=== PATIENT | female | born 1980 | race Caucasian/White ===

== ENCOUNTER 2019-11-22 02:27 | Emergency (ER) | payer OTHER, SELFPAY ==
--- NOTE | ~2019-11-22 | XR_ITS ---
EXAMINATION: XR chest 2V EXAM DATE: 11/22/2019 03:36 INDICATION: Mid chest pain, tightness and heaviness. TECHNIQUE: Frontal and lateral projections of the chest obtained and reviewed. Comparison is made to prior examination from 02/16/2010. FINDINGS: The lungs are clear. There are no pleural effusions. The cardiomediastinal silhouette is within normal limits. There is no pneumothorax suspected. The bones and soft tissues are unremarkab le. IMPRESSION: Normal chest x-ray exam. Reviewed, dictated and finalized at location A. IMPRESSION: Normal chest x-ray exam.
--- NOTE | 2019-11-22 02:38 | ECG_ITS ---
Measurements Intervals [place] Rate: 103 P: 56 IA: 136 QRS: 15 QRSD: 93 T: 28 QT: 350 QTc: 458 Interpretive Statements SINUS TACHYCARDIA BASELINE ARTIFACT- I, III, AVL BORDERLINE ECG Electronically Signed On 11-26-2019 8:03:07 CDT by Aaron Suero D.O.
[2019-11-22 02:40] VITALS: BP 86/50; PULSE 80; RESP 17; TEMP 36.4; O2SAT 100
[2019-11-22 02:50] VITALS: BP 129/103; PULSE 102; RESP 19; TEMP 36.6; O2SAT 100
[2019-11-22 03:00] VITALS: PULSE 80
[2019-11-22] MEDS: LORazepam INJ (*CRX) 2 MG/ML VIAL 0.5 MG IV PUSH (03:09)
[2019-11-22 03:24] LABS: Basophils Percent Auto 0.4 % (0.2-1.2); Eosinophils Absolute Auto 0.2 K/mm3 (0-0.3); Eosinophils Percent Auto 1.5 % (0-4.4); Hemoglobin 15.3 g/dL (12.0-15.0); Immature Granulocyte Absolute 0.03 K/mm3 (0.00-0.031); Immature Granulocyte Percent A 0.3 % (0-0.5); Lymphocytes Absolute Auto 3.07 K/mm3 (0.9-3.2); Lymphocytes Percent Auto 28.5 % (18.3-44.2); Mean Corpuscular Hemoglobin 30.1 pg (26-34); Mean Corpuscular Volume 88.4 fl (80-100); Mean Platelet Volume 11.1 fl (7.4-10.4); Monocytes Absolute Auto 0.5 K/mm3 (0.1-0.6); Monocytes Percent Auto 4.6 % (2.6-8.5); Neutrophils Percent Auto 64.7 % (45.5-73.1); Platelet Count Result 347 k/mm3 (150-375); Red Blood Count 5.09 M/mm3 (4.2-5.4); Red Cell Distribution Width 12.3 % (11.5-14.5); White Blood Count 10.8 K/mm3 (4.5-10.0)
[2019-11-22 03:38] LABS: INR 0.9
[2019-11-22 03:39] LABS: Partial Thromboplastin Time 31.5 SECONDS (22.3-36.8)
[2019-11-22 03:52] LABS: Anion Gap 9 mmol/L (8-16); Blood Urea Nitrogen 15 mg/dL (7-17); Calcium 9.7 mg/dL (8.4-10.2); Carbon Dioxide 31 mmol/L (22-30); Chloride 100 mmol/L (98-107); Estimated CRCL calculation 81 ml/min; Estimated Glomerular Filt Rate > 60; Glucose 171 mg/dL (65-105); Potassium 3.8 mmol/L (3.4-5.0); Sodium 140 mmol/L (137-145)
[2019-11-22 04:04] LABS: Troponin I < 0.012 ng/mL (0.000-0.034)
--- NOTE | 2019-11-22 04:08 | ED.CHESTPAIN ---
HPI - Chest Pain General Chief Complaint: Chest Pain Stated Complaint: Chest pain, near syncope Time Seen by Provider: 11/22/19 02:32 History of Present Illness HPI narrative: Patient is a 39-year-old female who presents the ER with chest pain. Sudden onset 30 minutes prior to arrival. Occurred after attempting to pass some gas. States she feels like she is breathing water in her lungs. She is very anxious about this, and she is also dizzy when everything occurred.. She is concerned it is related to missing a vein a couple of times while injecting meth over the last few days. She has no fevers or sweats or chills. No cough at this time. She is found no alleviating factors but has not tried any medications for it. Related Data Allergies Allergy/AdvReac Type Severity Reaction Status Date / Time erythromycin base Allergy Mild Verified 12/17/18 11:13 Penicillins Allergy Mild Rash Unverified 12/17/18 11:13 adhesive Allergy Unknown Verified 12/17/18 11:13 ampicillin Allergy Unknown Other Verified 12/17/18 11:13 HYDROMORPHONE HCL Allergy Unknown Uncoded 12/17/18 11:13 PCN Allergy Unknown Uncoded 01/17/16 10:15 Review of Systems Review of Systems: All systems reviewed & are unremarkable except as noted in HPI and below Constitutional: Constitutional: Denies chills, Denies fever(s) and Denies weakness ENT: Denies nasal congestion and Denies sore throat Cardiovascular: Cardiovascular: Reports chest pain, Denies rapid heart rate and Denies radiating jaw, neck or arm pain Respiratory: Respiratory: Denies cough, Denies dyspnea and Denies wheezing Gastrointestinal: Gastrointestinal: Denies abdominal pain, Denies nausea and Denies vomiting PMFSH Past Medical History Medical History (Updated 11/22/19 @ 06:44 by Tanmay Barriga MD) Anxiety Depression Hepatitis C Surgical History Surgical History (Updated 11/22/19 @ 04:11 by Tanmay Barriga MD) H/O exploratory laparotomy Hx of tonsillectomy Social History Social History (Updated 11/22/19 @ 04:11 by Tanmay Barriga MD) Substance use type: heroin and methamphetamine Exam Narrative: Exam Narrative: GENERAL: Anxious-appearing, well-nourished, and in no acute distress. HEAD: Normocephalic, atraumatic. ENT: Mucous membranes moist. CHEST: Clear to auscultation. No respiratory distress. HEART: Regular rate and rhythm. No murmur heard. Normal peripheral pulses. ABDOMEN: Soft, nontender, nondistended. EXTREMITIES: Normal range of motion. No edema. SKIN: Warm, dry, extensive track rob to the extremities. NEURO: Alert and oriented x3. Course Course Emergency Course: Patient informed of results reports she is still having some mild chest discomfort. Discussed that the troponin went up and I would like to admit her to the hospital. Contacted the hospitalist service. After orders have been written patient decided that she no longer wanted to stay in the hospital as her boyfriend's not can be able to stay with her and that there are specific visiting hours. She is opted to leave AGAINST MEDICAL ADVICE knowing that she risks and permanent disability. Vital Signs Vital signs: Vital Signs Temperature 97.6 F 11/22/19 02:40 Pulse Rate 80 11/22/19 02:40 Respiratory Rate 17 11/22/19 02:40 Blood Pressure 86/50 L 11/22/19 02:40 Pulse Oximetry 100 11/22/19 02:40 Temperature 97.8 F 11/22/19 02:50 Pulse Rate 90 11/22/19 05:18 Respiratory Rate 18 11/22/19 05:18 Blood Pressure 127/94 H 11/22/19 05:18 Pulse Oximetry 98 11/22/19 05:18 MDM - Chest Pain Lab Data Result diagrams: 11/22/19 03:13 11/22/19 03:13 Labs: Lab Results 11/22/19 11/22/19 11/22/19 Range/Units 03:13 03:13 03:13 WBC 10.8 H (4.5-10.0) K/mm3 RBC 5.09 (4.2-5.4) M/mm3 Hgb 15.3 H (12.0-15.0) g/dL Hct 45.0 (37.0-47.0) % MCV 88.4 (80-100) fl MCH 30.1 (26-34) pg MCHC 34.0 (32-36) g/dl RDW
[2019-11-22 05:18] VITALS: BP 127/94; PULSE 90; RESP 18; O2SAT 98
[2019-11-22 06:22] LABS: Troponin I 0.033 ng/mL (0.000-0.034)
[2019-11-22 06:47] VITALS: BP 99/57; PULSE 91; RESP 18; O2SAT 100
== END 2019-11-22 06:55 | disposition left against medical advice (07) ==
PROVIDERS: Emergency Provider Emergency Medicine
DX: R07.9 Chest pain, unspecified (principal); R00.0 Tachycardia, unspecified
CPT/HCPCS: 36415; 71046; 80048; 84484; 85025; 85610; 85730; 93005; 96374; 99284; J2060

== ENCOUNTER 2020-06-06 17:51 | Emergency (ER) | payer OTHER, SELFPAY ==
[2020-06-06 18:17] VITALS: BP 147/75; PULSE 107; RESP 16; TEMP 36.6; O2SAT 100
--- NOTE | 2020-06-06 18:19 | ED.DENTAL ---
HPI - Dental/Oral General Chief complaint: Dental/Oral Stated complaint: Tooth Pain Time Seen by Provider: 06/06/20 18:22 Source: patient, RN notes reviewed and old records reviewed Mode of arrival: ambulatory Limitations: no limitations History of Present Illness HPI Narrative: 39 year old female who presents to [facility] care with complaints of 3 day history of left upper dental pain to #14 tooth with redness and swelling to the upper gum area with tooth back missing and noted decay present. Patient states that she has taken Ibuprofen 800 mg with minimal pain decrease obtained, rates her pain as 6/10 described as aching and throbbing. Patient has history of sinus problems but denies any sinus drainage or congestion at this time admits to some feelings of ear pain on the left and some swelling to her facial area near gum of affected tooth.No known fevers, chills or sweats, no cough or any sinus drainage. MD Complaint: tooth pain Location: Tooth # (#14) Onset (ago): day(s) (3) Duration: constant Severity: moderate Severity scale (1-10): 6 Relieving factors: NSAIDs Exacerbating factors: chewing Context: history of dental caries Associated symptoms: gum swelling and ear pain Treatment prior to arrival: oral analgesic (Ibuprofen) Related Data Home Medications Medication Instructions Recorded Confirmed ibuprofen 800 mg PO TID 06/06/20 06/06/20 meloxicam 7.5 mg PO BID 06/06/20 06/06/20 naltrexone 50 mg PO DAILY 06/06/20 06/06/20 Allergies Allergy/AdvReac Type Severity Reaction Status Date / Time erythromycin base Allergy Mild Unknown Verified 06/06/20 18:05 Penicillins Allergy Mild Rash Unverified 12/17/18 11:13 adhesive Allergy Unknown Blister Verified 06/06/20 18:05 HYDROMORPHONE HCL Allergy Unknown Other Uncoded 06/06/20 18:05 Review of Systems Review of Systems: Narrative: CONSTITUTIONAL: Denies fever, chills, or sweats. EYES: Denies visual changes, redness, or discharge. ENT: Denies rhinorrhea, congestion, sore throat, positive for left ear otalgia, left upper dental pain with caries CARDIOVASCULAR: Denies chest pain, palpitations, or edema. RESPIRATORY: Denies cough or dyspnea. GASTROINTESTINAL: Denies abdominal pain, nausea, vomiting, or diarrhea. GENITOURINARY: Denies dysuria or hematuria. SKIN: Denies rash or itching. MUSCULOSKELETAL: Denies back pain, joint pain, or myalgia. NEUROLOGIC: Denies headache, numbness, or weakness. PSYCHIATRIC: positive for anxiety or depression. All systems reviewed & are unremarkable except as noted in HPI and below PMFSH Past Medical History Medical History Anxiety Depression Hepatitis C Surgical History Surgical History H/O exploratory laparotomy Hx of tonsillectomy Social History Social History (Updated 06/06/20 @ 18:54 by Zuleika Bailon NP) Smoking status: Current every day smoker Tobacco type: cigarettes Alcohol intake: former Substance use: former Substance use type: heroin and methamphetamine Last use: clean for over 2 years Living arrangements: with family Gender identity (if verbalized by the patient): Female Comments At time of signature, agree with nursing past medical, surgical, social and family history. There is no relevant family history pertinent to the presenting complaint Exam Narrative: Exam Narrative: GENERAL: Well-appearing, well-nourished, and in no acute distress. HEAD: Normocephalic, atraumatic. EYES: PERRLA and EOMI. ENT: Nares clear, no rhinorrhea or epistaxis. Mucous membranes moist. TM's normal with good light reflex, throat pink with no exudates or lesions, no tonsil enlargement, swelling of gum along #14 tooth with some tenderness to face near gum line with no noted swelling, states left ear tender with no lymph node swelling or abnormality to TM. NECK: Supple.no lymphadenopathy CHEST: Clear to auscultation. No respi
== END 2020-06-06 18:47 | disposition home or self-care (01) ==
PROVIDERS: Emergency Provider Registered Nurse
DX: K02.9 Dental caries, unspecified (principal); Z87.891 Personal history of nicotine dependence; Z86.19 Personal history of other infectious and parasitic diseases
CPT/HCPCS: 99213; G0463

== ENCOUNTER 2020-11-02 18:57 | Emergency (ER) | payer OTHER, SELFPAY ==
--- NOTE | 2020-11-02 19:05 | ED.UPPEXIN ---
HPI - Extremity Injury (Upper) General Chief Complaint: Extremity Injury, Upper Stated Complaint: Left arm injury Time Seen by Provider: 11/02/20 19:20 Source: patient and RN notes reviewed Mode of arrival: ambulatory Limitations: no limitations History of Present Illness HPI narrative: 49-year-old female presents with concern for area of redness, tenderness, warmth, swelling to the left forearm below the antecubital space. She reports a story of hitting the area on a nail yesterday. Did not notice any redness, warmth until someone pointed it out to her at work today. She denies fever, body aches, chills, sweats, denies any drainage from the area. Denies any distal numbness, tingling, decreased range of motion or strength. MD complaint: injury to: left and arm Related Data Home Medications Medication Instructions Recorded Confirmed ibuprofen 800 mg PO TID 06/06/20 06/06/20 meloxicam 7.5 mg PO BID 06/06/20 06/06/20 naltrexone 50 mg PO DAILY 06/06/20 06/06/20 Allergies Allergy/AdvReac Type Severity Reaction Status Date / Time erythromycin base Allergy Mild Unknown Verified 11/02/20 19:09 Penicillins Allergy Mild Rash Unverified 11/02/20 19:09 adhesive Allergy Unknown Blister Verified 11/02/20 19:09 HYDROMORPHONE HCL Allergy Unknown Other Uncoded 11/02/20 19:09 Review of Systems Review of Systems: CONSTITUTIONAL: Denies malaise, chills, sweats, or fever. CARDIOVASCULAR: Denies chest pain, palpitations, or edema. RESPIRATORY: Denies cough or dyspnea. SKIN: Reports redness, swelling, warmth, tenderness to the left forearm MUSCULOSKELETAL: Denies musculoskeletal pain or myalgia. NEUROLOGIC: Denies numbness, weakness All systems reviewed & are unremarkable except as noted in HPI and below PMFSH Past Medical History Medical History Anxiety Depression Hepatitis C Surgical History Surgical History H/O exploratory laparotomy Hx of tonsillectomy Family History Family History (Updated 06/06/20 @ 19:36 by Zuleika Bailon NP) Father Hypertension Mother Hx of psoriatic arthritis Cardiomyopathy Other Diabetes mellitus Social History Social History (Updated 06/06/20 @ 18:54 by Zuleika Bailon NP) Smoking status: Current every day smoker Tobacco type: cigarettes Alcohol intake: former Substance use: former Substance use type: heroin and methamphetamine Last use: clean for over 2 years Gender identity (if verbalized by the patient): Female Comments At time of signature, agree with nursing past medical, surgical, social and family history. There is no relevant family history pertinent to the presenting complaint Exam Narrative: GENERAL: Well-appearing, well-nourished, and in no acute distress. HEAD: Normocephalic, atraumatic. EYES: PERRLA, conjunctivae clear NECK: Supple. CHEST: Speaks in full sentences. No respiratory distress. HEART: Regular rate and rhythm. Normal and equal peripheral pulses. EXTREMITIES: Left arm, hand, digits have normal strength and sensation, normal range of motion. No generalized edema or ecchymosis. Grossly normal sensation with sensitivity to light touch and pain. No point tenderness. Capillary refill less than 3 seconds. SKIN: Warm, dry. 4 cm raised area of erythema, induration, warmth without fluctuation with a central puncture wound noted. Patient's arms and legs have scattered puncture wounds in various stages of healing none with signs of infection. NEURO: Alert and oriented x3. PSYCH: Normal mood and affect Course Course Emergency Course: Patient is aware of diagnosis, understands and agrees to treatment plan. Anticipatory guidance given. Patient agrees to follow-up as directed and is aware of reasons to seek care at the emergency department. Portions of this record may have been created with voice recognition software Vital Signs Vital sig
[2020-11-02 19:08] VITALS: BP 115/60; PULSE 96; RESP 18; TEMP 36.5; O2SAT 100
[2020-11-02] MEDS: TETANUS,DIPHTHERIA,AC PERTUSSIS ADULT (0.5 ML) BOOSTRIX IM (19:55)
== END 2020-11-02 19:52 | disposition home or self-care (01) ==
PROVIDERS: Emergency Provider Nurse Practitioner
DX: L03.114 Cellulitis of left upper limb (principal); Z23 Encounter for immunization; F17.210 Nicotine dependence, cigarettes, uncomplicated; Z86.19 Personal history of other infectious and parasitic diseases
CPT/HCPCS: 90471; 90715; 99213; G0463

== ENCOUNTER 2021-01-22 09:07 | Emergency (ER) | payer OTHER, SELFPAY ==
[2021-01-22 09:09] VITALS: BP 134/66; PULSE 95; RESP 16; TEMP 36.6; O2SAT 100
--- NOTE | 2021-01-22 10:38 | ED.URI ---
HPI - URI/Sore Throat General Chief Complaint: Upper Respiratory Infection Stated Complaint: Sore Throat Time Seen by Provider: 01/22/21 10:39 Source: patient Mode of arrival: ambulatory Limitations: no limitations History of Present Illness HPI Narrative: Julia Sheldon is a 40 yo female with a H substance abuse who comes with a very sore throat that is evolved over the last 2 days to the point that she can barely swallow; she has no tonsils yet she has a lot of swelling in the pharynx and swollen lymph nodes, afebrile Related Data Allergies Allergy/AdvReac Type Severity Reaction Status Date / Time erythromycin base Allergy Mild Unknown Verified 01/22/21 09:53 Penicillins Allergy Mild Rash Unverified 01/22/21 09:53 adhesive Allergy Unknown Blister Verified 01/22/21 09:53 HYDROMORPHONE HCL Allergy Unknown Other Uncoded 01/22/21 09:53 Review of Systems Review of Systems: CONSTITUTIONAL: Denies fever, chills, sweats. EYES: Denies visual changes, redness, discharge. ENT: Denies rhinorrhea, congestion, has sore throat, otalgia. Has enlarged lymph nodes CARDIOVASCULAR: Denies chest pain, palpitations, edema. RESPIRATORY: Denies dyspnea, wheezing, cough GASTROINTESTINAL: Denies abdominal pain, nausea, vomiting, diarrhea. GENITOURINARY: Denies dysuria, hematuria, abnormal discharge SKIN: Denies rash or itching. NEUROLOGIC: Denies numbness, or focal weakness. PSYCHIATRIC: Denies anxiety or depression. PMFSH Past Medical History Medical History Anxiety Depression Hepatitis C Substance abuse Surgical History Surgical History H/O exploratory laparotomy Hx of tonsillectomy Family History Family History Father Hypertension Mother Hx of psoriatic arthritis Cardiomyopathy Other Diabetes mellitus Social History Social History Smoking status: Current every day smoker Tobacco type: cigarettes Alcohol intake: former Substance use: former Substance use type: heroin and methamphetamine Last use: clean for over 2 years Gender identity (if verbalized by the patient): Female Comments At time of signature, I agree with nursing past medical, surgical, social and family history. There is no relevant family history pertinent to the presenting complaint. Exam Narrative: GENERAL: This is a well-nourished, well-developed patient, in moderate distress. HEAD: normocephalic, atraumatic. EYES: Sclera clear/white. Vision is grossly intact. EARS: External ears normal, Hearing grossly intact. NOSE: External nose normal without nasal discharge, nares without redness, no rhinorrhea. THROAT: Mucous membranes moist, posterior pharynx 2+ edema with severe erythema NECK: Neck supple, tender lymph nodes with edema CARDIOVASCULAR: Regular rate and rhythm without murmurs, gallops, or rubs. RESPIRATORY: Clear to auscultation. Breath sounds equal bilaterally. No wheezes, rales, or rhonchi. GASTROINTESTINAL: Abdomen soft, SKIN: warm, intact with no suspicious lesions or rash, good texture and turgor. NEURO: awake, alert, and oriented to person, place and time. There were no obvious focal neurologic abnormalities. Steady gait EXTREMITIES: Normal range of motion. BACK: Nontender without deformity Course Course Emergency Course: Patient here with severe sore throat that started yesterday and states she is almost cannot swallow Strep test positive Started on Zithromax because she is severely allergic to penicillins, Medrol Dosepak, viscous lidocaine Vital Signs Vital signs: Vital Signs Temperature 97.9 F 01/22/21 09:09 Pulse Rate 95 01/22/21 09:09 Respiratory Rate 16 01/22/21 09:09 Blood Pressure 134/66 01/22/21 09:09 Pulse Oximetry 100 01/22/21 09:09 Temperature 97.9 F 01/22/21 09
== END 2021-01-22 10:55 | disposition home or self-care (01) ==
PROVIDERS: Emergency Provider Nurse Practitioner
DX: J02.0 Streptococcal pharyngitis (principal); F17.210 Nicotine dependence, cigarettes, uncomplicated
CPT/HCPCS: 87880; 99213; G0463

== ENCOUNTER 2021-11-11 14:00 | Emergency (ER) | payer OTHER, SELFPAY ==
--- NOTE | 2021-11-11 14:06 | ED.URI ---
HPI - URI/Sore Throat General Chief Complaint: Upper Respiratory Infection Stated Complaint: Sore throat, ear ache Time Seen by Provider: 11/11/21 14:15 Source: patient and RN notes reviewed Mode of arrival: ambulatory Limitations: no limitations History of Present Illness HPI Narrative: 40-year-old male presents to concern for 3-day history of sore throat. She reports she is concerned for exposure to after oral sex to STDs. She denies any vaginal discharge, dysuria, vaginal lesions or rash. She reports general malaise, denies fever, body aches, chills, sweats. MD elicited complaint: sore throat Related Data Allergies Allergy/AdvReac Type Severity Reaction Status Date / Time erythromycin base Allergy Mild Unknown Verified 11/11/21 14:31 Penicillins Allergy Mild Rash Unverified 11/11/21 14:31 adhesive Allergy Unknown Blister Verified 11/11/21 14:31 HYDROMORPHONE HCL Allergy Unknown Other Uncoded 11/11/21 14:31 Review of Systems Review of Systems: CONSTITUTIONAL: Denies malaise, chills, sweats, or fever. EYES: Denies visual changes, redness, or discharge. ENT: Denies rhinorrhea, congestion, sinus pain. Reports sore throat and otalgia CARDIOVASCULAR: Denies chest pain, palpitations, or edema. RESPIRATORY: Denies cough. Denies dyspnea. GASTROINTESTINAL: Denies abdominal pain, nausea, vomiting, diarrhea SKIN: Denies rash or itching. MUSCULOSKELETAL: Denies myalgia. NEUROLOGIC: Denies headache. All systems reviewed & are unremarkable except as noted in HPI and below PMFSH Past Medical History Medical History Anxiety Depression Hepatitis C Substance abuse Surgical History Surgical History H/O exploratory laparotomy Hx of tonsillectomy Family History Family History Father Hypertension Mother Hx of psoriatic arthritis Cardiomyopathy Other Diabetes mellitus Social History Social History Smoking status: Current every day smoker Tobacco type: cigarettes Alcohol intake: former Substance use: former Substance use type: heroin and methamphetamine Last use: clean for over 2 years Gender identity (if verbalized by the patient): Female Comments At time of signature, agree with nursing past medical, surgical, social and family history. There is no relevant family history pertinent to the presenting complaint Exam Narrative: GENERAL: Well-appearing, well-nourished, and in no acute distress. HEAD: Normocephalic EYES: PERRLA, conjunctivae clear ENT: Nares clear. Mucous membranes moist. TM pearly kline with sharp light reflex bilaterally; no tragal tenderness. Oropharynx not erythematous without lesions. Tonsils not enlarged and without exudate, no drooling, no hoarseness, no trismus, uvula midline. NECK: Supple. No lymphadenopathy CHEST: Clear to auscultation, breath sounds equal. No wheezing, rhonchi, rales, or stridor. No respiratory distress, speaks in full sentences. HEART: Regular rate and rhythm. No murmur heard. SKIN: Warm, dry, no rash. NEURO: Alert and oriented x3. PSYCH: Normal mood and affect Course Course Emergency Course: Although patient reports an allergy to penicillin, she reports she has never had any problems with Rocephin which she has received before. Patient would like a shot of Rocephin to be treated for potential STDs. Patient is aware of diagnosis, understands and agrees to treatment plan. Anticipatory guidance given. Patient agrees to follow-up as directed and is aware of reasons to seek care at the emergency department. Portions of this record may have been created with voice recognition software Level of Care: Express Care Visit Vital Signs Vital signs: Vital Signs Temperature 97.2 F L 11/11/21 14:10 Pulse Rate 92 11/11/21 14:10 Respiratory Rate 18
[2021-11-11 14:10] VITALS: BP 138/66; PULSE 92; RESP 18; TEMP 36.2; O2SAT 100
[2021-11-11] MEDS: cefTRIAXone 500 MG, LIDOCAINE HCL 1% LOCAL INJ 1 ML IM (15:22)
== END 2021-11-11 15:50 | disposition home or self-care (01) ==
PROVIDERS: Emergency Provider Nurse Practitioner
DX: J02.9 Acute pharyngitis, unspecified (principal); A54.9 Gonococcal infection, unspecified; Z86.19 Personal history of other infectious and parasitic diseases; F17.210 Nicotine dependence, cigarettes, uncomplicated
CPT/HCPCS: 87081; 87491; 87591; 87661; 87880; 96372; 99214; G0463; J0696

== ENCOUNTER 2021-12-10 09:26 | Emergency (ER) | payer OTHER, SELFPAY ==
[2021-12-10 09:36] VITALS: BP 155/77; PULSE 114; RESP 16; TEMP 37.8; O2SAT 100
--- NOTE | 2021-12-10 09:55 | ED.UPPEXIN ---
HPI - Extremity Injury (Upper) General Chief Complaint: Fever Stated Complaint: Fever, Chills, Headache Time Seen by Provider: 12/10/21 09:56 Source: patient, RN notes reviewed and old records reviewed Mode of arrival: ambulatory Limitations: no limitations History of Present Illness HPI narrative: 41-year-old female presents to the [facility] with complaints of fever, chills and headache for 2 days. Patient reports that a co-worker tested positive for influenza A. Has tried Sudafed and ibuprofen yesterday. Denies chest pain or shortness of breath. No nausea vomiting or diarrhea. Related Data Home Medications Medication Instructions Recorded Confirmed No Home Medications 12/10/21 12/10/21 Allergies Allergy/AdvReac Type Severity Reaction Status Date / Time erythromycin base Allergy Mild Unknown Verified 12/10/21 09:55 Penicillins Allergy Mild Rash Verified 12/10/21 09:55 adhesive Allergy Unknown Blister Verified 12/10/21 09:55 amoxicillin [From Augmentin] Allergy Diarrhea Verified 12/10/21 09:55 clavulanic acid Allergy Diarrhea Verified 12/10/21 09:55 [From Augmentin] HYDROMORPHONE HCL Allergy Unknown Other Uncoded 12/10/21 09:55 Review of Systems Review of Systems: All systems reviewed & are unremarkable except as noted in HPI and below Constitutional: Constitutional: Reports no additional constitutional complaints, Denies chills and Denies fever(s) Eyes: Eyes: Reports no additional eye complaints ENT: Reports as per HPI Cardiovascular: Cardiovascular: Reports no additional cardiovascular complaints Respiratory: Respiratory: Reports no additional respiratory complaints Gastrointestinal: Gastrointestinal: Reports no additional gastrointestinal complaints Musculoskeletal: Musculoskeletal: Reports no additional musculoskeletal complaints Integumentary/Breasts: Skin/Breast: Reports system reviewed and no additional complaints, except as docu Neurologic: Reports system reviewed and no additional complaints, except as documented Psychiatric: Psychiatric: Reports no additional psychiatric complaints Allergic/Immunologic: Allergic/Immunologic: Reports no additional allergic/immunologic complaints PMFSH Past Medical History Medical History Anxiety Depression Hepatitis C Substance abuse Surgical History Surgical History H/O exploratory laparotomy Hx of tonsillectomy Family History Family History Father Hypertension Mother Hx of psoriatic arthritis Cardiomyopathy Other Diabetes mellitus Social History Social History Smoking status: Current every day smoker Tobacco type: cigarettes Alcohol intake: former Substance use: former Substance use type: heroin and methamphetamine Last use: clean for over 2 years Gender identity (if verbalized by the patient): Female Comments At the time of my signature, I reviewed and agree with the nursing past medical, surgical, social, and family history. There is no relevant family history pertinent to the patient complaint. Exam Const: General: healthy appearing, no acute distress, alert and well nourished Nutritional Appearance: well nourished Orientation/consciousness: patient oriented x3 Limitations: no limitations HENMT: Head: normal to inspection Ears: external ears normal, TM's normal bilaterally and EAC's normal Face/Nose/Sinus: Normal external nose present Face and sinus: normal facial exam Throat: posterior oropharynx normal and uvula midline Eyes: General: appearance normal, both eyes and all related structures Conjunctivae: conjunctivae normal Pupils: Equal, round and reactive pupils present Neck: Neck: normal visual inspection, no lymphadenopathy and no meningeal signs Chest: Chest palpation & inspecti
[2021-12-10 20:40] LABS: SARS-CoV-2 RNA PCR Negative
== END 2021-12-10 11:00 | disposition home or self-care (01) ==
PROVIDERS: Emergency Provider Nurse Practitioner
DX: B34.9 Viral infection, unspecified (principal); Z20.822 Contact with and (suspected) exposure to COVID-19; F17.210 Nicotine dependence, cigarettes, uncomplicated; Z86.19 Personal history of other infectious and parasitic diseases
CPT/HCPCS: 87426; 87804; 99213; C9803; G0463; U0003; U0005

== ENCOUNTER 2021-12-20 12:33 | Emergency (ER) | payer OTHER, SELFPAY ==
[2021-12-20 12:48] VITALS: BP 126/59; PULSE 98; RESP 16; TEMP 36.8; O2SAT 99
--- NOTE | 2021-12-20 13:03 | ED.URI ---
HPI - URI/Sore Throat General Chief Complaint: Upper Respiratory Infection Stated Complaint: Coughing, Sinus Time Seen by Provider: 12/20/21 13:03 Source: patient, RN notes reviewed and old records reviewed Mode of arrival: ambulatory Limitations: no limitations History of Present Illness HPI Narrative: 41-year-old female presents to the [facility] with complaints of cough and sinus congestion. Was seen on the 10 of December 10 days to and diagnosed with a viral infection. Symptoms a total of 12 days. Denies fevers. MD elicited complaint: cough and sore throat Related Data Allergies Allergy/AdvReac Type Severity Reaction Status Date / Time erythromycin base Allergy Mild Unknown Verified 12/20/21 13:03 Penicillins Allergy Mild Rash Verified 12/20/21 13:03 adhesive Allergy Unknown Blister Verified 12/20/21 13:03 amoxicillin [From Augmentin] Allergy Diarrhea Verified 12/20/21 13:03 clavulanic acid Allergy Diarrhea Verified 12/20/21 13:03 [From Augmentin] HYDROMORPHONE HCL Allergy Unknown Other Uncoded 12/20/21 13:03 Review of Systems Review of Systems: All systems reviewed & are unremarkable except as noted in HPI and below Constitutional: Constitutional: Reports no additional constitutional complaints, Denies chills and Denies fever(s) Eyes: Eyes: Reports no additional eye complaints ENT: Reports system reviewed and no additional complaints, except as documented Cardiovascular: Cardiovascular: Reports no additional cardiovascular complaints Respiratory: Respiratory: Reports as per HPI, Reports cough and Denies dyspnea Gastrointestinal: Gastrointestinal: Reports no additional gastrointestinal complaints Musculoskeletal: Musculoskeletal: Reports no additional musculoskeletal complaints Integumentary/Breasts: Skin/Breast: Reports system reviewed and no additional complaints, except as docu Neurologic: Reports system reviewed and no additional complaints, except as documented Psychiatric: Psychiatric: Reports no additional psychiatric complaints Allergic/Immunologic: Allergic/Immunologic: Reports no additional allergic/immunologic complaints PMFSH Past Medical History Medical History Anxiety Depression Hepatitis C Substance abuse Surgical History Surgical History H/O exploratory laparotomy Hx of tonsillectomy Family History Family History Father Hypertension Mother Hx of psoriatic arthritis Cardiomyopathy Other Diabetes mellitus Social History Social History Smoking status: Current every day smoker Tobacco type: cigarettes Alcohol intake: former Substance use: former Substance use type: heroin and methamphetamine Last use: clean for over 2 years Gender identity (if verbalized by the patient): Female Comments At the time of my signature, I reviewed and agree with the nursing past medical, surgical, social, and family history. There is no relevant family history pertinent to the patient complaint. Exam Const: General: healthy appearing, no acute distress, alert and well nourished Nutritional Appearance: well nourished Orientation/consciousness: patient oriented x3 Limitations: no limitations HENMT: Head: normal to inspection Ears: external ears normal, TM's normal bilaterally and EAC's normal Face/Nose/Sinus: Normal external nose present Face and sinus: normal facial exam Mouth: Yes Normal oral and palatal mucosa present, Yes lip normal and Yes moist mucous membranes Throat: posterior oropharynx normal and uvula midline Eyes: General: appearance normal, both eyes and all related structures Conjunctivae: conjunctivae normal Pupils: Equal, round and reactive pupils present Neck: Neck: normal visual inspection, no lymphadenopathy and no meningeal signs C
== END 2021-12-20 13:28 | disposition home or self-care (01) ==
PROVIDERS: Emergency Provider Nurse Practitioner
DX: J40 Bronchitis, not specified as acute or chronic (principal); F17.210 Nicotine dependence, cigarettes, uncomplicated; Z86.19 Personal history of other infectious and parasitic diseases
CPT/HCPCS: 99213; G0463

== ENCOUNTER 2022-01-18 21:21 | Emergency (ER) | payer OTHER, SELFPAY ==
--- NOTE | ~2022-01-18 | CT_ITS ---
EXAMINATION: CT abdomen pelvis w con DATE: 01/19/2022 02:41 INDICATION: Right lower quadrant abdominal pain. TECHNIQUE: Computed tomography (CT) of the abdomen and pelvis was performed with 100 mL Omnipaque 350 intravenous contrast. Automated exposure control and iterative reconstruction technique were employe d. The dose-length product was 650.70 mGy-cm. COMPARISON: CT abdomen and pelvis 05/04/2005 FINDINGS: The visualized portions of the lung bases demonstrate mild atelectasis. No pleural effusion . The heart size is normal. No pericardial effusion. The liver and gallbladder are normal. There is a 14 mm cyst in the spleen. The pancreas, adrenal glands, and kidneys are normal. There are no dilated loops of bowel. The appendix is normal. There are no pathologically enlarged lymph nodes. There is n o free intraperitoneal fluid. There is an umbilical hernia containing fat. There is mild thoracolumba r spondylosis. There is mild chronic anterior wedging of T11-L1 vertebral bodies. IMPRESSION: 1. Umbilical hernia containing fat. Reviewed, dictated and finalized at location [facility]
[2022-01-18 21:30] VITALS: BP 146/94; PULSE 105; RESP 18; TEMP 36.4; O2SAT 100
--- NOTE | 2022-01-18 21:50 | PC.NURSE ---
Was unable to obtain blood at this time
[2022-01-18 22:36] LABS: Appearance Urine Clear (Clear); Bilirubin Urine Negative (Negative); Blood Urine Negative (Negative); Color Urine Yellow (Yellow); Glucose Urine UA Negative (Negative); Ketones Urine Trace mg/dL (Negative); Leukocyte Esterase Ur Negative LEU/UL (Negative); Nitrate Urine Negative (Negative); Protein Urine Negative (Negative); Specific Grav Ur >= 1.030 (1.001-1.035); Urobilinogen Urine 0.2 mg/dL (<2.0); pH Urine 6.5 (5.0-9.0)
[2022-01-18 23:03] LABS: Mucus Urine Rare /lpf; RBC Urine 0-2 /hpf (0-2); Squamous Epithelial Cell Urine Rare /hpf (Few); WBC Urine 0-3 /hpf
[2022-01-18 23:14] LABS: Add Urine Microscopic? YES
--- NOTE | 2022-01-19 00:02 | ED.ABDPAIN ---
HPI - Abdominal Pain General Chief Complaint: Abdominal Pain Stated Complaint: Right Lower ABD Pain Time Seen by Provider: 01/18/22 23:41 Source: patient Mode of arrival: ambulatory Limitations: no limitations History of Present Illness HPI narrative: Patient is a 41-year-old female with a history of former narcotic abuse, PCOS, presenting to the emergency department for evaluation of right lower quadrant abdominal pain. Pain is aching, sharp in nature located in the right lower quadrant, right pelvic area. Acute onset this evening while she was at work. Patient without radiation of the pain to the back, does report radiation of the pain into the lower pelvis. She denies vaginal pain, bleeding or discharge. She denies recent intercourse. No recent fall or trauma. Patient denies fever, chills, nausea, vomiting. No upper abdominal pain. She denies chest pain or shortness of breath. Patient denies dysuria or hematuria. Denies diarrhea or constipation. Patient with history of this in the past, states feels similar to ruptured cyst. She denies any significant abdominal distention. 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 Related Data Allergies Allergy/AdvReac Type Severity Reaction Status Date / Time erythromycin base Allergy Mild Unknown Verified 12/20/21 13:03 Penicillins Allergy Mild Rash Verified 12/20/21 13:03 adhesive Allergy Unknown Blister Verified 12/20/21 13:03 amoxicillin [From Augmentin] Allergy Diarrhea Verified 12/20/21 13:03 clavulanic acid Allergy Diarrhea Verified 12/20/21 13:03 [From Augmentin] HYDROMORPHONE HCL Allergy Unknown Other Uncoded 12/20/21 13:03 Review of Systems Review of Systems: CONSTITUTIONAL: Denies fever, chills, or sweats. ENT: Denies rhinorrhea, congestion, sore throat, or otalgia. CARDIOVASCULAR: Denies chest pain, palpitations, or edema. RESPIRATORY: Denies cough or dyspnea. GASTROINTESTINAL: Reports right lower quadrant abdominal pain/right pelvic pain, denies nausea, vomiting, diarrhea GENITOURINARY: Denies dysuria or hematuria. SKIN: Denies rash or itching. MUSCULOSKELETAL: Denies back pain, joint pain, or myalgia. Denies flank tenderness. NEUROLOGIC: Denies headache, numbness, or weakness. [facility] Past Medical History Medical History Anxiety Depression Hepatitis C Substance abuse Surgical History Surgical History H/O exploratory laparotomy Hx of tonsillectomy Family History Family History Father Hypertension Mother Hx of psoriatic arthritis Cardiomyopathy Other Diabetes mellitus Social History Social History Smoking status: Current every day smoker Tobacco type: cigarettes Alcohol intake: former Substance use: former Substance use type: heroin and methamphetamine Last use: clean for over 2 years Gender identity (if verbalized by the patient): Female Exam Narrative: GENERAL: Awake, alert, conversant HEAD: Normocephalic, atraumatic. EYES: PERRLA and EOMI. ENT: Nares clear, no rhinorrhea or epistaxis. Mucous membranes dry NECK: Supple. CHEST: No respiratory distress, breathing even and non labored HEART: Mild tachycardic rate, sinus rhythm ABDOMEN:Non distended, tender in the right lower quadrant without rebound, rigidity or guarding, no CVA tenderness bilaterally EXTREMITIES: Normal range of motion. Chronic venous stasis changes bilateral lower extremities.. SKIN: Warm, dry, no rash. NEURO:No focal deficits. Alert and oriented x3 Course Vital Signs Vital signs: Vital Signs Temperature 36.4 C L 01/18/22 21:30 Pulse Rate 105 H 01/18/22 21:30 Respiratory Rate 18 01/18/22 21:30 Blood Pressure 146/94 H 01/18/22 21:30 Pulse Oximetry 100 01/18/22 21:30 Oxy
[2022-01-19] MEDS: SODIUM CHLORIDE 0.9% IV 1,000 ML 999 ML IV CONT (00:43)
[2022-01-19] MEDS: ONDANSETRON INJ 4 MG/2 ML VIAL IV PUSH (00:44)
[2022-01-19] MEDS: MORPHINE SULFATE (*CRX) 4 MG/ML INJ 2 MG IV PUSH (00:44)
[2022-01-19 00:50] VITALS: BP 120/71; PULSE 83; RESP 18; O2SAT 98
[2022-01-19 01:01] VITALS: BP 119/72; PULSE 82; RESP 18; O2SAT 100
[2022-01-19 01:37] LABS: Basophils Percent Auto 0.5 % (0.2-1.2); Eosinophils Absolute Auto 0.1 K/mm3 (0-0.3); Eosinophils Percent Auto 0.8 % (0-4.4); Hematocrit 40.5 % (37.0-47.0); Hemoglobin 13.4 g/dL (12.0-15.0); Immature Granulocyte Absolute 0.02 K/mm3 (0.00-0.031); Immature Granulocyte Percent A 0.3 % (0-0.5); Lymphocytes Absolute Auto 2.46 K/mm3 (0.9-3.2); Lymphocytes Percent Auto 31.6 % (18.3-44.2); Mean Corpuscular HGB Conc 33.1 g/dl (32-36); Mean Corpuscular Hemoglobin 30.4 pg (26-34); Mean Corpuscular Volume 91.8 fl (80-100); Mean Platelet Volume 10.5 fl (7.4-10.4); Monocytes Absolute Auto 0.5 K/mm3 (0.1-0.6); Neutrophils Absolute Auto 4.7 K/mm3 (1.3-6.7); Neutrophils Percent Auto 60.8 % (45.5-73.1); Platelet Count Result 270 k/mm3 (150-375); Red Blood Count 4.41 M/mm3 (4.2-5.4); Red Cell Distribution Width 12.4 % (11.5-14.5); White Blood Count 7.8 K/mm3 (4.5-10.0)
[2022-01-19 01:39] LABS: Alanine Aminotransferase 23 U/L (6-35); Albumin Level 4.5 g/dL (3.5-5.1); Alkaline Phosphatase 81 U/L (38-126); Anion Gap 8 mmol/L (8-16); Aspartate Amino Transferase 26 U/L (14-36); Bilirubin,Total 0.5 mg/dL (0.2-1.3); Blood Urea Nitrogen 21 mg/dL (7-17); Calcium 8.7 mg/dL (8.4-10.2); Carbon Dioxide 28 mmol/L (22-30); Chloride 103 mmol/L (98-107); Estimated CRCL calculation 86 ml/min; Estimated Glomerular Filt Rate > 60; Glucose 103 mg/dL (65-110); Lipase 58 U/L (23-300); Sodium 139 mmol/L (137-145)
[2022-01-19 02:01] VITALS: BP 120/63; PULSE 86; RESP 18; O2SAT 99
[2022-01-19 05:22] VITALS: BP 110/75; PULSE 77; RESP 18; O2SAT 97
== END 2022-01-19 05:24 | disposition home or self-care (01) ==
PROVIDERS: Emergency Provider Emergency Medicine
DX: R10.31 Right lower quadrant pain (principal); E28.2 Polycystic ovarian syndrome; Z86.19 Personal history of other infectious and parasitic diseases; F17.210 Nicotine dependence, cigarettes, uncomplicated
CPT/HCPCS: 36415; 74177; 80053; 81001; 81025; 83690; 85025; 96365; 96375; 99284; J0131; J2270; J2405; J7030; Q9967

== ENCOUNTER 2022-08-08 09:50 | Emergency (ER) | payer OTHER, SELFPAY ==
[2022-08-08 10:06] VITALS: BP 143/81; PULSE 107; RESP 16; TEMP 36.8; O2SAT 100
--- NOTE | 2022-08-08 10:21 | ED.URI ---
HPI - URI/Sore Throat General Chief Complaint: Upper Respiratory Infection Stated Complaint: Sore Throat/ Neck/Ear Irritation History of Present Illness HPI Narrative: 41-year-old female presented for complaint of sore throat worsening over the past 3 days. She reports she is concerned for exposure to STDs after oral sex with a new partner the day prior to symptom onset. She has had 'std in the throat' in the past and states symptoms feel similar. Endorses right lymph node swelling and tenderness, sinus congestion and drainage.? She denies any vaginal discharge, dysuria, vaginal lesions or rash.? She denies cough, sob, n/v/d/ fever, body aches, chills, sweats. History of pharyngeal gonorrhea 10/2021. Related Data Allergies Allergy/AdvReac Type Severity Reaction Status Date / Time erythromycin base Allergy Mild Unknown Verified 08/08/22 10:13 Penicillins Allergy Mild Rash Verified 08/08/22 10:13 adhesive Allergy Unknown Blister Verified 08/08/22 10:13 amoxicillin [From Augmentin] Allergy Diarrhea Verified 08/08/22 10:13 clavulanic acid Allergy Diarrhea Verified 08/08/22 10:13 [From Augmentin] HYDROMORPHONE HCL Allergy Unknown Other Uncoded 08/08/22 10:13 Review of Systems Review of Systems: CONSTITUTIONAL: Denies body aches, fever, chills, or sweats. EYES: Denies visual changes, redness, or discharge. ENT: Reports sore throat, rhinorrhea, congestion CARDIOVASCULAR: Denies chest pain, palpitations, or edema. RESPIRATORY: Denies dyspnea. GASTROINTESTINAL: Denies abdominal pain, nausea, vomiting, or diarrhea. SKIN: Denies rash, itching, or wounds. MUSCULOSKELETAL: Denies back pain, joint pain, or myalgia. NEUROLOGIC: Denies headache PMFSH Past Medical History Medical History Anxiety Depression Hepatitis C Substance abuse Surgical History Surgical History H/O exploratory laparotomy Hx of tonsillectomy Family History Family History Father Hypertension Mother Hx of psoriatic arthritis Cardiomyopathy Other Diabetes mellitus Social History Social History Smoking status: Current every day smoker Tobacco type: cigarettes Alcohol intake: former Substance use: former Substance use type: heroin and methamphetamine Last use: clean for over 2 years Living arrangements: with family Gender identity (if verbalized by the patient): Female Exam Narrative: GENERAL: mildly Ill-appearing, no acute distress. EYES: conjunctivae clear ENT: Mucous membranes moist. TMs pearly kline with normal light reflex bilaterally; no tragal tenderness. Oropharynx erythematous without lesions. Tonsils absent; No drooling, no hoarseness, no trismus, uvula midline with white discoloration. No tripod positioning, hot potato voice, or soft palate swelling. NECK: Supple. right anterior cervical lymphadenopathy CHEST: Clear to auscultation, breath sounds equal. No respiratory distress, speaks in full sentences. HEART: Regular rate and rhythm. No murmur heard. SKIN: Warm, dry, no rash. NEURO: Alert and oriented x3. Course Course Emergency Course: Patient is aware of diagnosis, understands and agrees to treatment plan. Anticipatory guidance given. Patient agrees to follow-up as directed and is aware of reasons to seek care at the emergency department. Portions of this record may have been created with voice recognition software Level of Care: Express Care Visit Vital Signs Vital signs: Vital Signs Temperature 98.3 F 08/08/22 10:06 Pulse Rate 107 H 08/08/22 10:06 Respiratory Rate 16 08/08/22 10:06 Blood Pressure 143/81 H 08/08/22 10:06 Pulse Oximetry 100 08/08/22 10:06 Oxygen Delivery Room Air 08/08/22 10:06 Temperature 98.3 F 08/08/22 10:06 Pulse
[2022-08-08] MEDS: cefTRIAXone 500 MG, LIDOCAINE HCL 1% LOCAL INJ 1 ML IM (10:51)
== END 2022-08-08 11:17 | disposition home or self-care (01) ==
PROVIDERS: Emergency Provider Nurse Practitioner Family
DX: J02.9 Acute pharyngitis, unspecified (principal); Z20.2 Contact with and (suspected) exposure to infections with a predominantly sexual mode of transmission; F17.210 Nicotine dependence, cigarettes, uncomplicated
CPT/HCPCS: 81025; 87081; 87591; 87880; 96372; 99214; G0463; J0696

== ENCOUNTER 2023-01-21 15:21 | Emergency (ER) | payer OTHER, SELFPAY ==
[2023-01-21 15:32] VITALS: BP 141/73; PULSE 99; RESP 16; TEMP 36.3; O2SAT 99
[2023-01-21 15:35] VITALS: BP 141/73; PULSE 99; RESP 16; TEMP 36.3; O2SAT 99
--- NOTE | 2023-01-21 15:57 | ED.EYEPROB ---
HPI - Eye Problem General Chief complaint: Eye Problems Stated complaint: both eyes red,painful Time Seen by Provider: 01/21/23 15:57 Source: patient Mode of arrival: ambulatory Limitations: no limitations History of Present Illness HPI Narrative: 42 yo F presents with c/o R eye redness, swelling, irritation and drainage for several days. No vision change. Was seen at another and told did not think was conjunctivitis more of a orbital cellulitis . pt given bactrim and erythromycin. Pt reports no redness, swelling, tenderness to face or around eye at time of being seen. She has been using erythromycin ointment and eye redness and swellign worse. States burning when she places eye ointment. Called and was told possible allergy. pt then remembered shes allergic to azithromycin. All systems reviewed and negative except as noted above. Related Data Home Medications Medication Instructions Recorded Confirmed sulfamethoxazole 800 1 tablet PO BID 01/21/23 01/21/23 mg-trimethoprim 160 mg tablet Allergies Allergy/AdvReac Type Severity Reaction Status Date / Time adhesive Allergy Intermediate Blister Verified 01/21/23 16:02 ampicillin Allergy Intermediate Hives Verified 01/21/23 16:02 erythromycin base Allergy Intermediate Hives Verified 01/21/23 16:02 Penicillins Allergy Intermediate Rash Verified 01/21/23 16:02 amoxicillin [From Augmentin] Allergy Mild Diarrhea Verified 01/21/23 16:02 clavulanic acid Allergy Mild Diarrhea Verified 01/21/23 16:02 [From Augmentin] HYDROMORPHONE HCL Allergy Unknown Other Uncoded 01/21/23 16:02 Review of Systems Review of Systems: CONSTITUTIONAL: Denies fever, chills, or sweats. EYES: reports right eye, redness, swelling and discharge. Denies vision change. ENT: Denies rhinorrhea, congestion, sore throat, or otalgia. CARDIOVASCULAR: Denies chest pain, palpitations, or edema. RESPIRATORY: Denies cough or dyspnea. GASTROINTESTINAL: Denies abdominal pain, nausea, vomiting, or diarrhea. GENITOURINARY: Denies dysuria or hematuria. SKIN: Denies rash or itching. MUSCULOSKELETAL: Denies back pain, joint pain, or myalgia. NEUROLOGIC: Denies headache, numbness, or weakness. PSYCHIATRIC: Denies anxiety or depression. All other systems reviewed are negative, except as documented in HPI. [facility] Past Medical History Medical History Anxiety Depression Hepatitis C Substance abuse Surgical History Surgical History H/O exploratory laparotomy Hx of tonsillectomy Family History Family History Father Hypertension Mother Hx of psoriatic arthritis Cardiomyopathy Other Diabetes mellitus Social History Social History Smoking status: Current every day smoker Tobacco type: cigarettes Alcohol intake: former Substance use: former Substance use type: heroin and methamphetamine Last use: clean for over 2 years Living arrangements: with family Gender identity (if verbalized by the patient): Female Comments At time of signature, agree with nursing past medical, surgical, social and family history. There is no relevant family history pertinent to the presenting complaint. Exam Narrative: GENERAL: This is a well-nourished, well-developed patient, in no apparent distress. HEAD: normocephalic, atraumatic. EYES: PERRL. sclera and conjunctiva R eye erythematous, purulent drainage and yellowish tearing. swollen conjunctivae. L eye normal. Eyelids normal. EARS: External ears normal NOSE: External nose normal NECK: Neck supple, non-tender without lymphadenopathy, masses or thyromegaly. CARDIOVASCULAR: Regular rate SKIN: warm, Dry, intact with no suspicious lesions or rash, good texture and turgor. NEURO: awake, alert, and oriented to person,
== END 2023-01-21 16:21 | disposition home or self-care (01) ==
PROVIDERS: Emergency Provider Nurse Practitioner Family
DX: H10.31 Unspecified acute conjunctivitis, right eye (principal); F17.210 Nicotine dependence, cigarettes, uncomplicated
CPT/HCPCS: 99213; G0463

== ENCOUNTER 2024-03-08 13:37 | Emergency (ER) | payer OTHER, SELFPAY ==
--- NOTE | ~2024-03-08 | CT_ITS ---
EXAMINATION: CT soft tissue neck w con DATE: 03/08/2024 18:19 INDICATION: Throat/neck pain TECHNIQUE: Computed tomography (CT) of the neck was performed with 75 mL Omnipaque-350 intravenous co ntrast. Automated exposure control and iterative reconstruction technique were employed. The dose-nitesh gth product was 629.17 mGy-cm. COMPARISON: X-rays soft tissue neck 05/04/2011 FINDINGS: The thyroid gland is unremarkable. The submandibular and parotid glands are symmetric. There is n o cervical lymphadenopathy. There are no masses identified. The superior mediastinum is unremarka ble. The airway is unremarkable. Parapharyngeal and pre-glottic fat planes are preserved. Amalia l enhancing neck vessels. The orbits are unremarkable. Large left inferior maxillary retention cys t/polyp. Small retention cyst/polyp versus lobular collection of secretions in the right maxillary si nus near the ostiomeatal unit. 3 mm right middle lobe nodule. There is cervical spondylosis. IMPRESSION: 3 mm right middle lobe pulmonary nodule, likely granuloma. If the patient is at high risk, consider o ptional low-dose noncontrast CT of the chest in 12 months. Maxillary sinus disease. Otherwise unremarkable CT soft tissue neck findings. Reviewed, dictated and finalized at location [facility] [employer] IMPRESSION: 3 mm right middle lobe pulmonary nodule, likely granuloma. If the patient is at high risk, consider optional low-dose noncontrast CT of the chest in 12 months . Maxillary sinus disease. Otherwise unremarkable CT soft tissue neck findings.
[2024-03-08 13:46] VITALS: BP 138/93; PULSE 119; RESP 17; TEMP 36.4; O2SAT 100
--- NOTE | 2024-03-08 16:51 | PC.NURSE ---
Attempted IV on patient X2 with no success. Will have another RN attempt.
[2024-03-08 16:52] LABS: Pregnancy On Board Control Positive; Urine Pregnancy Test Negative
[2024-03-08 16:58] LABS: Estimated CRCL calculation 97 ml/min; Estimated Glomerular Filt Rate > 60
[2024-03-08 17:05] VITALS: BP 141/85; PULSE 93; RESP 20; TEMP 36.4; O2SAT 100
[2024-03-08 18:56] VITALS: BP 142/105; PULSE 102; RESP 20; TEMP 36.4; O2SAT 100
--- NOTE | 2024-03-08 19:11 | ED_ITS ---
HPI - General Adult General Chief complaint: Dental/Oral Stated complaint: left neck swelling, sores in throat [id number] Time Seen by Provider: 03/08/24 15:26 History of Present Illness HPI narrative: Patient is a 33-year-old female who presents ER with sore throat. Ongoing for 2 weeks. No specific swelling. Has a white spot neck or throat. Mild sinus congestion. Reports some crackling in her ears as well. No vomiting. Does not have a PCP. Related Data Home Medications ?Medication ?Instructions ?Recorded ?Confirmed ?Last Taken ?Type sulfamethoxazole 800 1 tablet PO BID 01/21/23 01/21/23 Unknown History mg-trimethoprim 160 mg tablet Allergies Allergy/AdvReac Type Severity Reaction Status Date / Time adhesive Allergy Intermediate Blister Verified 03/08/24 13:52 ampicillin Allergy Intermediate Hives Verified 03/08/24 13:52 erythromycin base Allergy Intermediate Hives Verified 03/08/24 13:52 Penicillins Allergy Intermediate Rash Verified 03/08/24 13:52 amoxicillin (From Augmentin) Allergy Mild Diarrhea Verified 03/08/24 13:52 clavulanic acid (From Allergy Mild Diarrhea Verified 03/08/24 13:52 Augmentin) HYDROMORPHONE HCL Allergy Unknown Other Uncoded 03/08/24 13:52 Review of Systems 2 Review of Systems: All systems reviewed & are unremarkable except as noted in HPI and below Constitutional: Constitutional: Reports no additional constitutional complaints ENT: Reports system reviewed and no additional complaints, except as documented Cardiovascular: Cardiovascular: Reports no additional cardiovascular complaints Respiratory: Respiratory: Reports no additional respiratory complaints PMFSH Past Medical History Medical History Anxiety Depression Hepatitis C Substance abuse Surgical History Surgical History H/O exploratory laparotomy Hx of tonsillectomy Family History Family History Father Hypertension Mother Hx of psoriatic arthritis Cardiomyopathy Other Diabetes mellitus Social History Social History Smoking status: Current every day smoker Tobacco type: cigarettes Alcohol intake: former Substance use: former Substance use type: heroin and methamphetamine Last use: clean for over 2 years Living arrangements: with family Gender identity (if verbalized by the patient): Female Exam 2 Narrative: GENERAL: Well-appearing, well-nourished, and in no acute distress. HEAD: Normocephalic, atraumatic. ENT: Mucous membranes moist. NECK: Supple. CHEST: Clear to auscultation. No respiratory distress. HEART: Regular rate and rhythm. Normal peripheral pulses. EXTREMITIES: Normal range of motion. No edema. SKIN: Warm, dry, no rash. NEURO: Alert and oriented x3. PSYCH: Normal mood and affect. Course Course Emergency Course: Patient educated on imaging results. Will give the name of the on-call PCP. She will need follow-up CT to re-evaluate the lung nodule. No issues within the soft tissue neck/throat. She does have sinus disease. Vital Signs Vital signs: Vital Signs Temperature 97.6 F 03/08/24 13:46 Pulse Rate 119 H 03/08/24 13:46 Respiratory Rate 03/08/24 13:46 Blood Pressure 138/93 H 03/08/24 13:46 Pulse Oximetry 100 03/08/24 13:46 Oxygen Delivery Room Air 03/08/24 13:46 Temperature 97.5 F L 03/08/24 18:56 Pulse Rate 102 H 03/08/24 18:56 Respiratory Rate 03/08/24 18:56 Blood Pressure 142/105 H 03/08/24 18:56 Pulse Oximetry 100 03/08/24 18:56 Oxygen Delivery Room Air 03/08/24 13:46 Medical Decision Making Vital Signs Vital Signs: Vital Signs Temperature 97.6 F 03/08/24 13:46 Pulse Rate 119 H 03/08/24 13:46 Respiratory Rate 03/08/24 13:46 Blood Pressure 138/93 H 03/08/24 13:46 Pulse Oximetry 100 03/08/24 13:46 Oxygen Delivery Room Air 03/08/24 13:46 Temperature 97.5 F L 03/08/24 18:56 Pulse Rate 102 H 03/08/24 18:56 Respiratory Rate 03/08/24 18:56 Blood Pressure 142/105 H 03/08/24 18:56 Pulse Oximetry 100 03/08/24 18:56 Oxygen Delivery Room Air 03/08/24 13:46 Lab Data 03/08/24 16:39 Labs: Lab Results 03/08/24 Range/Units 16:39 Creatinine 0.90 (0.7-1.0) mg/dL Estim Creat Clear Calc 97 ml/min Estimated GFR > 60 (59 - ) Urine Test Negative Imaging Data Radiologist's impression: ITS Impressions Soft Tissue Neck CT 03/08/24 18:33 IMPRESSION: 3 mm right middle lobe pulmonary nodule, likely granuloma. If the patient is at high risk, consider optional low-dose noncontrast CT of the chest in 12 months. Maxillary sinus disease. Otherwise unremarkable CT soft tissue neck findings. Discharge Plan Discharge Clinical Impression: Incidental lung nodule, Sinusitis Patient Disposition: Home, Self-Care Condition: Stable Instructions: Sinusitis (ED), Pulmonary Nodules (ED) Additional Instructions: Please return to the emergency department if you develop severe and persistent chest pain, difficulty breathing, dizziness, leg swelling or if you are coughing up blood as these can be signs of a medical emergency. Please call your doctor for a follow up appointment to determine the need for further testing. Patient Language: [place] Prescriptions: New fluticasone propionate [24 Hour Allergy Relief] 50 mcg/actuation spray,suspension 1 spray intranasal BID Qty: 16 0RF Rx Instructions: administer into each nostril cetirizine [Zyrtec] 10 mg tablet 10 mg PO DAILY Qty: 20 0RF No Action cefpodoxime 200 mg tablet 200 mg PO BID 7 Days Qty: 14 0RF Rx Instructions: must administer with a meal/food prednisone 20 mg tablet 40 mg PO DAILY 5 Days Qty: 10 0RF ofloxacin 0.3 % drops See Rx Instructions .ROUTE .COMPLEX Qty: 10 0RF Rx Instructions: put 1-2 drps into affected eye(s) every 2-4 h x 2 days, then 1-2 drps 4 times/day days 3-7 sulfamethoxazole-trimethoprim 800-160 mg tablet 1 tablet PO BID Follow-up/Referrals: PHYSICIAN,SUPER[employer] [Primary Care Provider] - Ruddy Piña MD [Physician] - 1 Week Stand Alone Forms: Work/School Release IP
--- OUTSIDE RECORDS SUMMARY | 2024-03-14 06:58 | XMS_ITS | Clinical Summary ---
Author Organization [facility] Address [address] [place] [address] Care Team Providers Care Billet Driller Name Role Phone Unknown, Notinfile Primary Care Provider Unavail able Allergies Active Allergy Reactions Criticality Noted Date Comments Adhesive Other (See comments) Low 10/18/2018 blisters Amoxicillin Hives Medium 02/01/2017 Ampicillin Hives Medium 02/01/2017 Dairy - All Forms And Ingredients Stomach upset Low 02/01/2017 Pt cannot tolerate milk; pt stated can eat cheese Lactose Diarrhea,Vomiting Low 10/18/2018 Penicillins Hives Medium 02/01/2017 Medications No known medications Active Problems Problem Noted Date Diagnosed Date Chronic hepatitis C without hepatic coma (CMS/HC C) 10/18/2018 Overview (02/11/2021): 12/25/18 Fibroscan CAP 355, E 5.3 kPa gneotype 3 b Opioid withdrawal 02/06/2017 Surgical History Surgery Date Site/Laterality Comments EXPLORATORY LAPAROTOMY Bilateral Ovaries TONSILLECTOMY/ADENOIDECTOMY 02/20/1989 - 03/22/1989 Bil[place]ata sosa Medical History Medical History Date Comments Hypotension Family History Medical History Relation Name Comments Alcohol abuse Father's Brother Diabetes Father's Brother Memory loss Father's Brother Alcohol abuse Father's Sister Memory loss Father's Sister defects Maternal Grandfather defects Maternal Grandmother Early Mother defects Mother's Brother defects Mother's Sister Relation Name Status Comments Father's Brother Father's Sister Maternal Grandfather Maternal Grandmother Mother Mother's Brother Mother's Sister Social History Tobacco Use Types Packs/Day Years Used Date Smoking Tobacco: Heavy Smoker Cigarettes 2 21 Smokeless Tobacco: Never Tobacco Cessation:Ready to Q uit: No; Counseling Given: Yes Alcohol Use Standard Drinks/Week Comments No 0 (1 standard drink = 0.6 oz pur e alcohol) Personal Safety Answer Date Recorded Getting School Help Needed Not on file 04/16 Comments No Sex and Gender Information Value Date Recorded Sex Assigned at Not on file Legal Sex Female 4:59 AM MEDICAL OFFICE COORDINATOR Gender Identity Not on file Sexual Orientation Not on file Obstetrics History Last Filed Vital Signs Vital Sign Reading Time Taken Comments Blood Pressure 126/74 02/11/2021 7:57 PM MEDICAL OFFICE COORDINATOR Pulse 83 02/11/2021 7:57 PM MEDICAL OFFICE COORDINATOR Temperature 36.9 ??C (98.5 ??F) 02/11/2021 4:46 PM CS T Respiratory Rate 16 02/11/2021 7:57 PM MEDICAL OFFICE COORDINATOR Oxygen Saturation 100% 02/11/2021 7:57 PM MEDICAL OFFICE COORDINATOR Inhaled Oxygen Concentration - - Weight 94.5 kg (208 lb 5.4 oz) 02/11/2021 4:46 P M MEDICAL OFFICE COORDINATOR Height 175.3 cm (5' 9 ) 02/11/2021 4:46 PM MEDICAL OFFICE COORDINATOR Body Mass Index 30.77 02/11/2021 4:46 PM MEDICAL OFFICE COORDINATOR Plan of Treatment Not on file Insurance Advance Directives For more information, please contact: [phone] * Full Code (Latest Code Status on File) Date Activated Date Inactivated Comments 02/01/2017 6:04 PM 02/04/2017 11:00 AM Care Teams Billet Driller Relationship Specialty Start Date End Date Unknown, Notinfile PCP - General 01/31/17
--- OUTSIDE RECORDS SUMMARY | 2024-03-14 06:58 | XMS_ITS | Patient Health Summary ---
Author Organization [facility] Address [address] [place] [address] Care Team Providers Care Powder Worker Name Role Phone Dinora Josué Salazar APRN-OUTSIDE UPHOLSTERER Primary Care Provider Note from [facility],non-owned Affiliates and Associated Physician Practices is amultiple site organization consisting of ambulatory clinics and hospital sitesin [place], [place], [place] and [place]. This disclosure is being madepursuant to the Care Everywhere program and may not contain all information available regarding this patient. Last updated 17.[facility] Allergies * Adhesive Sensitivity(Other) * Amoxicillin(Rash) -Medium Criticality * Ampicillin(Rash) -Medium Criticality * Augmentin(Diarrhea,Vomiting) * Erythromycin(Eye Itching) * Lactose(Diarrhea,Vomiting) Medications * Be aware that medications may not be up to date on this document. Alwaysverify current medications with the patient. * naltrexone (VIVITROL) injection Inject 380 mg into muscle * raNITIdine (ZANTAC) 300 MG tablet Take 300 mg by mouth nightly as needed * atomoxetine (STRATTERA) 40 MG capsule Take 40 mg by mouth 2 times daily * gabapentin (NEURONTIN) 600 MG tablet Take 600 mg by mouth 3 times daily * albuterol HFA (PROVENTIL;VENTOLIN;PROAIR) 108 (90 Base) MCG/ACT inhaler (Started 12/17/2018) INL 1 TO 2 PFS PO Q 4 H PRF SOB * fluticasone propionate (FLONASE) 50 MCG/ACT nasal spray(Started 12/17/2018) once daily as needed * montelukast (SINGULAIR) 10 MG tablet(Started 12/17/2018) once daily as needed * predniSONE (Deltasone) 20 MG tablet Take 1 (one) tablet by mouth once daily Active Problems Problem Noted Date Diagnosed Date Cellulitis of right orbital region 01/25/2023 Vision changes 01/25/2023 Pain around right eye 01/25/2023 Chronic hepatitis C without hepatic coma 019 Social History Tobacco Use Types Packs/Day Years Used Date Smoking Tobacco: Every Day Cigarettes Smokeless Tobacco: Never Comments:also vapes Alcohol Use Standard Drinks/Week Comments Not Currently 0 (1 standard drink = 0.6 oz pur e alcohol) Sex and Gender Information Value Date Recorded Sex Assigned at Female 01/24/2023 9:13 PM FINANCIAL SERVICES SPECIALIST Gender Identity Female 01/24/2023 9:13 PM FINANCIAL SERVICES SPECIALIST Sexual Orientation Straight 01/24/2023 9: 13 PM FINANCIAL SERVICES SPECIALIST Last Filed Vital Signs Vital Sign Reading Time Taken Comments Blood Pressure 141/73 01/25/2023 8:01 AM FINANCIAL SERVICES SPECIALIST Pulse 83 01/25/2023 8:01 AM FINANCIAL SERVICES SPECIALIST Temperature 36.3 ??C (97.4 ??F) 01/25/2023 8:01 AM CS T Respiratory Rate 12 01/25/2023 8:01 AM FINANCIAL SERVICES SPECIALIST Oxygen Saturation 99% 01/25/2023 8:01 AM FINANCIAL SERVICES SPECIALIST Inhaled Oxygen Concentration - - Weight 104.3 kg (230 lb) 01/24/2023 6:56 PM FINANCIAL SERVICES SPECIALIST Height 177.8 cm (5' 10 ) 01/24/2023 6:56 PM FINANCIAL SERVICES SPECIALIST Body Mass Index 33 01/24/2023 6:56 PM FINANCIAL SERVICES SPECIALIST Procedures * CT FACIAL BONES W CONTRAST(Performed 01/25/2023) Performed for Cellulitis of right orbital region * CULTURE BLOOD(Performed 01/24/2023) * LACTIC ACID BLOOD REFLEX TO REPEAT(Performed 01/24/2023) * HCG BETA BLOOD QUANTITATIVE(Performed 01/24/2023) * COMPREHENSIVE METABOLIC PANEL(Performed 01/24/2023) * CBC W AUTO DIFFERENTIAL(Performed 01/24/2023) * CULTURE BLOOD(Performed 01/24/2023) * HEPATITIS C RNA QUANTITATIVE(Performed 03/05/2019) Performed for Chronic hepatitis C without hepatic coma (HCC) * COMPREHENSIVE METABOLIC PANEL(Performed 03/05/2019) Performed for Chronic hepatitis C without hepatic coma (HCC) * CBC W AUTO DIFFERENTIAL(Performed 03/05/2019) Performed for Chronic hepatitis C without hepatic coma (HCC) * HEPATITIS C RNA QUANTITATIVE(Performed 02/06/2019) Performed for Chronic hepatitis C without hepatic coma (HCC) * COMPREHENSIVE METABOLIC PANEL(Performed 02/06/2019) Performed for Chronic hepatitis C without hepatic coma (HCC) * WI LIVER ELASTOGRAPHY(Performed 12/26/2018) Performed for Chronic hepatitis C without hepatic coma (HCC) * HIV-1 HIV-2 ANTIGEN/ANTIBODY(Performed 12/24/2018) Performed for Chronic hepatitis C without hepatic coma (HCC) * COMPREHENSIVE METABOLIC PANEL(Performed 12/24/2018) Performed for Chronic hepatitis C without hepatic coma (HCC) * HEPATITIS C GENOTYPE(Performed 12/24/2018) Performed for Chronic hepatitis C without hepatic coma (HCC) * HEPATITIS C RNA QUANTITATIVE(Performed 12/24/2018) Performed for Chronic hepatitis C without hepatic coma (HCC) * PT-INR [facility](Performed 10/18/2018) Performed for Chronic hepatitis C without hepatic coma (HCC) * CBC W AUTO DIFFERENTIAL(Performed 10/18/2018) Performed for Chronic hepatitis C without hepatic coma (HCC) Results * CT FACIAL BONES W CONTRAST (01/25/2023 3:17 AM FINANCIAL SERVICES SPECIALIST) Anatomical Region Laterality Modality Head Computed Tomogra phy 01/25/2023 4:06 AM FINANCIAL SERVICES SPECIALIST Impressions 01/25/2023 11:44 AM FINANCIAL SERVICES SPECIALIST IMPRESSION: Right-sided preseptal cellulitis without evidence of post-septal involvement or abnormal fluid collection. Frothy secretions in the left maxillary sinus, clinical correlation for any sinusitis is also recommended. This study was dictated by vice president of engineering Honorio Pereira MD and reviewed and edited by the attending. I, Leonila Taylor MD have personally reviewed and interpreted this examination/study. > Interpreting Provider: Leonila Taylor MD on 01/25/2023 11:44 AM Narrative 01/25/2023 11:44 AM FINANCIAL SERVICES SPECIALIST PROCEDURE: ??CT FACIAL BONES W CONTRAST, DATE/TIME OF EXAM: ??01/25/2023 3:17 AM, LOCATION ??[facility] INDICATION: H05.011: Cellulitis of right orbital region ADDITIONAL CLINICAL INFORMATION: Ordering Provider Reason For Exam: ??r/o R eye orbital ??cellulitis ??vs abscess COMPARISON: None. TECHNIQUE: CT of the maxillofacial bones, orbits, and paranasal sinuses was performed following the uneventful administration of contrast according to standard protocol. FINDINGS: Mild preseptal swelling on right side. No post septal involvement or abnormal fluid collection is present. No retrobulbar fat stranding. There is mild right-sided proptosis compared to the left. The left orbit is normal. There is partial opacification with frothy secretions within left maxillary sinus. Mild to minimal mucosal thickening of right maxillary sinus. The hard palate, mandible, and temporomandibular joints appear normal. No acute facial bone fractures are identified. The mastoid air cells are clear. Periapical lucency involving the right lower last molar tooth left upper first molar right lateral small and right first premolar teeth. No soft tissue abnormality is identified. Procedure Note Leonila Taylor MD - 01/25/2023 PROCEDURE: CT FACIAL BONES W CONTRAST, DATE/TIME OF EXAM: 33:17 AM, LOCATION [facility] INDICATION: H05.011: Cellulitis of right orbital region ADDITIONAL CLINICAL INFORMATION: Ordering Provider Reason For Exam: r/o R eye orbital cellulitis vs abscess COMPARISON: None. TECHNIQUE: CT of the maxillofacial bones, orbits, and paranasal sinuseswas performed following the uneventful administration of contrast accordingto standard protocol. FINDINGS: Mild preseptal swelling on right side. No post septal involvement or abnormal fluid collection is present. No retrobulbar fat stranding.There is mild right-sided proptosis compared to the left. The left orbit is normal. There is partial opacification with frothy secretions withinleft maxillary sinus. Mild to minimal mucosal thickening of right maxillary sinus. The hard palate, mandible, and temporomandibular joints appear normal. No acute facial bone fractures are identified. The mastoid air cells are clear. Periapical lucency involving the right lower last molar tooth left upper first molar right lateral small and right firstpremolar teeth. No soft tissue abnormality is identified. IMPRESSION: Right-sided preseptal cellulitis without evidence of post-septal involvement or abnormal fluid collection. Frothy secretions in the left maxillary sinus, clinical correlation for any sinusitis is also recommended. This study was dictated by vice president of engineering Honorio Pereira MD and reviewed and edited by the attending. ILeonila MD have personally reviewed and interpreted this examination/study. > Interpreting Provider: Leonila Taylor MD on 01/25/2023 11:44 AM Brandan Kaur PA-C CT ORDERABLES * CULTURE BLOOD (01/24/2023 11:45 PM FINANCIAL SERVICES SPECIALIST) Only the most recent of2 resultswithin the time period is included. Pathologist [facility] Culture No growth day 5 SANDIP 01/30/2023 4:31 AM FINANCIAL SERVICES SPECIALIST [facility] Blood PERIPHERAL BLOOD / Unknown Venipuncture / Unknown 01/24/2023 11:45 PM FINANCIAL SERVICES SPECIALIST 01/24/2023 11:52 PM FINANCIAL SERVICES SPECIALIST Brandan Kaur PA-C LAB - MICROBIOLOGY ORDERABLES [facility] [address] [place] [address], [facility] [phone] * LACTIC ACID BLOOD REFLEX TO REPEAT (01/24/2023 11:40 PM FINANCIAL SERVICES SPECIALIST) Lactic Acid-Stat 0.9 <=2.0 mmol/L 01/25/2023 12:23 AM FINANCIAL SERVICES SPECIALIST [facility] Blood BLOOD SPECIMEN / Unknown Venipuncture / Unknown 01/24/2023 11:40 PM FINANCIAL SERVICES SPECIALIST 01/24/2023 11:57 PM FINANCIAL SERVICES SPECIALIST Brandan Kaur PA-C LAB - CHEMISTRY OR DERABLES [facility] [address] [place] [address], [place] [phone] * CBC W AUTO DIFFERENTIAL (01/24/2023 11:40 PM FINANCIAL SERVICES SPECIALIST) Only the most recent of3 resultswithin the time period is included. WBC 5.5 3.5 - 10.5 10? 3 /uL 01/25/2023 12:02 AM [facility] RBC 4.74 3.80 - 5.20 10? 6 /uL 01/25/2023 12:02 AM [facility] Hemoglobin 14.4 12.0 - 15.6 g/dL 01/25/2023 12:02 AM [facility] Hematocrit 41.8 35.0 - 45.0 % 01/25/2023 12:02 AM [facility] MCV 88.2 80.7 - 98.3 fL 01/25/2023 12:02 AM [facility] MCH 30.4 26.7 - 34.0 pg 01/25/2023 12:02 AM [facility] MCHC 34.4 30.8 - 35.9 g/dL 01/25/2023 12:02 AM [facility] RDW-SD 37.8 36.0 - 50.0 fL 01/25/2023 12:02 AM [facility] RDW-CV 11.7 11.2 - 14.8 % 01/25/2023 12:02 AM [facility] Platelet Count 281 150 - 400 10? 3 /uL 01/25/2023 12:02 AM [facility] MPV 10.0 9.4 - 12.9 fL 01/25/2023 12:02 AM [facility] nRBC Absolute 0.00 0 10? 3 /uL 01/25/2023 12:02 AM [facility] nRBC Auto 0.0 0 /100 WBC 01/25/2023 12:02 AM [facility] Neutrophils % 46.5 35.0 - 70.0 % 01/25/2023 12:02 AM [facility] Lymphocytes % 41.3 20.0 - 43.0 % 01/25/2023 12:02 AM [facility] Monocytes % 8.1 5.0 - 13.0 % 01/25/2023 12:02 AM [facility] Eosinophils % 3.5 0.0 - 6.0 % 01/25/2023 12:02 AM [facility] Basophil % 0.4 0.0 - 2.0 % 01/25/2023 12:02 AM [facility] Neutrophils Absolute 2.54 1.60 - 7.00 10? 3 /uL 01/25/2023 12:02 AM [facility] Lymphocyte Absolute 2.25 1.10 - 3.90 10? 3 /uL 01/25/2023 12:02 AM [facility] Monocytes Absolute 0.44 0.26 - 1.07 10? 3 /uL 01/25/2023 12:02 AM [facility] Eosinophils Absolute 0.19 0.00 - 0.47 10? 3 /uL 01/25/2023 12:02 AM [facility] Basophils Absolute 0.02 0.00 - 0.08 10? 3 /uL 01/25/2023 12:02 AM [facility] Immature Granulocytes % 0.2 0.0 - 1.0 % 01/25/2023 12:02 AM [facility] Immature Granulocytes Absolute 0.01 01/25/2023 12:02 AM [facility] Blood BLOOD SPECIMEN / Unknown Venipuncture / Unknown 01/24/2023 11:40 PM FINANCIAL SERVICES SPECIALIST 01/24/2023 11:57 PM FINANCIAL SERVICES SPECIALIST Brandan Kaur PA-C LAB - HEMATOLOGY O RDERABLES [facility] [address] [place] [address], [facility] [phone] * (ABNORMAL) COMPREHENSIVE METABOLIC PANEL (01/24/2023 11:40 PM FINANCIAL SERVICES SPECIALIST) Only the most recent of4 resultswithin the time period is included. BUN 14 7 - 26 mg/dL 01/25/2023 12:30 AM [facility] Creatinine 0.81 0.56 - 0.96 mg/dL 01/25/2023 12:30 AM [facility] Sodium 140 136 - 145 mmol/L 01/25/2023 12:30 AM [facility] Potassium 3.4(L) 3.5 - 4.5 mmol/L 01/25/2023 12:30 AM [facility] Chloride 102 98 - 107 mmol/L 01/25/2023 12:30 AM [facility] CO2 27 22 - 29 mmol/L 01/25/2023 12:30 AM [facility] Glucose 102 70 - 115 mg/dL 01/25/2023 12:30 AM [facility] Calcium 8.8 8.4 - 10.2 mg/dL 01/25/2023 12:30 AM [facility] Protein Total 7.6 6.0 - 8.3 g/dL 01/25/2023 12:30 AM [facility] Albumin 3.9 3.4 - 5.0 g/dL 01/25/2023 12:30 AM [facility] Bilirubin Total 0.3 0.2 - 1.2 mg/dL 01/25/2023 12:30 AM [facility] Alkaline Phosphatase 86 40 - 150 U/L 01/25/2023 12:30 AM [facility] ALT 15 5 - 55 U/L 01/25/2023 12:30 AM [facility] AST 18 5 - 34 U/L 01/25/2023 12:30 AM [facility] Anion Gap 11 6 - 16 01/25/2023 12:30 AM [facility] BUN/Creatinine Ratio 17 7 - 23 01/25/2023 12:30 AM [facility] Osmolality Calculated 291 275 - 295 mOsm/kg 01/25/2023 12:30 AM [facility] Albumin/Globulin Ratio 1.1 1.1 - 2.3 01/25/2023 12:30 AM [facility] eGFR by CKD-EPI >90 >=90 mL/min/1.7 3 m2 01/25/2023 12:30 AM [facility] Blood BLOOD SPECIMEN / Unknown Venipuncture / Unknown 01/24/2023 11:40 PM FINANCIAL SERVICES SPECIALIST 01/24/2023 11:57 PM [facility] Brandan Kaur PA-C LAB - CHEMISTRY OR DERABLES [facility] [address] [place] [address], [facility] [phone] * HCG BETA BLOOD QUANTITATIVE (01/24/2023 11:40 PM FINANCIAL SERVICES SPECIALIST) Pathologist [facility] Beta-hCG Total Quantitative <3 mIU/mL 01/25/2023 12:36 AM FINANCIAL SERVICES SPECIALIST [facility] Comment: HCG Numeric Result Interpretation: ? Non- Females: ? < 5 mIU/mL ? Post-Menopausal Females: ??< 7 mIU/mL ? This assay is cleared for use in the early detection of only. It is not approved for any other uses such as tumor marker screening, tumor marker monitoring, etc. and should not be used for any other purposes. Blood BLOOD SPECIMEN / Unknown Venipuncture / Unknown 01/24/2023 11:40 PM FINANCIAL SERVICES SPECIALIST 01/24/2023 11:57 PM FINANCIAL SERVICES SPECIALIST Brandan Kaur PA-C LAB - CHEMISTRY OR DERABLES [facility] [address] [place] [address], [facility] [phone] * HEPATITIS C RNA QUANTITATIVE (03/05/2019 11:12 AM FINANCIAL SERVICES SPECIALIST) Only the most recent of3 resultswithin the time period is included. [facility] Hepatitis C RNA PCR, Interp Not Detected Not Detected 03/07/2019 3:23 PM FINANCIAL SERVICES SPECIALIST [facility] Blood BLOOD SPECIMEN / Unknown Lab Venipuncture / Unknown 03/05/2019 11:12 AM FINANCIAL SERVICES SPECIALIST 03/05/2019 11:22 AM FINANCIAL SERVICES SPECIALIST Narrative [facility] - 03/07/2019 3:23 PM FINANCIAL SERVICES SPECIALIST The Hepatitis C viral (HCV) RNA analysis utilized a serum sample, real-time reverse polysomnography technician PCR, and is reported as Not Detected, Detected (<12 IU/mL), Quantity (IU/mL) or >100,000,000 IU/mL. The limit of quantitation of the assay is 12 IU/mL (100% of samples with this HCV RNA level were detected). ??The linear range is from 12 IU/mL to 100,000,000 IU/mL. ??Values less than 12 IU/mL are reported as Detected (<12 IU/mL). ??Values greater than 100,000,000 IU/mL are reported as > 100,000,000 IU/mL. The detection/quantitation of HCV RNA in serum is based on the isolation of HCV RNA with reverse polysomnography technician of genomic HCV RNA followed by real-time PCR in the presence of an unrelated RNA internal control. ??The internal control ensures that RNA is isolated, and that no general significant inhibitors of the RT-PCR process are present. The analysis was performed using a U.S. FDA approved test methodology ([employer] Real Time HCV). Crissy Mas CASHIER SELF SERVICE GASOLINE-OUTSIDE UPHOLSTERER LAB - CHEMIS TRY ORDERABLES [facility] [address] [place] [address], [facility] [phone] * WI LIVER ELASTOGRAPHY (12/26/2018 10:12 PM FINANCIAL SERVICES SPECIALIST) Narrative Russell Mcclendon MD - 12/26/2018 10:12 PM FINANCIAL SERVICES SPECIALIST Russell Mcclendon MD ? 12/26/2018 10:12 PM Diagnosis: Hepatitis C RN verified patient not , no implanted devices and NPO for prior 3 hours. Vital signs taken, procedure explained and consent signed. Date of Exam: 12/25/2018 Liver Stiffness: (E, kPa) median: ??5.3 IQR (interquartile range): ?? 0.5 IQR/Median% (ideally < 30%): ??9% CAP (controlled attenuation parameter): ??355 Technical Difficulty: None Ordering Provider: Crissy Mas BOAT CAMP OPERATOR Phone Fax Fibroscan interpretation: I have personally reviewed the Fibroscan report and associated tracings. The calculated liver stiffness (E, kPa) indicates that: The probability of advanced liver fibrosis is: low. The loss of ultrasound signal, (controlled attenuation parameter, CAP [dB/m]), indicates that the probability of hepatic steatosis is: high. Russell Mcclendon MD The following criteria are used to indicate the probability of advanced (stage 3-4) fibrosis: < 7.0 kPa: low 7.0-8.9 kPa: low to moderate 9.0-14.9 kPa: moderate 15-20 kPa: high > 20 kPa: very high Liver stiffness > 20 kPa is also associated with a high probability of complications of portal hypertension including varices and ascites. Liver stiffness > 50 kPa is associated with a high risk of variceal bleeding. Note: Liver stiffness is increased by factors other than fibrosis including passive congestion, infiltrative processes, active alcoholism, biliary obstruction and marked inflammation. The interpretation of the Fibroscan result provided above may not have taken such factors into account. Disease etiology also influences Fibroscan cutoff values for fibrosis stages and the following cutoffs have been proposed (Anita et al, Clin Gastro Hepatol 2015; 13:27-36): Cutoffs for Stage 3 and Stage 4 fibrosis respectively: Hepatitis B: >9 and >11.7 kPa Hepatitis C: >9.5 and >12.5 kPa HCV-HIV: >11 and >14 kPa Cholestatic liver diseases: >10 and >17.9 kPa NAFLD/JOHNSON: >10 and >14 kPa CAP estimates of steatosis: normal <200 dB/m maybe present 200 to 250 dB/m moderate 250-300 dB/m substantial > 300 dB/m (Note that Fibroscan is not a quantitative measure of liver fat and the risk of NAFLD progression is unrelated to the degree of steatosis.) These criteria are estimates and may change as additional supporting data becomes available. [email or web address] Crissy Mas APRN-OUTSIDE UPHOLSTERER PROCEDURE/OK NOR SURGICAL ORDERABLES * HIV-1 HIV-2 ANTIGEN/ANTIBODY (12/24/2018 3:41 PM FINANCIAL SERVICES SPECIALIST) HIV Antigen/Antibod y 1 & 2 Non-reacti ve Non-react manda 12/25/2018 1:41 PM FINANCIAL SERVICES SPECIALIST [facility] Comment: Neither HIV-1 p24 Antigen nor HIV-1/HIV-2 Antibodies are detected. ? Blood BLOOD SPECIMEN / Unknown Lab Venipuncture / Unknown 12/24/2018 3:41 PM FINANCIAL SERVICES SPECIALIST 12/25/2018 12:37 PM FINANCIAL SERVICES SPECIALIST Crissy Mas CASHIER SELF SERVICE GASOLINE-OUTSIDE UPHOLSTERER LAB - HEMATO LOGY ORDERABLES [address] [phone] * HEPATITIS C GENOTYPE (12/24/2018 3:41 PM FINANCIAL SERVICES SPECIALIST) Hepatitis C Genotype 3a 12/29/2018 12:21 PM FINANCIAL SERVICES SPECIALIST [facility] ([facility]) Comment: INTERPRETIVE INFORMATION: ??Hepatitis C Genotyping Hepatitis C Viral RNA is tested using reverse polysomnography technician polymerase chain reaction (RT-PCR) to amplify a specific portion of the 5' untranslated region (5' UTR) of the viral genome. The amplified nucleic acid is sequenced bi-directionally using dye-terminator chemistry ([employer]). Sequencing data is compared to a database of characterized sequences. Isolates of hepatitis C virus are grouped into six major genotypes (1-6). These genotypes are subtyped according to sequence characteristics. Due to high conservation of the 5' un-translated region of the HCV genome, this test has limitations in differentiating subtype 1a from 1b. Therefore, these subtypes will be reported as 1a or 1b. In rare instances, Type 6 virus may be misclassified as Type 1. Test developed and characteristics determined by [facility]. See Compliance Statement B: [employer]/ Performed by [facility], [address] [place] [address] [email or web address], Alvaro Saba MD, Lab. Director Blood BLOOD SPECIMEN / Unknown Lab Venipuncture / Unknown 12/24/2018 3:41 PM FINANCIAL SERVICES SPECIALIST 12/24/2018 3:54 PM FINANCIAL SERVICES SPECIALIST Crissy Mas CASHIER SELF SERVICE GASOLINE-OUTSIDE UPHOLSTERER LAB - CHEMIS TRY ORDERABLES [facility] ([facility]) [address] [place] [address], [facility] * PT-INR [facility] (10/18/2018 2:02 PM CDT) PT 12.1 12.1 - 14.8 Seconds 10/18/2018 4:02 PM CDT [facility] INR 0.9 See Comment 10/18/2018 4:02 PM CDT [facility] Comment: The suggested therapeutic range for standard coumadin (warfarin) therapy is an INR of 2.0-3.0. For high-risk patients (Mechanical Mitral Valve Prosthesis, etc.), the suggested prophylactic therapeutic range is an INR of 2.5-3.5. Blood BLOOD SPECIMEN / Unknown Lab Venipuncture / Unknown 10/18/2018 2:02 PM CDT 10/18/2018 3:28 PM CDT Crissy MCKEON LAB - COAGUL ATION ORDERABLES [address] [phone] Care Teams Powder Worker Relationship Specialty Start Date End Date Josué Farias APRN-CNP PCP - General Nurse Practitioner Family 08/21/18
--- OUTSIDE RECORDS SUMMARY | 2024-03-14 06:58 | XMS_ITS | Encounter Summary ---
Author Organization [facility] Address [address] [place] [address] Care Team Providers Care Clinical Documentation Specialist Name Role Phone HadleypierreradhaJosué Martin DUARTEN-WAREHOUSE GUARD Primary Care Provider Encounter Details Date Type Department Care Team (Late st Contact Info) Description 01/25/2023 Ophth Exam [facility] - Ophthalmology [address] [place] [id number] Austin Doan MD [address] [facility] [place] [id number] Social History Tobacco Use Types Packs/Day Years Used Date Smoking Tobacco: Every Day Cigarettes Smokeless Tobacco: Never Comments:also vapes Alcohol Use Standard Drinks/Week Comments Not Currently 0 (1 standard drink = 0.6 oz pur e alcohol) Sex and Gender Information Value Date Recorded Sex Assigned at Female 01/24/2023 9:13 PM LABOR CONTRACT ANALYST Gender Identity Female 01/24/2023 9:13 PM LABOR CONTRACT ANALYST Sexual Orientation Straight 01/24/2023 9 :13 PM LABOR CONTRACT ANALYST documented as of this encounter Plan of Treatment Not on file documented as of this encounter Goals Goal Patient Goal Type Associated Problems Recent Progress Patient-Stated? Author Medication Management General On track( 020 12:44 PM LABOR CONTRACT ANALYST) Leelee Balbuena, RN Note: Expected end date: ongoing Interventions: Take all medications as prescribed documented as of this encounter Visit Diagnoses Not on filedocumented in this encounter Care Teams Clinical Documentation Specialist Relationship Specialty Start Date End Date Josué Farias APRN-WAREHOUSE GUARD PCP - General Nurse Practitioner Family 08/21/18 documented as of this encounter
--- OUTSIDE RECORDS SUMMARY | 2024-03-14 06:58 | XMS_ITS | Referral Summary ---
Author Organization [facility] Address [address] [place] [address] Care Team Providers Care Oral And Maxillofacial Surgeon Name Role Phone Unknown, Notinfile Primary Care [...] kPa gneotype 3 b Opioid withdrawal 02/06/2017 Social History Tobacco Use Types Packs/Day Years [...] on file Legal Sex Female 4:59 AM REVOLVING INVENTORY CLERK Gender Identity Not on file Sexual Orientation Not on file Last Filed Vital Signs Vital Sign Reading Time Taken Comments Blood Pressure 126/74 02/11/2021 7:57 PM REVOLVING INVENTORY CLERK Pulse 83 02/11/2021 7:57 PM REVOLVING INVENTORY CLERK Temperature 36.9 ??C (98.5 ??F) 02/11/2021 4:46 PM CS T Respiratory Rate 16 02/11/2021 7:57 PM REVOLVING INVENTORY CLERK Oxygen Saturation 100% 02/11/2021 7:57 PM REVOLVING INVENTORY CLERK Inhaled Oxygen Concentration - - Weight 94.5 kg (208 lb 5.4 oz) 02/11/2021 4:46 P M REVOLVING INVENTORY CLERK Height 175.3 cm (5' 9 ) 02/11/2021 4:46 PM REVOLVING INVENTORY CLERK Body Mass Index 30.77 02/11/2021 4:46 PM REVOLVING INVENTORY CLERK Plan of Treatment Not on file Insurance [facility] Advance Directives For more information, please contact: [phone] * Full Code (Latest Code Status on File) Date Activated Date Inactivated Comments 02/01/2017 6:04 PM 02/04/2017 11:00 AM Care Teams Oral And Maxillofacial Surgeon Relationship Specialty Start Date End Date Unknown, Notinfile PCP - General 01/31/17
--- OUTSIDE RECORDS SUMMARY | 2024-03-14 06:58 | XMS_ITS | Clinical Summary ---
Author Organization [facility] Address [address] [place] [address] Care Team Providers Care Open Cut Examiner Name Role Phone Dinora Josué Salazar APRN-LABORER DEMOLITION Primary Care Provider Source Comments [facility] Affiliates and Associated Physician Practices is amultiple site organization consisting of ambulatory clinics and hospital sitesin [place], [place], [place] and [place]. This disclosure is being madepursuant to the Care Everywhere program and may not contain all information available regarding this patient. Last updated 17.[facility] Allergies Active Allergy Reactions Criticality Noted Date Comments Adhesive Sensitivity Other 10/18/2018 blisters Amoxicillin Rash Medium 10/18/2018 Ampicillin Rash Medium 10/18/2018 Augmentin Diarrhea,Vomiting 10/18/2018 Erythromycin Eye Itching 01/24/2023 Lactose Diarrhea,Vomiting 10/18/2018 Medications * Be aware that medications may not be up to date on this document. Alwaysverify current medications with the patient. Medication Sig Dispensed Refills Start Date End Date Status naltrexone (VIVITROL) injection Inject 380 mg into muscle Active raNITIdine (ZANTAC) 300 MG tablet Take 300 mg by mouth nightly as needed Active atomoxetine (STRATTERA) 40 MG capsule Take 40 mg by mouth 2 times daily Active gabapentin (NEURONTIN) 600 MG tablet Take 600 mg by mouth 3 times daily Active albuterol HFA (PROVENTIL;VENTOLIN;UT OAIR) 108 (90 Base) MCG/ACT inhaler INL 1 TO 2 PFS PO Q 4 H PRF SOB 0 12/17/2018 Active fluticasone propionate (FLONASE) 50 MCG/ACT nasal spray once daily as needed 0 12/17/2018 Active montelukast (SINGULAIR) 10 MG tablet once daily as needed 0 12/17/2018 Active predniSONE (Deltasone) 20 MG tablet Take 1 (one) tablet by mouth once daily Active Active Problems Problem Noted Date Diagnosed Date Cellulitis of right orbital region 01/25/2023 Vision changes 01/25/2023 Pain around right eye 01/25/2023 Chronic hepatitis C without hepatic coma 019 Overview (01/07/2019): 12/25/18 Fibroscan CAP 355, E 5.3 kPa gneotype 3 b Family History Medical History Relation Name Comments Alcohol abuse Father Alcohol abuse Paternal Grandfather Alcohol abuse Paternal Uncle 1 Hepatitis Paternal Uncle 2 probable- p t thinks he took interferon Relation Name Status Comments Father Paternal Grandfather Paternal Uncle 1 Paternal Uncle 2 Social History Tobacco Use Types Packs/Day Years Used Date Smoking Tobacco: Every Day Cigarettes Smokeless Tobacco: Never Comments:also vapes Alcohol Use Standard Drinks/Week Comments Not Currently 0 (1 standard drink = 0.6 oz pur e alcohol) Sex and Gender Information Value Date Recorded Sex Assigned at Female 01/24/2023 9:13 PM MOTOR AND GENERATOR BRUSH MAKER Gender Identity Female 01/24/2023 9:13 PM MOTOR AND GENERATOR BRUSH MAKER Sexual Orientation Straight 01/24/2023 9: 13 PM MOTOR AND GENERATOR BRUSH MAKER Last Filed Vital Signs Vital Sign Reading Time Taken Comments Blood Pressure 141/73 01/25/2023 8:01 AM MOTOR AND GENERATOR BRUSH MAKER Pulse 83 01/25/2023 8:01 AM MOTOR AND GENERATOR BRUSH MAKER Temperature 36.3 ??C (97.4 ??F) 01/25/2023 8:01 AM CS T Respiratory Rate 12 01/25/2023 8:01 AM MOTOR AND GENERATOR BRUSH MAKER Oxygen Saturation 99% 01/25/2023 8:01 AM MOTOR AND GENERATOR BRUSH MAKER Inhaled Oxygen Concentration - - Weight 104.3 kg (230 lb) 01/24/2023 6:56 PM MOTOR AND GENERATOR BRUSH MAKER Height 177.8 cm (5' 10 ) 01/24/2023 6:56 PM MOTOR AND GENERATOR BRUSH MAKER Body Mass Index 33 01/24/2023 6:56 PM MOTOR AND GENERATOR BRUSH MAKER Plan of Treatment Health Maintenance Due Date Last Done Comments LIPID TESTING 1982 MAMMOGRAM 1982 PAP SMEAR 1982 DTAP/TDAP/TD VACCINES (1 - Tdap) 2001 HEPATITIS B VACCINE (1 of 3 - 19+ 3-dose series) 2001 PNEUMOCOCCAL VACCINE (1 of 2 - PCV) 2001 COVID-19 VACCINE (1 - season) 2023 INFLUENZA VACCINE (#1) 2023 DEPRESSION SCREENING 02/21/2024 ZOSTER VACCINE (1 of 2) 2032 HIV SCREENING Completed 12/24/2018 HEPATITIS C SCREENING Completed 03/05/2019 , 03/05/2019, 03/05/2019, Additional history exists HIB VACCINE Aged Out No longer eligi ble based on patient's age to complete this topic HPV VACCINE Aged Out No longer eligi ble based on patient's age to complete this topic MENINGOCOCCAL (Group B) VACCINE Aged Out No longer eligible based on patient's age to complete this topic MENINGOCOCCAL VACCINE Aged Out No wilma franklin eligible based on patient's age to complete this topic Goals Goal Patient Goal Type Associated Problems Recent Progress Patient-Stated? Author Medication Management General On track( 020 12:44 PM MOTOR AND GENERATOR BRUSH MAKER) Leelee Balbuena, RN Note: Expected end date: ongoing Interventions: Take all medications as prescribed Procedures Procedure Name Priority Date/Time Associated Diagnosis Comments HEPATITIS C RNA QUANTITATIVE Routine 03/05/2019 11:12 AM MOTOR AND GENERATOR BRUSH MAKER Chronic hepatitis C without hepatic coma (HCC) HIV-1 HIV-2 ANTIGEN/ANTIBODY Routine 12/24/2018 3:41 PM MOTOR AND GENERATOR BRUSH MAKER Chronic hepatitis C without hepatic coma (HCC) from Last 3 Months or Most Recently Relevant to Health Maintenance Results * HEPATITIS C RNA QUANTITATIVE (03/05/2019 11:12 AM MOTOR AND GENERATOR BRUSH MAKER) Hepatitis C RNA PCR, Interp Not Detected Not Detected 03/07/2019 3:23 PM MOTOR AND GENERATOR BRUSH MAKER [facility] Blood BLOOD SPECIMEN / Unknown Lab Venipuncture / Unknown 03/05/2019 11:12 AM MOTOR AND GENERATOR BRUSH MAKER 03/05/2019 11:22 AM MOTOR AND GENERATOR BRUSH MAKER Narrative [facility] - 03/07/2019 3:23 PM MOTOR AND GENERATOR BRUSH MAKER The Hepatitis C viral (HCV) RNA analysis utilized a serum sample, real-time reverse intensive care anaesthetist PCR, and is reported as Not Detected, [...] the isolation of HCV RNA with reverse intensive care anaesthetist of genomic HCV RNA followed by real-time PCR in the presence of an unrelated RNA internal control. ??The internal control ensures that RNA is isolated, and that no general significant inhibitors of the RT-PCR process are present. The analysis was performed using a U.S. FDA approved test methodology ([employer] Real Time HCV). Crissy [facility]KE[facility] - CHEMIS TRY ORDERABLES [facility] [address] [place], [place] [address], [facility] [phone] * HIV-1 HIV-2 ANTIGEN/ANTIBODY (12/24/2018 3:41 PM MOTOR AND GENERATOR BRUSH MAKER) HIV Antigen/Antibod y 1 & 2 Non-reacti ve Non-react manda 12/25/2018 1:41 PM MOTOR AND GENERATOR BRUSH MAKER [facility] Comment: Neither HIV-1 p24 Antigen nor HIV-1/HIV-2 Antibodies are detected. ? Blood BLOOD SPECIMEN / Unknown Lab Venipuncture / Unknown 12/24/2018 3:41 PM MOTOR AND GENERATOR BRUSH MAKER 12/25/2018 12:37 PM MOTOR AND GENERATOR BRUSH MAKER Crissy M Mas PRODUCT DEVELOPMENT ENGINEER-LABORER DEMOLITION LAB - HEMATO LOGY ORDERABLES [facility] [address] [phone] from Last 3 Months or Most Recently Relevant to Health Maintenance Advance Directives * Full Code (Latest Code Status on File) Date Activated Date Inactivated Comments 01/25/2023 8:37 AM 01/25/2023 11:17 AM Care Teams Open Cut Examiner Relationship Specialty Start Date End Date Josué Farias APRN-CNP PCP - General Nurse Practitioner Family 08/21/18
--- OUTSIDE RECORDS SUMMARY | 2024-03-14 06:58 | XMS_ITS | Continuity of Care Document ---
Author Organization [facility] Address [address] [place] [address] Phone Care Team Providers Care Search Engine Optimizer Name Role Phone Alysia Duque MD Unavailable Unavailabl e Advance Directives Directive Yes / No Effective Date File Name No Information Encounters Encounter Description Practice Location Reason(s) For Visit Diagnoses Date Provider Providers Copied on Encounter [facility], [address], [place], [place], [address], tel:[phone] [place] ACUTE PHARYNGITIS [facility]. [address], [place], [address]. tel:[phone] [facility], [address], [place], [place], [address], tel:[phone] [place] ACUTE SINUSITIS NOSOTITIS MEDIA NOS Conversion Doctor. [address] [place] [address], [address], . [facility], [address], [place], [place], [address], tel:[phone] [place] DEPRESSIVE DISORDER NEC [employer] [address], [place], [address]. tel:[phone] Family History Family Member Type Diagnosis Age At Onset No Information Payers Payer name Insurance type Covered alliance party ID Authoriza tion(s) No Information Social [...]
--- OUTSIDE RECORDS SUMMARY | 2024-03-14 06:58 | XMS_ITS | Referral Summary ---
Author Organization [facility] Address [address] [place] [address] Care Team Providers Care As400 Programmer Name Role Phone Dinora Josué Salazar APRN-DIRECTOR OF COUNSELING Primary Care Provider Source Comments [facility],non-[facility] Affiliates and Associated Physician Practices is amultiple site organization consisting of ambulatory clinics and hospital sitesin [place], [place], [place] and [place]. This disclosure is being madepursuant to the Care Everywhere program and may not contain all information available regarding this patient. Last updated 17.[facility] Allergies Active Allergy Reactions Criticality Noted Date [...] mouth 3 times daily Active albuterol HFA (PROVENTIL;VENTOLIN;VT OAIR) 108 (90 Base) MCG/ACT inhaler INL [...] 355, E 5.3 kPa gneotype 3 b Social History Tobacco Use Types Packs/Day Years Used Date Smoking Tobacco: Every Day Cigarettes Smokeless Tobacco: Never Comments:also vapes Alcohol Use Standard Drinks/Week Comments Not Currently 0 (1 standard drink = 0.6 oz pur e alcohol) Sex and Gender Information Value Date Recorded Sex Assigned at Female 01/24/2023 9:13 PM CUSTOMER ENGAGEMENT ANALYST Gender Identity Female 01/24/2023 9:13 PM CUSTOMER ENGAGEMENT ANALYST Sexual Orientation Straight 01/24/2023 9: 13 PM CUSTOMER ENGAGEMENT ANALYST Last Filed Vital Signs Vital Sign Reading Time Taken Comments Blood Pressure 141/73 01/25/2023 8:01 AM CUSTOMER ENGAGEMENT ANALYST Pulse 83 01/25/2023 8:01 AM CUSTOMER ENGAGEMENT ANALYST Temperature 36.3 ??C (97.4 ??F) 01/25/2023 8:01 AM CS T Respiratory Rate 12 01/25/2023 8:01 AM CUSTOMER ENGAGEMENT ANALYST Oxygen Saturation 99% 01/25/2023 8:01 AM CUSTOMER ENGAGEMENT ANALYST Inhaled Oxygen Concentration - - Weight 104.3 kg (230 lb) 01/24/2023 6:56 PM CUSTOMER ENGAGEMENT ANALYST Height 177.8 cm (5' 10 ) 01/24/2023 6:56 PM CUSTOMER ENGAGEMENT ANALYST Body Mass Index 33 01/24/2023 6:56 PM CUSTOMER ENGAGEMENT ANALYST Plan of Treatment Not on file Goals Goal Patient Goal Type Associated Problems Recent Progress Patient-Stated? Author Medication Management General On track( 020 12:44 PM CUSTOMER ENGAGEMENT ANALYST) Leelee Balbuena, RN Note: Expected end date: ongoing Interventions: Take all medications as prescribed Procedures Procedure Name Priority Date/Time Associated Diagnosis Comments HEPATITIS C RNA QUANTITATIVE Routine 03/05/2019 11:12 AM CUSTOMER ENGAGEMENT ANALYST Chronic hepatitis C without hepatic coma (HCC) HIV-1 HIV-2 ANTIGEN/ANTIBODY Routine 12/24/2018 3:41 PM CUSTOMER ENGAGEMENT ANALYST Chronic hepatitis C without hepatic coma (HCC) from Last 3 Months or Most Recently Relevant to Health Maintenance Results * HEPATITIS C RNA QUANTITATIVE (03/05/2019 11:12 AM CUSTOMER ENGAGEMENT ANALYST) Hepatitis C RNA PCR, Interp Not Detected Not Detected 03/07/2019 3:23 PM [facility] Blood BLOOD SPECIMEN / Unknown Lab Venipuncture / Unknown 03/05/2019 11:12 AM CUSTOMER ENGAGEMENT ANALYST 03/05/2019 11:22 AM CUSTOMER ENGAGEMENT ANALYST Narrative [facility] - 03/07/2019 3:23 PM CUSTOMER ENGAGEMENT ANALYST The Hepatitis C viral (HCV) RNA analysis utilized a serum sample, real-time reverse research chemical engineer PCR, and is reported as Not Detected, [...] the isolation of HCV RNA with reverse research chemical engineer of genomic HCV RNA followed by real-time PCR in the presence of an unrelated RNA internal control. ??The internal control ensures that RNA is isolated, and that no general significant inhibitors of the RT-PCR process are present. The analysis was performed using a U.S. FDA approved test methodology ([employer] Real Time HCV). Crissy Mas REAL ESTATE ACCOUNTANT-DIRECTOR OF COUNSELING LAB - CHEMIS TRY ORDERABLES [facility] [address] [place] [address], [facility] [phone] * HIV-1 HIV-2 ANTIGEN/ANTIBODY (12/24/2018 3:41 PM CUSTOMER ENGAGEMENT ANALYST) HIV Antigen/Antibod y 1 & 2 Non-reacti ve Non-react manda 12/25/2018 1:41 PM CUSTOMER ENGAGEMENT ANALYST [facility] Comment: Neither HIV-1 p24 Antigen nor HIV-1/HIV-2 Antibodies are detected. ? Blood BLOOD SPECIMEN / Unknown Lab Venipuncture / Unknown 12/24/2018 3:41 PM CUSTOMER ENGAGEMENT ANALYST 12/25/2018 12:37 PM CUSTOMER ENGAGEMENT ANALYST Crissy Mas REAL ESTATE ACCOUNTANT-DIRECTOR OF COUNSELING LAB - HEMATO LOGY ORDERABLES [facility] [address] [phone] from Last 3 Months or Most Recently Relevant to Health Maintenance Advance Directives * Full Code (Latest Code Status on File) Date Activated Date Inactivated Comments 01/25/2023 8:37 AM 01/25/2023 11:17 AM Care Teams As400 Programmer Relationship Specialty Start Date End Date Josué Farais APRN-DIRECTOR OF COUNSELING PCP - General Nurse Practitioner Family 08/21/18
--- OUTSIDE RECORDS SUMMARY | 2024-03-14 07:17 | XMS_ITS | Continuity of Care Document ---
Author Organization [facility] Address [address] [place] [address] Phone Care Team Providers Care Spa Consultant Name Role Phone Alysia Duque MD Unavailable Unavailabl e Advance Directives Directive Yes / No Effective Date File Name No Information Encounters Encounter Description Practice Location Reason(s) For Visit Diagnoses Date Provider Providers Copied on Encounter [facility], [address], [place], [place], [address], tel:[phone] [facility] AC[facility]ARYNGIT[facility] [address], [place], [id number]. tel:[phone] [facility], [address], [place], [place], [address], tel:[phone] [facility] ACUTE SINUSITIS NOSOTITIS MEDIA NOS Conversion Doctor. [address] [place] [address], [address], . [facility], [address], [place], [place], [address], tel:[phone] [facility] DEPRESSIVE DISORDER NEC [facility]. [address], [place], [address]. tel:[phone] Family History Family Member Type Diagnosis Age At Onset No Information Payers Payer name Insurance type Covered republican ID Authoriza tion(s) No Information Social History [...]
== END 2024-03-08 19:32 | disposition home or self-care (01) ==
PROVIDERS: Emergency Provider Emergency Medicine
DX: J32.0 Chronic maxillary sinusitis (principal); R91.1 Solitary pulmonary nodule; F17.210 Nicotine dependence, cigarettes, uncomplicated; Z86.19 Personal history of other infectious and parasitic diseases
CPT/HCPCS: 36415; 70491; 81025; 82565; 99284; Q9967

== ENCOUNTER 2024-05-20 10:34 | Emergency (ER) | payer OTHER, SELFPAY ==
[2024-05-20 10:45] VITALS: BP 127/79; PULSE 96; RESP 18; TEMP 36.8; O2SAT 100
--- NOTE | 2024-05-20 11:10 | ED_ITS ---
HPI - General Adult General Chief complaint: Neck Pain/Injury Stated complaint: pain right side of face,neck pain,PRINCE Time Seen by Provider: 05/20/24 11:10 Source: patient Mode of arrival: ambulatory Limitations: no limitations History of Present Illness HPI narrative: 43-year-old female presents with complaint of right-sided neck pain radiating into right shoulder. Patient states yesterday she was riding and car and turned her head to the right to talk to chief cook. Mobile excruciating pain to right side of neck that travel down right arm. Since then she has had right-sided neck pain, stiffness and headache. Has not taking any [id number] medications to treat her symptoms. Patient ambulatory with steady gait. No weakness to right upper extremity. All systems reviewed and negative except as noted above. Related Data Home Medications ?Medication ?Instructions ?Recorded ?Confirmed ?Last Taken ?Type atomoxetine 100 mg capsule mg PO 05/20/24 Unknown History (Strattera) bupropion HCl 300 mg 24 hr tablet, mg PO 05/20/24 Unknown History extended release fluticasone propionate 50 intranasal 05/20/24 Unknown History mcg/actuation nasal spray,suspension pantoprazole 40 mg tablet,delayed mg PO 05/20/24 Unknown History release Allergies Allergy/AdvReac Type Severity Reaction Status Date / Time adhesive Allergy Intermediate Blister Verified 05/20/24 11:00 ampicillin Allergy Intermediate Hives Verified 05/20/24 11:00 codeine Allergy Intermediate Rash Verified 05/20/24 11:00 erythromycin base Allergy Intermediate Hives Verified 05/20/24 11:00 Penicillins Allergy Intermediate Rash Verified 05/20/24 11:00 amoxicillin (From Augmentin) Allergy Mild Diarrhea Verified 05/20/24 11:00 clavulanic acid (From Allergy Mild Diarrhea Verified 05/20/24 11:00 Augmentin) HYDROMORPHONE HCL Allergy Unknown Other Uncoded 05/20/24 11:00 Review of Systems Review of Systems: CONSTITUTIONAL: Denies fever, chills, or sweats. EYES: Denies visual changes, redness, or discharge. ENT: Denies rhinorrhea, congestion, sore throat, or otalgia. CARDIOVASCULAR: Denies chest pain, palpitations, or edema. RESPIRATORY: Denies cough or dyspnea. GASTROINTESTINAL: Denies abdominal pain, nausea, vomiting, or diarrhea. GENITOURINARY: Denies dysuria or hematuria. SKIN: Denies rash or itching. MUSCULOSKELETAL: Denies back pain, joint pain, or myalgia. Reports right-sided neck pain and stiffness. NEUROLOGIC: Denies headache, numbness, or weakness. PSYCHIATRIC: Denies anxiety or depression. All other systems reviewed are negative, except as documented in HPI. 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 There is no relevant family history pertinent to the presenting complaint. Exam Narrative: GENERAL: This is a well-nourished, well-developed patient, in no apparent distress. HEAD: normocephalic, atraumatic. EYES: PERRL. Sclera clear/white. Vision is grossly intact. EARS: External ears normal, auditory canals clear and without drainage, TMs normal without perforation. Hearing grossly intact. NOSE: External nose normal with no obvious nasal discharge, nares without redness, no rhinorrhea. THROAT: Mucous membranes moist, posterior pharynx clear. NECK: Neck supple, Right-sided trapezius tenderness, spasm. decreased range of motion, flexion and rotation to right side. No swelling or deformity. No midline tenderness. No lymphadenopathy, masses or thyromegaly. CARDIOVASCULAR: Regular rate and rhythm without murmurs, gallops, or rubs. RESPIRATORY: Clear to auscultation. Breath sounds equal bilaterally. No wheezes, rales, or rhonchi. SKIN: warm, Dry, intact with no suspicious lesions or rash, good texture and turgor. NEURO: awake, alert, and oriented to person, place and time. There were no obvious focal neurologic abnormalities. EXTREMITIES: No joint tenderness, effusion, or edema noted. Course Course Level of Care: Express Care Visit Vital Signs Vital signs: Vital Signs Temperature 36.8 C 05/20/24 10:45 Pulse Rate 96 05/20/24 10:45 Respiratory Rate 18 05/20/24 10:45 Blood Pressure 127/79 05/20/24 10:45 Pulse Oximetry 100 05/20/24 10:45 Oxygen Delivery Room Air 05/20/24 10:45 Temperature 36.8 C 05/20/24 10:45 Pulse Rate 96 05/20/24 10:45 Respiratory Rate 18 05/20/24 10:45 Blood Pressure 127/79 05/20/24 10:45 Pulse Oximetry 05/20/24 10:45 Oxygen Delivery Room Air 05/20/24 10:45 Reviewed Medical Decision Making MDM Narrative Medical decision making narrative: x-ray not indicated today due to no midline tenderness. Patient's tenderness is muscular. Will treat with ibuprofen, muscle relaxant. Recommend follow-up with primary care physician as needed. No neuro deficits at time of discharge. Please be advised this is a medical document. It is intended for [id number] communication. It is written in medical language and may contain unfamiliar abbreviations or verbiage. Medical documents are intended to carry relevant information, facts as evident, and the clinical opinion of the practitioner at the time of the encounter. This report may have been done utilizing a voice recognition system. Attempts have been made to correct errors. However, there may be uncorrected grammatical, spelling, and recognition errors present. The file time of this note does not necessarily represent the time of service. Vital Signs Vital Signs: Vital Signs Temperature 36.8 C 05/20/24 10:45 Pulse Rate 96 05/20/24 10:45 Respiratory Rate 18 05/20/24 10:45 Blood Pressure 127/79 05/20/24 10:45 Pulse Oximetry 100 05/20/24 10:45 Oxygen Delivery Room Air 05/20/24 10:45 Temperature 36.8 C 05/20/24 10:45 Pulse Rate 96 05/20/24 10:45 Respiratory Rate 18 05/20/24 10:45 Blood Pressure 127/79 05/20/24 10:45 Pulse Oximetry 100 05/20/24 10:45 Oxygen Delivery Room Air 05/20/24 10:45 Discharge Plan Discharge Clinical Impression: Strain of muscle, fascia and tendon at neck level, initial encounter Patient Disposition: Home, Self-Care Condition: Stable Instructions: Cervical Strain (ED) Additional Instructions: Take medications as prescribed. Alternate between ice and heat. Methocarbamol is a muscle relaxant may cause drowsiness. Do not drive while taking this medication. Follow-up with your primary care physician if pain is not improving. Patient Language: Ghanaian Prescriptions: New ibuprofen 800 mg tablet 800 mg PO TID PRN (Reason: pain) Qty: 30 0RF methocarbamol 750 mg tablet 750 mg PO Q8H PRN (Reason: muscle pain/spasm) Qty: 30 0RF methylprednisolone [Medrol (Mychal)] 4 mg tablets,dose pack See Rx Instructions PO .COMPLEX Qty: 21 0RF Rx Instructions: orally per package directions No Action pantoprazole 40 mg tablet,delayed release (DR/EC) PO fluticasone propionate 50 mcg/actuation spray,suspension INTRANASAL bupropion HCl 300 mg tablet extended release 24 hr PO atomoxetine [Strattera] 100 mg capsule PO cetirizine [Zyrtec] 10 mg tablet 10 mg PO DAILY Qty: 20 0RF Follow-up/Referrals: Yared Saxena MD [Primary Care Provider] - Time of Disposition: 11:22
== END 2024-05-20 11:27 | disposition home or self-care (01) ==
PROVIDERS: Emergency Provider Nurse Practitioner Family; PCP Internal Medicine
DX: S16.1XXA Strain of muscle, fascia and tendon at neck level, initial encounter (principal); X58.XXXA Exposure to other specified factors, initial encounter; Z86.19 Personal history of other infectious and parasitic diseases
CPT/HCPCS: 99213; G0463

== ENCOUNTER 2024-05-24 16:02 | Outpatient (CLI) | payer OTHER, SELFPAY ==
--- NOTE | ~2024-05-24 | CT_ITS ---
CLINICAL INDICATION: Chronic cough and lung nodule COMPARISON: None. TECHNIQUE: Multiple contiguous axial images of the chest was performed without the administration of intravenous contrast. This CT examination was performed utilizing dose reduction techniques. DLP: 453 mGy-cm FINDINGS/OBSERVATIONS: LUN.3 mm nodule is identified within left upper lobe (axial series, image 28). Pleural-based 4.3 mm nodule within the right middle lobe (axial series, image 47). 4 mm nodule within the right upper lobe (axial series, image 63) The remainder of the lungs are otherwise clear. HEART: The heart is of normal size, without pericardial effusion. MEDIASTINUM: No pathologically enlarged or morphologically suspicious lymph nodes are identified within the medias tinum, bilateral axilla, within the soft tissues of the anterior chest wall. SOFT TISSUES OF THE CHEST: Unremarkable. BONES OF THE CHEST: No acute fracture. No lytic or blastic lesions are identified. UPPER ABDOMEN: Small hiatal hernia. The gallbladder is decompressed, and otherwise unremarkable. IMPRESSION: Three pulmonary nodules, for which follow-up as per Fleischner guidelines is recommended. Guidelines recommend(s) optional CT at 12 months. Examination is otherwise unremarkable. Reviewed, dictated and finalized at location A. IMPRESSION: Three pulmonary nodules, for which follow-up as per Fleischner guidelines is re commended. Guidelines recommend(s) optional CT at 12 months. Examination is otherwise unremarkable.
--- OUTSIDE RECORDS SUMMARY | 2024-05-24 16:08 | XMS_ITS | Referral Summary ---
Author Organization [facility] Address [address] [place] [address] Care Team Providers Care Dry Wall Applicator Name Role Phone Unknown, Notinfile Primary Care [...] Date Chronic hepatitis C without hepatic coma 019 Overview (02/11/2021): 12/25/18 Fibroscan CAP 355, E [...] on file Legal Sex Female 4:59 AM CLINICAL RESOURCE COORDINATOR Gender Identity Not on file Sexual Orientation Not on file Last Filed Vital Signs Vital Sign Reading Time Taken Comments Blood Pressure 126/74 02/11/2021 7:57 PM CLINICAL RESOURCE COORDINATOR Pulse 83 02/11/2021 7:57 PM CLINICAL RESOURCE COORDINATOR Temperature 36.9 C (98.5 F) 02/11/2021 4:46 PM CLINICAL RESOURCE COORDINATOR Respiratory Rate 16 02/11/2021 7:57 PM CLINICAL RESOURCE COORDINATOR Oxygen Saturation 100% 02/11/2021 7:57 PM CLINICAL RESOURCE COORDINATOR Inhaled Oxygen Concentration - - Weight 94.5 kg (208 lb 5.4 oz) 02/11/2021 4:46 P M CLINICAL RESOURCE COORDINATOR Height 175.3 cm (5' 9 ) 02/11/2021 4:46 PM CLINICAL RESOURCE COORDINATOR Body Mass Index 30.77 02/11/2021 4:46 PM CLINICAL RESOURCE COORDINATOR Plan of Treatment Not on file Insurance [facility] Advance Directives For more information, please contact: [phone] * Full Code (Latest Code Status on File) Date Activated Date Inactivated Comments 02/01/2017 6:04 PM 02/04/2017 11:00 AM Care Teams Dry Wall Applicator Relationship Specialty Start Date End Date Unknown, Notinfile PCP - General 01/31/17
--- OUTSIDE RECORDS SUMMARY | 2024-05-24 16:08 | XMS_ITS | Continuity of Care Document ---
Author Organization [facility] Address [address] [place] [address] Phone Care Team Providers Care Worship Pastor Name Role Phone Alysia Duque MD Unavailable Unavailabl e Advance Directives Directive Yes / No Effective Date File Name No Information Encounters Encounter Description Practice Location Reason(s) For Visit Diagnoses Date Provider Providers Copied on Encounter [facility], [address], [place], [place], [id number], tel:[phone] [place] [facility] PHARYNGITIS [facility]. [address] [place], [place], [id number]. tel:[phone] [facility], [address], [place], [place], [address], tel:[phone] [place] ACUTE SINUSITIS NOSOTITIS [facility]. [address] [place] [address], [address], . [facility], [address], [place], [place], [address], tel:[phone] [place] DEPRESSIVE DISORDER [facility] [address] [place], [place], [id number]. tel:[phone] Family History Family Member Type Diagnosis Age [...]
--- OUTSIDE RECORDS SUMMARY | 2024-05-24 16:08 | XMS_ITS | Encounter Summary ---
Author Organization [facility] Address [address] [place] [address] Care Team Providers Care Floorworker Name Role Phone Josué Farias Primary Care Provider Yared Saxena MD Primary Care Provider [phone] Encounter Details Date Type Department Care Team (Late st Contact Info) Description 01/25/2023 Ophth Exam [facility] - Ophthalmology [address] [place] [id number] Austin Doan MD [address] [facility] [place] [id number] Social History Tobacco Use Types Packs/Day Years Used Date Smoking Tobacco: Every Day Cigarettes Smokeless Tobacco: Never Comments:also vapes Alcohol Use Standard Drinks/Week Comments Not Currently 0 (1 standard drink = 0.6 oz pur e alcohol) Sex and Gender Information Value Date Recorded Sex Assigned at Female 01/24/2023 9:13 PM SEWING ROOM SUPERVISOR Gender Identity Female 01/24/2023 9:13 PM SEWING ROOM SUPERVISOR Sexual Orientation Straight 01/24/2023 9: 13 PM SEWING ROOM SUPERVISOR documented as of this encounter Plan of Treatment Not on file documented as of this encounter Goals Goal Patient Goal Type Associated Problems Recent Progress Patient-Stated? Author Medication Management General On track( 020 12:44 PM SEWING ROOM SUPERVISOR) Leelee Balbuena, RN Note: Expected end date: ongoing Interventions: Take all medications as prescribed documented as of this encounter Visit Diagnoses Not on filedocumented in this encounter Care Teams Floorworker Relationship Specialty Start Date End Date Josué Farias APRN-RESTAURANT SHIFT SUPERVISOR PCP - General Nurse Practitioner Family 08/21/1803/28 Yared Saxena MD [address] [facility] [address] [place] [address] PCP - General Internal Medicine 03/29/24 documented as of this encounter
--- OUTSIDE RECORDS SUMMARY | 2024-05-24 16:08 | XMS_ITS | Clinical Summary ---
Author Organization [facility] Address [address] [place] [address] Care Team Providers Care Bakery And Deli Sales Manager Name Role Phone Unknown, Notinfile Primary Care [...] LAPAROTOMY Bilateral Ovaries TONSILLECTOMY/ADENOIDECTOMY 02/20/1989 - 03/22/1989 Bilat eral Medical History Medical History Date Comments Hypotension [...] on file Legal Sex Female 4:59 AM HOME MISSION WORKER Gender Identity Not on file Sexual Orientation Not on file Obstetrics History Last Filed Vital Signs Vital Sign Reading Time Taken Comments Blood Pressure 126/74 02/11/2021 7:57 PM HOME MISSION WORKER Pulse 83 02/11/2021 7:57 PM HOME MISSION WORKER Temperature 36.9 C (98.5 F) 02/11/2021 4:46 PM HOME MISSION WORKER Respiratory Rate 16 02/11/2021 7:57 PM HOME MISSION WORKER Oxygen Saturation 100% 02/11/2021 7:57 PM HOME MISSION WORKER Inhaled Oxygen Concentration - - Weight 94.5 kg (208 lb 5.4 oz) 02/11/2021 4:46 P M HOME MISSION WORKER Height 175.3 cm (5' 9 ) 02/11/2021 4:46 PM HOME MISSION WORKER Body Mass Index 30.77 02/11/2021 4:46 PM HOME MISSION WORKER Plan of Treatment Not on file Insurance [facility] Advance Directives For more information, please contact: [phone] * Full Code (Latest Code Status on File) Date Activated Date Inactivated Comments 02/01/2017 6:04 PM 02/04/2017 11:00 AM Care Teams Bakery And Deli Sales Manager Relationship Specialty Start Date End Date Unknown, Notinfile PCP - General 01/31/17
--- OUTSIDE RECORDS SUMMARY | 2024-05-24 16:08 | XMS_ITS | Clinical Summary ---
Author Organization [facility] [address] Address [address] [place] [address] Care Team Providers Care Soda Column Operator Name Role Phone Yared Saxena MD Primary Care Provider [phone] Source Comments [facility] [address],non-owned Affiliates and Associated Physician Practices is amultiple site organization consisting of ambulatory clinics and hospital sitesin [place], [place] and [place]. This disclosure is being madepursuant to the Care Everywhere program and may not contain all information available regarding this patient. Last updated 17.[facility] [address] Allergies Active Allergy Reactions Criticality Noted Date [...] mouth 3 times daily Active albuterol HFA (PROVENTIL;VENTOLIN;NV OAIR) 108 (90 Base) MCG/ACT inhaler INL [...] 355, E 5.3 kPa gneotype 3 b Encounters Date Type Department Care Team Description 03/29/2024 9:15 AM ZONE MAINTENANCE TECHNICIAN - 03/29/2024 11:59 PM ZONE MAINTENANCE TECHNICIAN Hospital Encounter [facility] - Cardiology [address] [place] [address] Yared Saxena MD Discharge Disposition: Home or Self Care 03/29/2024 9:00 AM ZONE MAINTENANCE TECHNICIAN - 03/29/2024 9:14 AM ZONE MAINTENANCE TECHNICIAN Hospital Encounter [facility] - Laboratory [address] [place] [address] Yared Saxena MD Discharge Disposition: Home or Self Care from Last 3 Months Family History Medical History Relation Name Comments [...] Sex Assigned at Female 01/24/2023 9:13 PM ZONE MAINTENANCE TECHNICIAN Gender Identity Female 01/24/2023 9:13 PM ZONE MAINTENANCE TECHNICIAN Sexual Orientation Straight 01/24/2023 9: 13 PM ZONE MAINTENANCE TECHNICIAN Last Filed Vital Signs Vital Sign Reading Time Taken Comments Blood Pressure 141/73 01/25/2023 8:01 AM ZONE MAINTENANCE TECHNICIAN Pulse 83 01/25/2023 8:01 AM ZONE MAINTENANCE TECHNICIAN Temperature 36.3 C (97.4 F) 01/25/2023 8:01 AM ZONE MAINTENANCE TECHNICIAN Respiratory Rate 12 01/25/2023 8:01 AM ZONE MAINTENANCE TECHNICIAN Oxygen Saturation 99% 01/25/2023 8:01 AM ZONE MAINTENANCE TECHNICIAN Inhaled Oxygen Concentration - - Weight 104.3 kg (230 lb) 01/24/2023 6:56 PM ZONE MAINTENANCE TECHNICIAN Height 177.8 cm (5' 10 ) 01/24/2023 6:56 PM ZONE MAINTENANCE TECHNICIAN Body Mass Index 33 01/24/2023 6:56 PM ZONE MAINTENANCE TECHNICIAN Plan of Treatment Health Maintenance Due Date Last Done Comments MAMMOGRAM 1982 PAP SMEAR 1982 DTAP/TDAP/TD VACCINES (1 - Tdap) 2001 HEPATITIS B VACCINE (1 of 3 - 19+ 3-dose series) 2001 PNEUMOCOCCAL VACCINE (1 of 2 - PCV) 2001 COVID-19 VACCINE (1 - season) 2023 DEPRESSION SCREENING 02/21/2024 INFLUENZA VACCINE (Season Ended) 2024 LIPID TESTING 03/29/2029 03/29/2024 ZOSTER VACCINE (1 of 2) 2032 HEPATITIS C SCREENING Completed 03/29/2024 , 03/05/2019, 03/05/2019, Additional history exists HIV SCREENING Completed 03/29/2024, 12/24/2018 HIB VACCINE Aged Out No longer eligi ble based on patient's age to complete this topic HPV VACCINE Aged Out No longer eligi ble based on patient's age to complete this topic MENINGOCOCCAL (Group B) VACCINE SHARED DECISION-MAKING Aged Out No longer eligible based on patient's age to complete this topic MENINGOCOCCAL GROUPS A/C/Y/W VACCINE Aged Out No longer eligible based on patient's age to complete this topic Goals Goal Patient Goal Type Associated Problems Recent Progress Patient-Stated? Author Medication Management General On track( 020 12:44 PM ZONE MAINTENANCE TECHNICIAN) Leelee Balbuena, RN Note: Expected end date: ongoing Interventions: Take all medications as prescribed Procedures Procedure Name Priority Date/Time Associated Diagnosis Comments EKG 12-LEAD Routine 03/29/2024 9:34 AM ZONE MAINTENANCE TECHNICIAN Tachycardia SYPHILIS ANTIBODY CASCADING REFLEX Routine 03/29/2024 9:13 AM ZONE MAINTENANCE TECHNICIAN Contact with or exposure to communicable disease Screening for diabetes mellitus Pain in joint, multiple sites Screening for lipoid disorders HCG URINE QUALITATIVE Routine 03/29/2024 9:13 AM ZONE MAINTENANCE TECHNICIAN Contact with or exposure to communicable disease Screening for diabetes mellitus Pain in joint, multiple sites Screening for lipoid disorders LUI BLOOD SCREEN W/REFLEX TITER Routine 03/29/2024 9:13 AM ZONE MAINTENANCE TECHNICIAN Contact with or exposure to communicable disease Screening for diabetes mellitus Pain in joint, multiple sites Screening for lipoid disorders URINALYSIS REFLEX MICROSCOPIC REFLEX CULTURE Routine 03/29/2024 9:13 AM ZONE MAINTENANCE TECHNICIAN Contact with or exposure to communicable disease Screening for diabetes mellitus Pain in joint, multiple sites Screening for lipoid disorders QUANTIFERON-TB GOLD PLUS 4-TUBE Routine 03/29/2024 9:13 AM ZONE MAINTENANCE TECHNICIAN Contact with or exposure to communicable disease Screening for diabetes mellitus Pain in joint, multiple sites Screening for lipoid disorders TSH REFLEX FREE T4 Routine 03/29/2024 9: 13 AM ZONE MAINTENANCE TECHNICIAN Contact with or exposure to communicable disease Screening for diabetes mellitus Pain in joint, multiple sites Screening for lipoid disorders COMPREHENSIVE METABOLIC PANEL Routine 03/29/2024 9:13 AM ZONE MAINTENANCE TECHNICIAN Contact with or exposure to communicable disease Screening for diabetes mellitus Pain in joint, multiple sites Screening for lipoid disorders LIPID PROFILE Routine 03/29/2024 9:13 AM ZONE MAINTENANCE TECHNICIAN Contact with or exposure to communicable disease Screening for diabetes mellitus Pain in joint, multiple sites Screening for lipoid disorders HEPATITIS C RNA QUANTITATIVE Routine 03/29/2024 9:13 AM ZONE MAINTENANCE TECHNICIAN Contact with or exposure to communicable disease Screening for diabetes mellitus Pain in joint, multiple sites Screening for lipoid disorders C-REACTIVE PROTEIN Routine 03/29/2024 9: 13 AM ZONE MAINTENANCE TECHNICIAN Contact with or exposure to communicable disease Screening for diabetes mellitus Pain in joint, multiple sites Screening for lipoid disorders HEPATITIS B SURFACE ANTIGEN W RFLX CONFIRMATION Routine 03/29/2024 9:13 AM ZONE MAINTENANCE TECHNICIAN Contact with or exposure to communicable disease Screening for diabetes mellitus Pain in joint, multiple sites Screening for lipoid disorders CBC W AUTO DIFFERENTIAL Routine 03/29/2024 9:13 AM ZONE MAINTENANCE TECHNICIAN Contact with or exposure to communicable disease Screening for diabetes mellitus Pain in joint, multiple sites Screening for lipoid disorders HEMOGLOBIN A1C Routine 03/29/2024 9:13 AM ZONE MAINTENANCE TECHNICIAN Contact with or exposure to communicable disease Screening for diabetes mellitus Pain in joint, multiple sites Screening for lipoid disorders HIV-1 HIV-2 ANTIBODY + HIV P24 AG PANEL Routine 03/29/2024 9:13 AM ZONE MAINTENANCE TECHNICIAN Contact with or exposure to communicable disease Screening for diabetes mellitus Pain in joint, multiple sites Screening for lipoid disorders RHEUMATOID FACTOR BLOOD QUANTITATIVE Routine 03/29/2024 9:13 AM ZONE MAINTENANCE TECHNICIAN Contact with or exposure to communicable disease Screening for diabetes mellitus Pain in joint, multiple sites Screening for lipoid disorders from Last 3 Months Results * EKG 12-LEAD (03/29/2024 9:34 AM ZONE MAINTENANCE TECHNICIAN) Ventricular Rate 82 BPM GS[facility] MUSE Atrial Rate 82 BPM [facility] MUSE P-R Interval 140 ms [facility] MUSE QRS Duration ms 84 ms [facility] MUSE Q-T Interval ms 408 ms [facility] MUSE QTC Calculation (Bezet) 476 ms GSAM MUSE Calculated P [place] 74 degrees GS[facility] MUSE Calculated R [place] 48 degrees GS[facility] MUSE Calculated T [place] 24 degrees GSAM MUSE Interpretation EKG Normal sinus rhythm Nonspecific ST abnormality Abnormal ECG No previous ECGs available Confirmed by MD ELINA, DANNY York ([id number]) on 03/29/2024 6:10:32 PM [facility] MUSE 03/29/2024 9:34 AM ZONE MAINTENANCE TECHNICIAN 03/29/2024 6:10 PM ZONE MAINTENANCE TECHNICIAN Yared Saxena MD ECG ORDERABLES Performing Organization Address City/[facility]/ZIP Co de Phone Number [facility] * SYPHILIS ANTIBODY CASCADING REFLEX (03/29/2024 9:13 AM ZONE MAINTENANCE TECHNICIAN) Treponema pallidum Antibody Non Reactive Non Reactive 03/29/2024 11:05 AM ZONE MAINTENANCE TECHNICIAN [facility] Blood BLOOD SPECIMEN / Unknown Venipuncture / Unknown 03/29/2024 9:13 AM ZONE MAINTENANCE TECHNICIAN 03/29/2024 9:27 AM ZONE MAINTENANCE TECHNICIAN Narrative [facility] - 03/29/2024 11:05 AM ZONE MAINTENANCE TECHNICIAN No laboratory evidence of syphilis infection. Note: Circulating antibodies may be low or undetectable in early infection. If recent exposure is suspected, redraw sample in 2-4 weeks and repeat testing. Yared Saxena MD LAB - SEROLOGY ORDER PRINCE Performing Organization Address [facility] Co de Phone Number [facility] [address] * QUANTIFERON-TB GOLD PLUS 4-TUBE (03/29/2024 9:13 AM ZONE MAINTENANCE TECHNICIAN) QuantiFERON Mitogen Minus NIL 9.88 IU/mL 04/01/2024 4:51 AM ZONE MAINTENANCE TECHNICIAN [facility] ([facility]) QuantiFERON Nil Value 0.12 IU/mL 04/01/2024 4:51 AM ZONE MAINTENANCE TECHNICIAN [facility] ([facility]) QuantiFERON Plus TB1 Minus NIL 0.09 <=0.34 IU/mL 04/01/2024 4:51 AM ZONE MAINTENANCE TECHNICIAN [facility] ([facility]) QuantiFERON Plus TB2 Minus NIL 0.03 <=0.34 IU/mL 04/01/2024 4:51 AM ZONE MAINTENANCE TECHNICIAN [facility] ([facility]) QuantiFERON-TB Gold Plus Negative Negative 04/01/2024 4:51 AM ZONE MAINTENANCE TECHNICIAN [facility] ([facility]) Comment: INTERPRETIVE INFORMATION:Quantiferon TB Gold Plus Interferon gamma release is measured for specimens from each of the four collection tubes. A qualitative result (Negative, Positive, or Indeterminate) is based on interpretation of the four values: NIL, MITOGEN minus NIL (MITOGEN-NIL), TB1 minus NIL (TB1-NIL), and TB2 minus NIL (TB2-NIL). The NIL value represents nonspecific reactivity produced by the patient specimen. The MITOGEN-NIL value serves as the positive control for the patient specimen, demonstrating successful lymphocyte activity. The TB1-NIL tube specifically detects CD4+ lymphocyte reactivity, specifically stimulated by the TB1 antigens. The TB2-NIL tube detects both CD4+ and CD8+ lymphocyte reactivity, stimulated by TB2 antigens. An overall Negative result does not completely rule out TB infection. A false-positive result in the absence of other clinical evidence of TB infection is not uncommon. Refer to: Updated Guidelines for Using Interferon Gamma Release Assays to Detect Mycobacterium tuberculosis Infection -- [place], 2010 (http://www.cdc.gov/mmwr/preview/mmwrhtml/tl7553f4.htm), for more information concerning test performance in low-prevalence populations and use in occupational screening. Performed By: [facility] [address] [place] [address] Key Account Director: Aiden Mejia MD, PhD CLIA Number: [id number] Blood BLOOD SPECIMEN / Unknown Venipuncture / Unknown 03/29/2024 9:13 AM ZONE MAINTENANCE TECHNICIAN 03/29/2024 9:28 AM ZONE MAINTENANCE TECHNICIAN Yared Saxena MD LAB - CHEMISTRY JACQUE CAPPS Performing Organization Address [facility]/ZIP Co de Phone Number [facility] ([facility]) [address] [place] [address] * HIV 1 & HIV 2 ANTIBODY (IN HOUSE) (03/29/2024 9:13 AM ZONE MAINTENANCE TECHNICIAN) Pathologist [facility] HIV1/2 Ab + P24 Ag NON-REACTI VE/NEGATIV E NON-REACTI VE/NEGATIV E 03/29/2024 10:32 AM ZONE MAINTENANCE TECHNICIAN [facility] Blood BLOOD SPECIMEN / Unknown Venipuncture / Unknown 03/29/2024 9:13 AM ZONE MAINTENANCE TECHNICIAN 03/29/2024 9:27 AM ZONE MAINTENANCE TECHNICIAN Yared Saxena MD LAB - CHEMISTRY JACQUE CAPPS [facility] [address] * URINALYSIS REFLEX MICROSCOPIC REFLEX CULTURE (03/29/2024 9:13 AM ZONE MAINTENANCE TECHNICIAN) Color UA Yellow Straw, Yellow 03/29/2024 9:37 AM [facility] Clarity UA Clear Clear 03/29/2024 9:37 AM ZONE MAINTENANCE TECHNICIAN AM [facility] Glucose UA Negative Negative 03/29/2024 9:37 AM ZONE MAINTENANCE TECHNICIAN [facility] Bilirubin UA Negative Negative 03/29/2024 9:37 AM ZONE MAINTENANCE TECHNICIAN [facility] Ketone UA Negative Negative 03/29/2024 9:37 AM [facility] Specific Parrott UA 1.013 1.005 - 1.030 03/29/2024 9:37 AM [facility] Blood UA Negative Negative 03/29/2024 9:37 AM [facility] pH UA 6.0 5.0 - 8.0 pH 03/29/2024 9:37 AM [facility] Protein UA Negative Negative 03/29/2024 9:37 AM [facility] Urobilinogen UA Negative Negative, >8.0 mg/dL 03/29/2024 9:37 AM [facility] Nitrite UA Negative Negative 03/29/2024 9:37 AM [facility] Leukocyte UA Negative Negative 03/29/2024 9:37 AM [facility] Urine Microscopy Urine microscopy not indicated 03/29/2024 9:37 AM [facility] Reflex Status Culture not indicated 03/29/2024 9:37 AM [facility] Urine URINE SPECIMEN OBTAINED BY CLEAN CATCH PROCEDURE / Unknown Collection / Unknown 03/29/2024 9:13 AM ZONE MAINTENANCE TECHNICIAN 03/29/2024 9:27 AM ZONE MAINTENANCE TECHNICIAN Narrative AM LABORAT[facility] - 03/29/2024 9:37 AM ZONE MAINTENANCE TECHNICIAN Yared Saxena MD LAB - URINALYSIS ORD ERABLES [facility] [address] * TSH REFLEX FREE T4 (03/29/2024 9:13 AM ZONE MAINTENANCE TECHNICIAN) TSH 1.8691 0.35 - 4.94 uIU/mL 03/29/2024 10:14 AM ZONE MAINTENANCE TECHNICIAN [facility] Comment:TSH Normal, Reflex F ree T4 Not Performed. Blood BLOOD SPECIMEN / Unknown Venipuncture / Unknown 03/29/2024 9:13 AM ZONE MAINTENANCE TECHNICIAN 03/29/2024 9:27 AM ZONE MAINTENANCE TECHNICIAN Yared Saxena MD LAB - CHEMISTRY JACQUE CAPPS [facility] Organization Address City/State/ZIP Co de Phone Number [facility] [address] [place], [place] [address] * HEPATITIS C RNA QUANTITATIVE PCR (03/29/2024 9:13 AM ZONE MAINTENANCE TECHNICIAN) HCV Quant by NAAT (IU/mL) Not Detected IU/mL 03/31/2024 6:55 AM ZONE MAINTENANCE TECHNICIAN [facility] ([facility]) HCV Quant by NAAT (log IU/mL) Not Detected log IU/mL 03/31/2024 6:55 AM ZONE MAINTENANCE TECHNICIAN [facility] ([facility]) HCV Quant by NAAT Interp Not Detected Not Detected 03/31/2024 6:55 AM [facility] ([facility]) Comment: INTERPRETIVE INFORMATION: HCV by Quantitative NAAT The quantitative range of this test is 15-100,000,000 IU/mL (1.18-8.0 log IU/mL). A result of Not Detected does not rule out the presence of inhibitors in the patient specimen or hepatitis C virus RNA concentrations below the level of detection of the test. Care should be taken when interpreting any single viral load determination. This test is intended for use as an aid in the diagnosis of HCV infection in the following populations: individuals with antibody evidence of HCV with evidence of liver disease, individuals suspected to be actively infected with HCV antibody evidence, and individuals at risk for HCV infection with antibodies to HCV. Detection of HCV RNA indicates that the virus is replicating and therefore is evidence of active infection. This test is also intended for use as an aid in the management of patients with an HCV infection undergoing antiviral therapy. The assay can be used to measure HCV RNA levels at baseline, during treatment, at the end of treatment, and at the end of follow-up of treatment to determine sustained or nonsustained viral response. The results must be interpreted within the context of all relevant clinical and laboratory findings. This test should not be used for blood donor screening, associated reentry protocols, or for screening human cells, tissues, and cellular tissue-based products (HCT/P). Performed By: [facility] [address] [place] [address] Key Account Director: Aiden Mejia MD, PhD CLIA Number: [id number] Blood BLOOD SPECIMEN / Unknown Venipuncture / Unknown 03/29/2024 9:13 AM ZONE MAINTENANCE TECHNICIAN 03/29/2024 9:27 AM ZONE MAINTENANCE TECHNICIAN Yared Saxena MD LAB - CHEMISTRY JACQUE CAPPS Performing Organization Address [facility] Co de Phone Number [facility] ([facility]) [address] [place], [place] [address] * HCG URINE QUALITATIVE (03/29/2024 9:13 AM ZONE MAINTENANCE TECHNICIAN) [facility] hCG Qualitative Urine Negative Negative 03/29/2024 9:38 AM ZONE MAINTENANCE TECHNICIAN [facility] Specific [place] UA 1.013 1.005 - 1.030 03/29/2024 9:38 AM ZONE MAINTENANCE TECHNICIAN [facility] Urine URINE / Unknown Collection / Unknown 03/29/2024 9:13 AM ZONE MAINTENANCE TECHNICIAN 03/29/2024 9:27 AM ZONE MAINTENANCE TECHNICIAN Yared Saxena MD LAB - URINALYSIS ORD ERABLES Performing Organization Address [facility] Co de Phone Number [facility] [address] * RHEUMATOID FACTOR BLOOD QUANTITATIVE (03/29/2024 9:13 AM ZONE MAINTENANCE TECHNICIAN) [facility] Rheumatoid Factor Quantitative 21 <30 IU/mL 03/29/2024 9:50 AM ZONE MAINTENANCE TECHNICIAN [facility] Blood BLOOD SPECIMEN / Unknown Venipuncture / Unknown 03/29/2024 9:13 AM ZONE MAINTENANCE TECHNICIAN 03/29/2024 9:27 AM ZONE MAINTENANCE TECHNICIAN Yared Saxena MD LAB - CHEMISTRY JACQUE CAPPS Performing Organization Address [facility] Co de Phone Number [facility] [address] * (ABNORMAL) C-REACTIVE PROTEIN (03/29/2024 9:13 AM ZONE MAINTENANCE TECHNICIAN) C-Reactive Protein 0.74(H) <=0.50 mg/dL 03/29/2024 9:54 AM ZONE MAINTENANCE TECHNICIAN [facility] Blood BLOOD SPECIMEN / Unknown Venipuncture / Unknown 03/29/2024 9:13 AM ZONE MAINTENANCE TECHNICIAN 03/29/2024 9:27 AM ZONE MAINTENANCE TECHNICIAN Yared Saxena MD LAB - CHEMISTRY JACQUE CAPPS Performing Organization Address City/[facility] Co de Phone Number [facility] [address] * LUI BLOOD SCREEN W/REFLEX TITER (03/29/2024 9:13 AM ZONE MAINTENANCE TECHNICIAN) Pathologist [facility] LUI IgG None Detected None Detected 03/31/2024 3:14 AM ZONE MAINTENANCE TECHNICIAN [facility] ([facility]) Comment: If suspicion of connective tissue disease is strong and LUI EIA is negative, consider testing for LUI by IFA ([id number]). INTERPRETIVE INFORMATION: Anti-Nuclear Antibodies (LUI), IgG by JC Antinuclear Antibodies (LUI), IgG by JC: LUI specimens are screened using enzyme-linked immunosorbent assay (JC) methodology. All JC results reported as Detected are further tested by indirect fluorescent assay (IFA) using HEp-2 substrate with an IgG-specific conjugate. The LUI JC screen is designed to detect antibodies against dsDNA, histones, SS-A (Ro), SS-B (La), Ambrose, Ambrose/[employer], Scl-70, Dolores-1, centromeric proteins, other antigens extracted from the HEp-2 cell nucleus. LUI JC assays have been reported to have lower sensitivities than LUI IFA for systemic autoimmune rheumatic diseases (SARD). Negative results do not necessarily rule out SARD. Performed By: [facility] [address] [place] [id number] Key Account Director: Aiden Mejia MD, PhD CLIA Number: [id number] Blood BLOOD SPECIMEN / Unknown Venipuncture / Unknown 03/29/2024 9:13 AM ZONE MAINTENANCE TECHNICIAN 03/29/2024 9:27 AM ZONE MAINTENANCE TECHNICIAN Yared Saxena MD LAB - CHEMISTRY JACQUE CAPPS [facility] ([facility]) [address] [place] [address], [facility] * HEMOGLOBIN A1C (03/29/2024 9:13 AM ZONE MAINTENANCE TECHNICIAN) Hemoglobin A1c 5.3 4.2 - 5.6 % 03/29/2024 10:06 AM [facility] Estimated Average Glucose 105 mg/dL 03/29/2024 10:06 AM [facility] Blood BLOOD SPECIMEN / Unknown Venipuncture / Unknown 03/29/2024 9:13 AM ZONE MAINTENANCE TECHNICIAN 03/29/2024 9:28 AM [facility] Narrative [facility] - 03/29/2024 10:06 AM [facility] HbA1c Interpretation: Normal: < 5.7% Pre-diabetes: 5.7-6.4% Diabetes: Equal to or greater than 6.5% Test results diagnostic of diabetes should be repeated for confirmation. Treatment target values recommended by ADA and other clinical organizations should be used to evaluate metabolic control in patients. This test should not replace glucose testing for patients with Type 1 diabetes, pediatric patients, or women. Falsely low HbA1c results may be observed in patients with clinical conditions that shorten erythrocyte life span or decrease mean erythrocyte age such as the presence of unstable hemoglobin variants, elevated hemoglobin F level or other causes of hemolytic anemia. HbA1c may not accurately reflect glycemic control when clinical conditions that affect erythrocyte survival are present. Severe Iron deficiency anemia may yield falsely high results. Hemoglobin A1c assay should not be used to diagnose or monitor diabetes in patients with malignancy, recent blood transfusion, chronic kidney or liver disease. This method may yield falsely low results when hemoglobin (HbF) exceeds 5% in the specimen. The Mendez Alinity assay for the measurement of HbA1c is a National Glycohemoglobin Standardization Program (NGSP) certified method. Yared Saxena MD LAB - CHEMISTRY JACQUE CAPPS [facility] [address] [place] [address], [facility] * CBC W/ DIFFERENTIAL (03/29/2024 9:13 AM ZONE MAINTENANCE TECHNICIAN) WBC 6.8 4.0 - 10.7 x10E9/L 03/29/2024 9:31 AM [facility] RBC Count 4.55 3.90 - 5.20 x10E12/L 03/29/2024 9:31 AM [facility] Hemoglobin 13.9 11.9 - 15.8 g/dL 03/29/2024 9:31 AM [facility] Hematocrit 40.7 34.8 - 46.1 % 03/29/2024 9:31 AM [facility] MCV 89.5 80.0 - 98.0 fL 03/29/2024 9:31 AM [facility] MCH 30.5 26.7 - 33.6 pg 03/29/2024 9:31 AM [facility] MCHC 34.2 31.7 - 36.3 g/dL 03/29/2024 9:31 AM [facility] RDW-CV 12.0 11.3 - 14.8 % 03/29/2024 9:31 AM [facility] Platelet Count 302 150 - 420 x10E9/L 03/29/2024 9:31 AM [facility] MPV 9.7 7.8 - 11.4 fL 03/29/2024 9:31 AM [facility] Neutrophil % 62.8 41.0 - 74.0 % 03/29/2024 9:31 AM [facility] Lymphocyte % 27.5 17.0 - 47.0 % 03/29/2024 9:31 AM [facility] Monocyte % 6.7 3.0 - 11.0 % 03/29/2024 9:31 AM [facility] Eosinophil % 2.4 0.0 - 7.0 % 03/29/2024 9:31 AM [facility] Basophil % 0.3 0.0 - 1.6 % 03/29/2024 9:31 AM [facility] Immature Granulocytes % 0.3 0.0 - 1.0 % 03/29/2024 9:31 AM [facility] Neutrophil Absolute 4.25 1.60 - 7.50 x10E9/L 03/29/2024 9:31 AM [facility] Lymphocyte Absolute 1.86 1.00 - 4.40 x10E9/L 03/29/2024 9:31 AM [facility] Monocyte Absolute 0.45 0.15 - 1.00 x10E9/L 03/29/2024 9:31 AM [facility] Eosinophil Absolute 0.16 0.00 - 0.60 x10E9/L 03/29/2024 9:31 AM [facility] Basophil Absolute 0.02 0.00 - 0.13 x10E9/L 03/29/2024 9:31 AM [facility] Blood BLOOD SPECIMEN / Unknown Venipuncture / Unknown 03/29/2024 9:13 AM ZONE MAINTENANCE TECHNICIAN 03/29/2024 9:28 AM [facility] Yared Saxena MD LAB - HEMATOLOGY ORD ERABLES [facility] [address], [place] [address]RUST * COMPREHENSIVE METABOLIC PANEL (03/29/2024 9:13 AM [facility]) Glucose 93 70 - 125 mg/dL 03/29/2024 9:54 AM [facility] Sodium 143 136 - 145 mmol/L 03/29/2024 9:54 AM [facility] Potassium 4.3 3.4 - 5.1 mmol/L 03/29/2024 9:54 AM [facility] Chloride 106 98 - 107 mmol/L 03/29/2024 9:54 AM [facility] CO2 28 22 - 29 mmol/L 03/29/2024 9:54 AM [facility] Calcium 9.04 8.4 - 10.2 mg/dL 03/29/2024 9:54 AM [facility] Anion Gap 9 6 - 16 mmol/L 03/29/2024 9:54 AM [facility] BUN 10.9 9.8 - 20.1 mg/dL 03/29/2024 9:54 AM [facility] Creatinine 0.75 0.57 - 1.11 mg/dL 03/29/2024 9:54 AM [facility] Alkaline Phosphatase 87 40 - 150 U/L 03/29/2024 9:54 AM [facility] ALT 31 <=55 U/L 03/29/2024 9:54 AM [facility] AST 32 5 - 34 U/L 03/29/2024 9:54 AM ZONE MAINTENANCE TECHNICIAN [facility] Protein Total 7.0 6.4 - 8.3 gm/dL 03/29/2024 9:54 AM [facility] Albumin 3.5 3.4 - 4.8 gm/dL 03/29/2024 9:54 AM [facility] Globulin Total 3.5 2.6 - 4.0 gm/dL 03/29/2024 9:54 AM [facility] Albumin/Globulin Ratio 1.0 0.9 - 1.6 03/29/2024 9:54 AM [facility] Bilirubin Total 0.3 0.2 - 1.2 mg/dL 03/29/2024 9:54 AM [facility] eGFR >90 >90 mL/min/1.7 3m2 03/29/2024 9:54 AM [facility] Comment:The GFR result was c alculated using the updated CKD-EPI Creatinine Equation (2020). Blood BLOOD SPECIMEN / Unknown Venipuncture / Unknown 03/29/2024 9:13 AM ZONE MAINTENANCE TECHNICIAN 03/29/2024 9:27 AM ZONE MAINTENANCE TECHNICIAN Yared Saxena MD LAB - CHEMISTRY JACQUE CAPPS Performing Organization Address City/[facility] Co de Phone Number [facility] [address] * HEPATITIS B SURFACE ANTIGEN W RFLX CONFIRMATION (03/29/2024 9:13 AM ZONE MAINTENANCE TECHNICIAN) HBsAg Non Reactive Non Reactive 03/29/2024 10:32 AM ZONE MAINTENANCE TECHNICIAN [facility] Blood BLOOD SPECIMEN / Unknown Venipuncture / Unknown 03/29/2024 9:13 AM ZONE MAINTENANCE TECHNICIAN 03/29/2024 9:27 AM ZONE MAINTENANCE TECHNICIAN Yared Saxena MD LAB - CHEMISTRY JACQUE CAPPS Performing Organization Address City/[facility]/ZIP Co de Phone Number [facility] [address] * LIPID PROFILE (03/29/2024 9:13 AM ZONE MAINTENANCE TECHNICIAN) Cholesterol 173 <200 mg/dL 03/29/2024 9:54 AM ZONE MAINTENANCE TECHNICIAN [facility] Triglycerides 83 <150 mg/dL 03/29/2024 9:54 AM [facility] HDL Cholesterol 58 >40 mg/dL 9:54 AM [facility] Chol HDL Ratio 3.0 1.0 - 6.0 03/29/2024 9:54 AM [facility] LDL Calculated 98 65 - 130 mg/dL 03/29/2024 9:54 AM [facility] VLDL Calculated 17 <=30 mg/dL 9:54 AM [facility] Blood BLOOD SPECIMEN / Unknown Venipuncture / Unknown 03/29/2024 9:13 AM ZONE MAINTENANCE TECHNICIAN 03/29/2024 9:27 AM [facility] - 03/29/2024 9:54 AM [facility] Lipid Profile Comment: CHOLESTEROL LEVEL..................CLINICAL INTERPRETATION LESS THAN 200 MG/DL..............................DESIRABLE 200-239 MG/DL..............................BORDERLINE HIGH GREATER THAN 240 MG/DL................................HIGH LDL-CHOLESTEROL LEVEL..............CLINICAL INTERPRETATION LESS THAN 100 MG/DL................................OPTIMAL 100-129 MG/DL.................................NEAR OPTIMAL GREATER THAN 160 MG/DL...........................HIGH RISK HDL RISK LEVEL GREATER THEN 60 MG/DL............................DECREASED 40-60 MG/DL........................................AVERAGE LESS THAN 40 MG/DL...............................INCREASED TRIGLYCERIDE LEVEL..................CLINICAL INTERPRETATION LESS THAN 150 MG/DL...............................DESIRABLE 150-199 MG/DL...............................BORDERLINE HIGH 200-499 MG/DL..........................................HIGH GREATER THAN 500..................................VERY HIGH THE NATIONAL CHOLESTEROL EDUCATION PROGRAM HAS SET THE ABOVE GUIDELINES (REFERANCE VALUES) FOR CHOLESTEROL AND HDL. RISK ASSOCIATED WITH CHOLESTEROL/HDL RATIOS RISK....................MALE RATIO.............FEMALE RATIO 1/2 AVERAGE.................<3.4.......................<3.3 LOW RISK.................... 4.0 ...................... 3.8 AVERAGE..................... 5.0 ...................... 4.5 2X AVERAGE.................. 9.5 ...................... 7.0 3X AVERAGE...................>23........................>11 Yared Saxena MD LAB - CHEMISTRY JACQUE CAPPS [facility] Organization Address City/State/ZIP Co de Phone Number [facility] [address] [place] [address], [facility] from Last 3 Months Advance Directives * Full Code (Latest Code Status on File) Date Activated Date Inactivated Comments 01/25/2023 8:37 AM 01/25/2023 11:17 AM Care Teams Soda Column Operator Relationship Specialty Start Date End Date Yared Saxena MD [address] [id number] PCP - General Internal Medicine 03/29/24
== END 2024-05-24 16:03 | disposition home or self-care (01) ==
PROVIDERS: PCP Internal Medicine; Visit Provider Internal Medicine
DX: R04.0 Epistaxis (principal); R05.3 Chronic cough; R91.1 Solitary pulmonary nodule; R91.8 Other nonspecific abnormal finding of lung field
CPT/HCPCS: 71250

== ENCOUNTER 2024-08-09 10:00 | Emergency (ER) | payer OTHER, SELFPAY ==
[2024-08-09] VITALS (9 sets, daily range): BP systolic 112–148; BP diastolic 60–86; PULSE 79–95; RESP 16–21; TEMP 36.2; O2SAT 97–99
--- NOTE | ~2024-08-09 | XR_ITS ---
XR chest 2V Ordering provider: Mague Dangelo PA-C History: 43 years Female with . sob, COUGH . Comparison: November 22, 2019 FINDINGS: MEDIASTINUM: The cardiac silhouette is not enlarged. LUNGS: No infiltrates, effusions or pneumothorax. OTHER: No free air under the diaphragm. IMPRESSION: No acute cardiopulmonary pathology. Reviewed, dictated and finalized at location A.
--- NOTE | 2024-08-09 11:06 | ECG_ITS ---
Test Date: 2024-08-09 11:27:52 Measurements Intervals [place] Rate: 83 P: 49 HI: 147 QRS: 2 QRSD: 96 T: -5 QT: 384 QTc: 452 Interpretive Statements SINUS RHYTHM VOLTAGE CRITERIA FOR LVH BORDERLINE ST-T WAVE ABNORMALITY- ANTEROLAT/INF LEADS BASELINE ARTIFACT- V1, V6 BORDERLINE ECG No previous ECG available for comparison Electronically Signed On 08-09-2024 11:30:57 CDT by Aaron Suero D.O.
--- NOTE | 2024-08-09 11:29 | ED_ITS ---
HPI - SOB/Dyspnea General Chief Complaint: Shortness of Breath/Dyspnea Stated Complaint: pain in left lung, SOB Time Seen by Provider: 08/09/24 11:06 Source: patient Mode of arrival: ambulatory Limitations: no limitations History of Present Illness HPI Narrative: This is a 43-year-old female that presents emergency department for cold symptoms. Ongoing since yesterday. Reports cough, congestion, shortness of breath. Reports left-sided chest discomfort. She is a current smoker. Denies history of COPD or asthma. Denies fevers. Related Data Home Medications ?Medication ?Instructions ?Recorded ?Confirmed ?Last Taken ?Type atomoxetine 100 mg capsule mg PO 05/20/24 Unknown History (Strattera) bupropion HCl 300 mg 24 hr tablet, mg PO 05/20/24 Unknown History extended release fluticasone propionate 50 intranasal 05/20/24 Unknown History mcg/actuation nasal spray,suspension pantoprazole 40 mg tablet,delayed mg PO 05/20/24 Unknown History release Allergies Allergy/AdvReac Type Severity Reaction Status Date / Time adhesive Allergy Intermediate Blister Verified 08/09/24 10:21 ampicillin Allergy Intermediate Hives Verified 08/09/24 10:21 codeine Allergy Intermediate Rash Verified 08/09/24 10:21 erythromycin base Allergy Intermediate Hives Verified 08/09/24 10:21 Penicillins Allergy Intermediate Rash Verified 08/09/24 10:21 amoxicillin (From Augmentin) Allergy Mild Diarrhea Verified 08/09/24 10:21 clavulanic acid (From Allergy Mild Diarrhea Verified 08/09/24 10:21 Augmentin) methylprednisolone (From Allergy Itching Verified 08/09/24 12:51 Solu-Medrol) HYDROMORPHONE HCL Allergy Unknown Other Uncoded 08/09/24 10:21 Review of Systems 2 Review of Systems: All systems reviewed & are unremarkable except as noted in HPI and below PMFSH Past Medical History Medical History Anxiety Depression Hepatitis C Substance abuse Surgical History Surgical History H/O exploratory laparotomy Hx of tonsillectomy Family History Family History Father Hypertension Mother Hx of psoriatic arthritis Cardiomyopathy Other Diabetes mellitus Social History Social History Smoking status: Current every day smoker Tobacco type: cigarettes Alcohol intake: former Substance use: former Substance use type: heroin and methamphetamine Last use: clean for over 2 years Living arrangements: with family Gender identity (if verbalized by the patient): Female Exam 2 Narrative: GENERAL: Well-appearing, well-nourished, and in no acute distress. HEAD: Normocephalic, atraumatic. EYES: EOMI. ENT: Nares clear, no rhinorrhea or epistaxis. Mucous membranes moist. Oropharynx without tonsillar hypertrophy exudate or other lesions. NECK: Supple. No adenopathy or masses. CHEST: No respiratory distress. Mild, scattered wheezing. No rales or rhonchi HEART: Regular rate and rhythm. No murmur heard. Normal peripheral pulses. EXTREMITIES: Normal range of motion. No edema. SKIN: Warm, dry, no rash. NEURO: No focal deficits. Alert and oriented x3. PSYCH: Normal mood and affect Course Course Emergency Course: patient updated on her workup. Resting comfortably Vital Signs Vital signs: Vital Signs Temperature 97.1 F L 08/09/24 10:08 Pulse Rate 95 08/09/24 10:08 Respiratory Rate 21 H 08/09/24 10:08 Blood Pressure 148/86 H 08/09/24 10:08 Pulse Oximetry 98 08/09/24 10:08 Temperature 97.1 F L 08/09/24 10:08 Pulse Rate 84 08/09/24 14:34 Respiratory Rate 16 08/09/24 14:34 Blood Pressure 112/68 08/09/24 14:34 Pulse Oximetry 97 08/09/24 14:34 Oxygen Delivery Room Air 08/09/24 11:42 MDM - SOB/Dyspnea MDM Narrative Medical decision making narrative: Patient presents to the emergency for cold symptoms present since yesterday. Reporting cough, pleuritic chest pain, shortness of breath. She is afebrile and nontoxic appearing. Her vitals are stable. CBC without leukocytosis. Metabolic panel without concerning findings. EKG without acute ST changes, her baseline troponin is negative. Chest x-ray without acute cardiopulmonary abnormality. patient updated on her workup. Resting comfortably. She is to follow up with primary provider. She was given warnings to return to the ER Differential Diagnosis Differential diagnosis: Likely acute exacerbation of chronic obstructive airways disease, community acquired pneumonia and other (bronchitis) Lab Data Attestation: I reviewed the patient's lab results. 08/09/24 11:41 08/09/24 11:41 Labs: Lab Results 08/09/24 08/09/24 Range/Units 11:41 11:47 WBC 8.0 (4.5-10.0) K/mm3 RBC 4.41 (4.2-5.4) M/mm3 Hgb 13.2 (12.0-15.0) g/dL Hct 39.5 (37.0-47.0) % MCV 89.6 (80-100) fl MCH 29.9 (26-34) pg MCHC 33.4 (32-36) g/dl RDW 12.5 (11.5-14.5) % Plt Count 283 (150-375) k/mm3 MPV 9.9 (7.4-10.4) fl Immature Gran % (Auto) 0.4 (0-0.5) % Neut % (Auto) 76.2 H (45.5-73.1) % Lymph % (Auto) 12.8 L (18.3-44.2) % [place] % (Auto) 7.7 (2.6-8.5) % Eos % (Auto) 2.5 (0-4.4) % Baso % (Auto) 0.4 (0.2-1.2) % Lymph # (Auto) 1.03 (0.9-3.2) K/mm3 [place] # (Auto) 0.6 (0.1-0.6) K/mm3 Eos # (Auto) 0.2 (0-0.3) K/mm3 Baso # (Auto) 0.0 (0.0-0.1) K/mm3 Abs Immat Gran (auto) 0.03 (0.00-0.031) K/mm3 Absolute Neuts (auto) 6.1 (1.3-6.7) K/mm3 Absolute Nucleated RBC 0.000 (0.0-0.012) K/mm3 Nucleated RBC % 0.0 (0.0-0.2) % PT 12.8 (11.1-14.7) Seconds INR 0.9 APTT 25.7 (22.3-36.8) Seconds Sodium 137 (137-145) mmol/L Potassium 3.7 (3.4-5.0) mmol/L Chloride 105 (98-107) mmol/L Carbon Dioxide 27 (22-30) mmol/L Anion Gap 5 (4-12) mmol/L BUN 7 D (7-17) mg/dL Creatinine 0.74 (0.7-1.0) mg/dL Estim Creat Clear Calc 121 ml/min Estimated GFR > 60 (59 - ) Glucose 103 (65-110) mg/dL Calcium 8.7 (8.4-10.2) mg/dL Total Bilirubin 0.4 (0.2-1.3) mg/dL AST 23 (14-36) U/L ALT 18 (6-35) U/L Alkaline Phosphatase 86 (38-126) U/L Troponin I < 0.012 (0.000-0.034) ng/mL Total Protein 7.2 (6.3-8.2) g/dL Albumin 4.0 (3.5-5.1) g/dL Imaging Data Radiologist's impression: ITS Impressions Chest X-Ray 08/09/24 12:45 IMPRESSION: No acute cardiopulmonary pathology. ECG Data EKG #1: ECG completion date: 08/09/24 EKG Interpretation: normal rate, sinus rhythm, non-specific ST changes (nonspecific T wave inversions) and normal QT Critical Care Time Critical Care Time Critical Care Time: No Discharge Plan Discharge Clinical Impression: Acute bronchitis Qualifiers: Bronchitis organism: unspecified organism Qualified Code(s): J20.9 - Acute bronchitis, unspecified Patient Disposition: Home Condition: Improved Instructions: Acute Bronchitis (ED) Additional Instructions: Return to the emergency department for worsening symptoms, or any other concerns Remain well-hydrated, get plenty of rest. Take Tylenol or Motrin [id number] for pain as needed. Flonase for nasal congestion. Zyrtec for runny nose. Albuterol 2 puffs every 4-6 hours as needed for shortness of breath or wheezing. Take oral steroid as prescribed Follow up with your primary care doctor Patient Language: Albanian Prescriptions: New albuterol sulfate [Ventolin HFA] 90 mcg/actuation HFA aerosol inhaler 2 puff inhalation QID PRN (Reason: shortness of breath or wheezing) Qty: 8.5 0RF prednisone 20 mg tablet 40 mg PO DAILY 4 Days Qty: 8 0RF No Action pantoprazole 40 mg tablet,delayed release (DR/EC) PO fluticasone propionate 50 mcg/actuation spray,suspension INTRANASAL bupropion HCl 300 mg tablet extended release 24 hr PO atomoxetine [Strattera] 100 mg capsule PO ibuprofen 800 mg tablet 800 mg PO TID PRN (Reason: pain) Qty: 30 0RF methocarbamol 750 mg tablet 750 mg PO Q8H PRN (Reason: muscle pain/spasm) Qty: 30 0RF methylprednisolone [Medrol (Mychal)] 4 mg tablets,dose pack See Rx Instructions PO .COMPLEX Qty: 21 0RF Rx Instructions: orally per package directions cetirizine [Zyrtec] 10 mg tablet 10 mg PO DAILY Qty: 20 0RF Follow-up/Referrals: Yared Saxena MD [Primary Care Provider] -
[2024-08-09] MEDS: IPRATROPIUM 0.5 MG/ALBUTEROL SULFATE 2.5 MG AMPUL.NEB 3 ML INHALATION (11:35)
[2024-08-09 11:49] LABS: Basophils Percent Auto 0.4 % (0.2-1.2); Eosinophils Absolute Auto 0.2 K/mm3 (0-0.3); Eosinophils Percent Auto 2.5 % (0-4.4); Hematocrit 39.5 % (37.0-47.0); Hemoglobin 13.2 g/dL (12.0-15.0); Immature Granulocyte Absolute 0.03 K/mm3 (0.00-0.031); Immature Granulocyte Percent A 0.4 % (0-0.5); Lymphocytes Absolute Auto 1.03 K/mm3 (0.9-3.2); Lymphocytes Percent Auto 12.8 % (18.3-44.2); Mean Corpuscular HGB Conc 33.4 g/dl (32-36); Mean Corpuscular Hemoglobin 29.9 pg (26-34); Mean Corpuscular Volume 89.6 fl (80-100); Mean Platelet Volume 9.9 fl (7.4-10.4); Monocytes Absolute Auto 0.6 K/mm3 (0.1-0.6); Monocytes Percent Auto 7.7 % (2.6-8.5); Neutrophils Absolute Auto 6.1 K/mm3 (1.3-6.7); Neutrophils Percent Auto 76.2 % (45.5-73.1); Platelet Count Result 283 k/mm3 (150-375); Red Blood Count 4.41 M/mm3 (4.2-5.4); Red Cell Distribution Width 12.5 % (11.5-14.5)
[2024-08-09 11:58] LABS: Alanine Aminotransferase 18 U/L (6-35); Alkaline Phosphatase 86 U/L (38-126); Anion Gap 5 mmol/L (4-12); Aspartate Amino Transferase 23 U/L (14-36); Bilirubin,Total 0.4 mg/dL (0.2-1.3); Blood Urea Nitrogen 7 mg/dL (7-17); Calcium 8.7 mg/dL (8.4-10.2); Carbon Dioxide 27 mmol/L (22-30); Chloride 105 mmol/L (98-107); Estimated CRCL calculation 121 ml/min; Estimated Glomerular Filt Rate > 60; Glucose 103 mg/dL (65-110); Potassium 3.7 mmol/L (3.4-5.0); Sodium 137 mmol/L (137-145); Total Protein 7.2 g/dL (6.3-8.2)
[2024-08-09 12:00] LABS: INR 0.9; Prothrombin Time 12.8 Seconds (11.1-14.7)
[2024-08-09 12:01] LABS: Partial Thromboplastin Time 25.7 Seconds (22.3-36.8)
[2024-08-09] MEDS: methylPREDNISolone SOD SUCC 125 MG VIAL IV PUSH (12:19)
[2024-08-09] MEDS: diphenhydrAMINE HCl INJ 50 MG/ML VIAL 25 MG IV PUSH (12:46)
--- NOTE | 2024-08-09 12:50 | PC.NURSE ---
Pt reported itching after administration of solumedrol. EDP made aware. Added to allergy list.
[2024-08-09 14:09] LABS: Troponin I < 0.012 ng/mL (0.000-0.034)
== END 2024-08-09 15:08 | disposition home or self-care (01) ==
PROVIDERS: Emergency Provider Physician Assistant; PCP Internal Medicine
DX: J20.9 Acute bronchitis, unspecified (principal); F41.8 Other specified anxiety disorders; Z86.19 Personal history of other infectious and parasitic diseases; F17.210 Nicotine dependence, cigarettes, uncomplicated
CPT/HCPCS: 36415; 71046; 80053; 84484; 85025; 85610; 85730; 93005; 94640; 96374; 96375; 99284; J1200; J2919

== ENCOUNTER 2024-08-13 11:51 | Emergency (ER) | payer OTHER, SELFPAY ==
--- NOTE | ~2024-08-13 | XR_ITS ---
XR chest 2V Ordering provider: Michela Tobias PA-C History: 43 years Female with . left chest wall pain, cough . Comparison: August 09, 2024 FINDINGS: MEDIASTINUM: The cardiac silhouette is not enlarged. LUNGS: No infiltrates, effusions or pneumothorax. OTHER: No free air under the diaphragm. IMPRESSION: No acute cardiopulmonary pathology. Reviewed, dictated and finalized at location A.
[2024-08-13 12:17] VITALS: BP 146/80; PULSE 88; RESP 17; TEMP 36.5; O2SAT 99
[2024-08-13 14:08] VITALS: BP 135/74; PULSE 87; RESP 18; TEMP 36.5; O2SAT 99
--- NOTE | 2024-08-13 14:51 | ED.SOB ---
HPI - SOB/Dyspnea General Chief Complaint: Upper Respiratory Infection Stated Complaint: SOB, bronchitis Time Seen by Provider: 08/13/24 16:25 Focused HPI: 43 year old female presenting with increased shortness of breath and left chest wall pleuritic pain. Patient was evaluated in our ED 4 days ago and diagnosed with acute bronchitis. She was prescribed prednisone and albuterol. 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 She has not had any relief with with albuterol. Patient states the pain to her chest is located in the left lateral posterior chest wall that is worse with deep inspiration, coughing and sneezing. She denies a history of COPD/asthma and DVT/PE. She has a history of smoking half a pack/day. He denies recent surgeries or hospitalizations, history of VTE, hemoptysis. GENERAL: Well-appearing, well-nourished, and in no acute distress. HEAD: Normocephalic, atraumatic. CHEST: Very faint wheezing in the left upper lung field. No respiratory distress. Tenderness to the left posterior lateral chest wall with no overlying skin changes, crepitus, step-offs or deformities. Patient satting 99% on room air in no respiratory distress speaking in full sentences. HEART: Regular rate and rhythm.? NEURO: ?Alert and oriented x3. Patient screened in triage and initial orders placed.? ?Additional care and disposition to be based upon?diagnostic testing and treatment. History of Present Illness HPI Narrative: Agree with above triage note. Related Data Home Medications ?Medication ?Instructions ?Recorded ?Confirmed ?Last Taken ?Type atomoxetine 100 mg capsule mg PO 05/20/24 Unknown History (Strattera) bupropion HCl 300 mg 24 hr tablet, mg PO 05/20/24 Unknown History extended release fluticasone propionate 50 intranasal 05/20/24 Unknown History mcg/actuation nasal spray,suspension pantoprazole 40 mg tablet,delayed mg PO 05/20/24 Unknown History release Allergies Allergy/AdvReac Type Severity Reaction Status Date / Time adhesive Allergy Intermediate Blister Verified 08/09/24 10:21 ampicillin Allergy Intermediate Hives Verified 08/09/24 10:21 codeine Allergy Intermediate Rash Verified 08/09/24 10:21 erythromycin base Allergy Intermediate Hives Verified 08/09/24 10:21 Penicillins Allergy Intermediate Rash Verified 08/09/24 10:21 amoxicillin (From Augmentin) Allergy Mild Diarrhea Verified 08/09/24 10:21 clavulanic acid (From Allergy Mild Diarrhea Verified 08/09/24 10:21 Augmentin) hydromorphone Allergy Unknown Pt has hx Verified 08/13/24 15:01 of heroin addiction methylprednisolone (From Allergy Itching Verified 08/09/24 12:51 Solu-Medrol) Review of Systems Review of Systems: All systems reviewed & are unremarkable except as noted in HPI and below PMFSH Past Medical History Medical History Substance abuse Hepatitis C Anxiety Depression Surgical History Surgical History Hx of tonsillectomy H/O exploratory laparotomy Family History Family History Father Hypertension Mother Hx of psoriatic arthritis Cardiomyopathy Other Diabetes mellitus Social History Social History Smoking status: Current every day smoker Tobacco type: cigarettes Alcohol intake: former Substance use: former Substance use type: heroin and methamphetamine Last use: clean for over 2 years Living arrangements: with family Gender identity (if verbalized by the patient): Female Exam Narrative: GENERAL: Well-appearing, well-nourished, and in no acute distress. HEAD: Normocephalic, atraumatic. EYES: EOMI. ENT: Nares clear, no rhinorrhea or epistaxis. Mucous membranes moist. NECK: Supple. CHEST: Clear to auscultation. No respiratory distress. Tenderness to the left lateral and posterior ribs with no overlying skin changes, crepitus, step-offs or deformities. HEART: Regular rate and rhythm. No murmur heard. Normal peripheral pulses. ABDOMEN: Soft, nontender, nondistended, normal active bowel sounds. EXTREMITIES: Normal range of motion. No edema. Negative Homans bilaterally. SKIN: Warm, dry, no rash. NEURO: No focal deficits. Alert and oriented x3 Course Vital Signs Vital signs: Vital Signs Temperature 97.7 F 08/13/24 12:17 Pulse Rate 88 08/13/24 12:17 Respiratory Rate 17 08/13/24 12:17 Blood Pressure 146/80 H 08/13/24 12:17 Pulse Oximetry 99 08/13/24 12:17 Oxygen Delivery Room Air 08/13/24 12:17 Temperature 97.7 F 08/13/24 14:08 Pulse Rate 88 08/13/24 16:39 Respiratory Rate 18 08/13/24 16:39 Blood Pressure 138/77 08/13/24 16:39 Pulse Oximetry 97 08/13/24 16:39 Oxygen Delivery Room Air 08/13/24 14:56 MDM - SOB/Dyspnea MDM Narrative Medical decision making narrative: 43-year-old female with a history of smoking 1/2 pack per day presents to the emergency department for pleuritic chest pain and cough for the past few days. Patient was evaluated in our ED 4 days ago and diagnosed with bronchitis. She was discharged home with steroids and albuterol inhaler. She has been using the albuterol inhaler without improvement. She has not picked up the stairs from the pharmacy. On arrival to our ED today patient's vital signs are stable. She is afebrile and nontoxic. Resting comfortably in exam bed. She is satting 99% on room air in no respiratory distress. Her lab work shows no leukocytosis or anemia. Chemistries are unremarkable. Chest x-ray shows no acute cardiopulmonary findings. EKG shows normal sinus rhythm with a rate of 84 ppm, normal CT interval, normal QRS duration, normal QTC, no acute ischemic changes. Troponin is undetectable. BNP is within normal limits. Perc is negative. Patient was updated on results. She received oral steroids and DuoNeb with significant improvement. Lung clear. I suspect her pleuritic chest pain is due to pleurisy from bronchitis. 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 Will also provide naproxen and Tessalon Perles for symptomatic control. Patient is requesting refills of her DuoNeb solution which is also been provided. Encouraged close follow-up with PCP and discussed strict ED return precautions. She is agreeable to plan verbalized understanding. Discharged in stable condition. Lab Data 08/13/24 15:07 08/13/24 15:07 Labs: Lab Results 08/13/24 Range/Units 15:07 WBC 9.9 (4.5-10.0) K/mm3 RBC 4.51 (4.2-5.4) M/mm3 Hgb 13.4 (12.0-15.0) g/dL Hct 41.0 (37.0-47.0) % MCV 90.9 (80-100) fl MCH 29.7 (26-34) pg MCHC 32.7 (32-36) g/dl RDW 12.9 (11.5-14.5) % Plt Count 337 (150-375) k/mm3 MPV 9.5 (7.4-10.4) fl Immature Gran % (Auto) 0.3 (0-0.5) % Neut % (Auto) 63.7 (45.5-73.1) % Lymph % (Auto) 26.3 (18.3-44.2) % [place] % (Auto) 6.0 (2.6-8.5) % Eos % (Auto) 3.4 (0-4.4) % Baso % (Auto) 0.3 (0.2-1.2) % Lymph # (Auto) 2.60 (0.9-3.2) K/mm3 [place] # (Auto) 0.6 (0.1-0.6) K/mm3 Eos # (Auto) 0.3 (0-0.3) K/mm3 Baso # (Auto) 0.0 (0.0-0.1) K/mm3 Abs Immat Gran (auto) 0.03 (0.00-0.031) K/mm3 Absolute Neuts (auto) 6.3 (1.3-6.7) K/mm3 Absolute Nucleated RBC 0.000 (0.0-0.012) K/mm3 Nucleated RBC % 0.0 (0.0-0.2) % PT 12.3 (11.1-14.7) Seconds INR 0.9 APTT 23.9 (22.3-36.8) Seconds Sodium 141 (137-145) mmol/L Potassium 3.8 (3.4-5.0) mmol/L Chloride 104 (98-107) mmol/L Carbon Dioxide 28 (22-30) mmol/L Anion Gap 9 (4-12) mmol/L BUN 13 D (7-17) mg/dL Creatinine 0.84 (0.7-1.0) mg/dL Estim Creat Clear Calc 98 ml/min Estimated GFR > 60 (59 - ) Glucose 88 (65-110) mg/dL Calcium 8.6 (8.4-10.2) mg/dL Magnesium 2.1 (1.6-2.3) mg/dL Total Bilirubin 0.2 (0.2-1.3) mg/dL AST 25 (14-36) U/L ALT 18 (6-35) U/L Alkaline Phosphatase 82 (38-126) U/L Troponin I < 0.012 (0.000-0.034) ng/mL NT-Pro-B Natriuret Pep 77 (19.9-100) pg/mL Total Protein 7.6 (6.3-8.2) g/dL Albumin 4.0 (3.5-5.1) g/dL Discharge Plan Discharge Clinical Impression: Pleurisy, Bronchitis Patient Disposition: Home Condition: Stable Instructions: Antibiotic Form, Pleurisy (DC), Acute Bronchitis (ED) Additional Instructions: Your evaluated in the emergency department for chest pain with deep inspiration and cough. Your workup here is reassuring. Your presentation is consistent with bronchitis and pleurisy as discussed. Please take the medications as directed. 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 Use your nebulizer treatment every 6 hours as needed for shortness of breath. Follow-up closely with her primary care provider. Stop smoking. Return to the emergency department if you develop fever, worsening or changing shortness of breath or chest pain, you are coughing up blood, or other concerning symptoms. Patient Language: Congolese Prescriptions: New ipratropium-albuterol 0.5 mg-3 mg(2.5 mg base)/3 mL solution for nebulization 3 ml inhalation QID PRN (Reason: shortness of breath) Qty: 90 0RF benzonatate 200 mg capsule 200 mg PO BID PRN (Reason: cough) Qty: 14 0RF naproxen 500 mg tablet 500 mg PO BID PRN (Reason: pain) Qty: 20 0RF No Action pantoprazole 40 mg tablet,delayed release (DR/EC) PO fluticasone propionate 50 mcg/actuation spray,suspension INTRANASAL bupropion HCl 300 mg tablet extended release 24 hr PO atomoxetine [Strattera] 100 mg capsule PO ibuprofen 800 mg tablet 800 mg PO TID PRN (Reason: pain) Qty: 30 0RF methocarbamol 750 mg tablet 750 mg PO Q8H PRN (Reason: muscle pain/spasm) Qty: 30 0RF methylprednisolone [Medrol (Mychal)] 4 mg tablets,dose pack See Rx Instructions PO .COMPLEX Qty: 21 0RF Rx Instructions: orally per package directions cetirizine [Zyrtec] 10 mg tablet 10 mg PO DAILY Qty: 20 0RF albuterol sulfate [Ventolin HFA] 90 mcg/actuation HFA aerosol inhaler 2 puff inhalation QID PRN (Reason: shortness of breath or wheezing) Qty: 8.5 0RF prednisone 20 mg tablet 40 mg PO DAILY 4 Days Qty: 8 0RF Follow-up/Referrals: Yared Saxena MD [Primary Care Provider] -
[2024-08-13 14:56] VITALS: O2SAT 97
--- NOTE | 2024-08-13 14:56 | ECG_ITS ---
Test Date: 2024-08-13 15:25:32 Measurements Intervals [place] Rate: 84 P: 48 TX: 136 QRS: 17 QRSD: 99 T: 3 QT: 392 QTc: 465 Interpretive Statements SINUS RHYTHM VOLTAGE CRITERIA FOR LVH BORDERLINE ST-T WAVE ABNORMALITY- INFERIOR LEADS BASELINE ARTIFACT- I, II, III, AVR, AVL, AVF BORDERLINE ECG Compared to ECG 08/09/2024 11:27:52 NO SIGNIFICANT CHANGE Electronically Signed On 08-13-2024 16:58:09 CDT by Aaron Suero D.O.
[2024-08-13] MEDS: predniSONE 20 MG TABLET 60 MG PO (15:02)
[2024-08-13 15:17] LABS: Basophils Percent Auto 0.3 % (0.2-1.2); Eosinophils Absolute Auto 0.3 K/mm3 (0-0.3); Eosinophils Percent Auto 3.4 % (0-4.4); Hemoglobin 13.4 g/dL (12.0-15.0); Immature Granulocyte Absolute 0.03 K/mm3 (0.00-0.031); Immature Granulocyte Percent A 0.3 % (0-0.5); Lymphocytes Percent Auto 26.3 % (18.3-44.2); Mean Corpuscular HGB Conc 32.7 g/dl (32-36); Mean Corpuscular Hemoglobin 29.7 pg (26-34); Mean Corpuscular Volume 90.9 fl (80-100); Mean Platelet Volume 9.5 fl (7.4-10.4); Monocytes Absolute Auto 0.6 K/mm3 (0.1-0.6); Neutrophils Absolute Auto 6.3 K/mm3 (1.3-6.7); Neutrophils Percent Auto 63.7 % (45.5-73.1); Platelet Count Result 337 k/mm3 (150-375); Red Blood Count 4.51 M/mm3 (4.2-5.4); Red Cell Distribution Width 12.9 % (11.5-14.5); White Blood Count 9.9 K/mm3 (4.5-10.0)
[2024-08-13 15:29] LABS: Alanine Aminotransferase 18 U/L (6-35); Alkaline Phosphatase 82 U/L (38-126); Anion Gap 9 mmol/L (4-12); Aspartate Amino Transferase 25 U/L (14-36); Bilirubin,Total 0.2 mg/dL (0.2-1.3); Blood Urea Nitrogen 13 mg/dL (7-17); Calcium 8.6 mg/dL (8.4-10.2); Carbon Dioxide 28 mmol/L (22-30); Chloride 104 mmol/L (98-107); Estimated CRCL calculation 98 ml/min; Estimated Glomerular Filt Rate > 60; Glucose 88 mg/dL (65-110); INR 0.9; Magnesium 2.1 mg/dL (1.6-2.3); Potassium 3.8 mmol/L (3.4-5.0); Prothrombin Time 12.3 Seconds (11.1-14.7); Sodium 141 mmol/L (137-145); Total Protein 7.6 g/dL (6.3-8.2)
[2024-08-13 15:30] LABS: Partial Thromboplastin Time 23.9 Seconds (22.3-36.8)
[2024-08-13] MEDS: IPRATROPIUM 0.5 MG/ALBUTEROL SULFATE 2.5 MG AMPUL.NEB 3 ML INHALATION (15:30)
[2024-08-13 15:41] LABS: NT Pro B Type Natriuretic Pept 77 pg/mL (19.9-100); Troponin I < 0.012 ng/mL (0.000-0.034)
[2024-08-13 16:39] VITALS: BP 138/77; PULSE 88; RESP 18; O2SAT 97
== END 2024-08-13 17:10 | disposition home or self-care (01) ==
LOC: ANHED 16:43
PROVIDERS: Emergency Provider Physician Assistant; PCP Internal Medicine
DX: J40 Bronchitis, not specified as acute or chronic (principal); R09.1 Pleurisy; F41.9 Anxiety disorder, unspecified; F32.A Depression, unspecified; F17.210 Nicotine dependence, cigarettes, uncomplicated; Z86.19 Personal history of other infectious and parasitic diseases; Z79.899 Other long term (current) drug therapy; R94.31 Abnormal electrocardiogram [ECG] [EKG]
CPT/HCPCS: 36415; 71046; 80053; 83735; 83880; 84484; 85025; 85610; 85730; 93005; 94640; 99284; J7512

== ENCOUNTER 2024-08-26 07:09 | Outpatient (CLI) | payer OTHER, SELFPAY ==
--- NOTE | ~2024-08-26 | MR_ITS ---
MRI of the brain Clinical History: Headache disorder Technique: Axial and sagittal T1-weighted images were acquired. These were followed by axial T2-weigh emilia, diffusion weighted, gradient, and FLAIR images. Following intravenous administration of 20 cc Mu ltiHance gadolinium, T1-weighted fat-sat imaging was performed in the axial and coronal planes. Findings: No significant signal abnormality seen in the brain parenchyma. No acute infarct, intracran ial hemorrhage, or mass lesion. Ventricles and subarachnoid spaces are unremarkable. Orbits are unremarkable. There is retention cyst or polyp in the left maxillary sinus. Remaining paranasal sinuses and mastoid air cells are clear. M ajor intracranial flow voids are intact. Sagittal midline structures are intact. No abnormal postcontrast enhancement identified. IMPRESSION: Minimal left maxillary sinus disease, otherwise unremarkable exam. Reviewed, dictated and finalized at location .
--- OUTSIDE RECORDS SUMMARY | 2024-08-26 07:12 | XMS_ITS | Clinical Summary ---
Author Organization [facility] Address [address] [place] [address] Care Team Providers Care Urban Renewal Manager Name Role Phone Yared Saxena MD Primary Care Provider [phone] Source Comments [facility],non-owned Affiliates and Associated Physician Practices is amultiple site organization consisting of ambulatory clinics and hospital sitesin [place], [place], [place] and [place]. This disclosure is being madepursuant to the Care Everywhere program and may not contain all information available regarding this patient. Last updated 11/10/17[employer] Allergies Active Allergy Reactions Criticality Noted Date Comments Adhesive Sensitivity Other 10/18/2018 blisters Amoxicillin Rash Medium 10/18/2018 Ampicillin Rash Medium 10/18/2018 Augmentin Diarrhea,Vomiting 10/18/2018 Erythromycin Eye Itching 01/24/2023 Lactose Diarrhea,Vomiting 10/18/2018 Medications * Be aware that medications may not be up to date on this document. Alwaysverify current medications with the patient. naltrexone (VIVITROL) injection Inject 380 mg into muscle Active raNITIdine (ZANTAC) 300 MG tablet Take 300 mg by mouth nightly as needed Active atomoxetine (STRATTERA) 40 MG capsule Take 40 mg by mouth 2 times daily Active gabapentin (NEURONTIN) 600 MG tablet Take 600 mg by mouth 3 times daily Active albuterol HFA (PROVENTIL;VENT MICKIE;PROAIR) 108 (90 Base) MCG/ACT inhaler INL 1 [...] drink = 0.6 oz pur e alcohol) Comments Unknown Sex and Gender Information Value Date Recorded Sex Assigned at Female 01/24/2023 9:13 PM DIRECTOR BIOINFORMATICS Legal Sex Female 5:43 AM DIRECTOR BIOINFORMATICS Gender Identity Female 01/24/2023 9:13 PM DIRECTOR BIOINFORMATICS Sexual Orientation Straight 01/24/2023 9: 13 PM DIRECTOR BIOINFORMATICS Last Filed Vital Signs Vital Sign Reading Time Taken Comments Blood Pressure 141/73 01/25/2023 8:01 AM DIRECTOR BIOINFORMATICS Pulse 83 01/25/2023 8:01 AM DIRECTOR BIOINFORMATICS Temperature 36.3 C (97.4 F) 01/25/2023 8:01 AM DIRECTOR BIOINFORMATICS Respiratory Rate 12 01/25/2023 8:01 AM DIRECTOR BIOINFORMATICS Oxygen Saturation 99% 01/25/2023 8:01 AM DIRECTOR BIOINFORMATICS Inhaled Oxygen Concentration - - Weight 104.3 kg (230 lb) 01/24/2023 6:56 PM DIRECTOR BIOINFORMATICS Height 177.8 cm (5' 10) 01/24/2023 6:56 PM DIRECTOR BIOINFORMATICS Body Mass Index 33 01/24/2023 6:56 PM DIRECTOR BIOINFORMATICS Plan of Treatment Health Maintenance Due Date Last Done Comments MAMMOGRAM 1982 DTAP/TDAP/TD VACCINES (1 - Tdap) 2001 HEPATITIS B VACCINE (1 of 3 - 19+ 3-dose series) 2001 PNEUMOCOCCAL VACCINE (1 of 2 - PCV) 2001 PAP SMEAR 11/17/2003 COVID-19 VACCINE (1 - season) 2023 DEPRESSION [...] Management General On track( 020 12:44 PM DIRECTOR BIOINFORMATICS) Leelee Balbuena, RN Note: Expected end date: ongoing Interventions: Take all medications as prescribed Procedures Procedure Name Priority Date/Time Associated Diagnosis Comments LIPID PROFILE Routine 03/29/2024 9:13 AM DIRECTOR BIOINFORMATICS Contact with or exposure to communicable disease Screening for diabetes mellitus Pain in joint, multiple sites Screening for lipoid disorders HEPATITIS C RNA QUANTITATIVE Routine 03/29/2024 9:13 AM DIRECTOR BIOINFORMATICS Contact with or exposure to communicable disease Screening for diabetes mellitus Pain in joint, multiple sites Screening for lipoid disorders HIV-1 HIV-2 ANTIBODY + HIV P24 AG PANEL Routine 03/29/2024 9:13 AM DIRECTOR BIOINFORMATICS Contact with or exposure to communicable disease Screening for diabetes mellitus Pain in joint, multiple sites Screening for lipoid disorders from Last 3 Months or Most Recently Relevant to Health Maintenance Results * HIV 1 & HIV 2 ANTIBODY (IN HOUSE) (03/29/2024 9:13 AM DIRECTOR BIOINFORMATICS) Pathologist [facility] HIV1/2 Ab + P24 Ag NON-REACTI VE/NEGATIV E NON-REACTI VE/NEGATIV E 03/29/2024 10:32 AM DIRECTOR BIOINFORMATICS [facility] Blood BLOOD SPECIMEN / Unknown Venipuncture / Unknown 03/29/2024 9:13 AM DIRECTOR BIOINFORMATICS 03/29/2024 9:27 AM DIRECTOR BIOINFORMATICS us Yared Saxena MD LAB - CHEMISTRY ORDERABLES Fin al Result [facility] [address] * HEPATITIS C RNA QUANTITATIVE PCR (03/29/2024 9:13 AM DIRECTOR BIOINFORMATICS) [facility] HCV Quant by NAAT (IU/mL) Not Detected IU/mL 03/31/2024 6:55 AM DIRECTOR BIOINFORMATICS [facility] HCV Quant by NAAT (log IU/mL) Not Detected log IU/mL 03/31/2024 6:55 AM DIRECTOR BIOINFORMATICS [facility] ([facility]) HCV Quant by NAAT Interp Not Detected Not Detected 03/31/2024 6:55 AM DIRECTOR BIOINFORMATICS [facility] ([facility]) Comment: INTERPRETIVE INFORMATION: HCV by Quantitative [...] and cellular tissue-based products (HCT/P). Performed By: [facility] [address] [place] [address] Maintenance Team Member: Aiden Mejia MD, PhD CLIA Number: [id number] Blood BLOOD SPECIMEN / Unknown Venipuncture / Unknown 03/29/2024 9:13 AM DIRECTOR BIOINFORMATICS 03/29/2024 9:27 AM DIRECTOR BIOINFORMATICS us Yared Saxena MD LAB - CHEMISTRY ORDERABLES Fin al Result [facility] ([facility]) [address] [place] [id number], [facility] * LIPID PROFILE (03/29/2024 9:13 AM DIRECTOR BIOINFORMATICS) Cholesterol 173 <200 mg/dL 03/29/2024 9:54 AM DIRECTOR BIOINFORMATICS [facility] Triglycerides 83 <150 mg/dL 03/29/2024 9:54 AM DIRECTOR BIOINFORMATICS [facility] HDL Cholesterol 58 >40 mg/dL 9:54 AM [facility] Chol HDL Ratio 3.0 1.0 - 6.0 03/29/2024 9:54 AM [facility] LDL Calculated 98 65 - 130 mg/dL 03/29/2024 9:54 AM [facility] VLDL Calculated 17 <=30 mg/dL 9:54 AM [facility] Blood BLOOD SPECIMEN / Unknown Venipuncture / Unknown 03/29/2024 9:13 AM DIRECTOR BIOINFORMATICS 03/29/2024 9:27 AM DIRECTOR BIOINFORMATICS Narrative AM LABORATORY - 03/29/2024 9:54 AM DIRECTOR BIOINFORMATICS Lipid Profile Comment: CHOLESTEROL LEVEL..................CLINICAL INTERPRETATION LESS [...] 2X AVERAGE.................. 9.5 ...................... 7.0 3X AVERAGE...................>23........................>11 us Yared Saxena MD LAB - CHEMISTRY ORDERABLES Fin al Result [facility] [address] from Last 3 Months or Most Recently Relevant to Health Maintenance Insurance [id number] [facility] [address] [place] [id number] [facility] Advance Directives * Full Code (Latest Code Status on File) Date Activated Date Inactivated Comments 01/25/2023 8:37 AM 01/25/2023 11:17 AM Care Teams Urban Renewal Manager Relationship Specialty Start Date End Date Yared Saxena MD [address] [place] [phone] PCP - General Internal Medicine 03/29/24
--- OUTSIDE RECORDS SUMMARY | 2024-08-26 07:12 | XMS_ITS | Referral Summary ---
Author Organization [facility] Address [address] [place] [address] Care Team Providers Care Webbing Inspector Name Role Phone Unknown, Notinfile Primary Care [...] on file Legal Sex Female 4:59 AM PARKING ENFORCER Gender Identity Not on file Sexual Orientation Not on file Last Filed Vital Signs Vital Sign Reading Time Taken Comments Blood Pressure 126/74 02/11/2021 7:57 PM PARKING ENFORCER Pulse 83 02/11/2021 7:57 PM PARKING ENFORCER Temperature 36.9 C (98.5 F) 02/11/2021 4:46 PM PARKING ENFORCER Respiratory Rate 16 02/11/2021 7:57 PM PARKING ENFORCER Oxygen Saturation 100% 02/11/2021 7:57 PM PARKING ENFORCER Inhaled Oxygen Concentration - - Weight 94.5 kg (208 lb 5.4 oz) 02/11/2021 4:46 P M PARKING ENFORCER Height 175.3 cm (5' 9) 02/11/2021 4:46 PM PARKING ENFORCER Body Mass Index 30.77 02/11/2021 4:46 PM PARKING ENFORCER Plan of Treatment Not on file Insurance [facility] Advance Directives For more information, please contact: [phone] * Full Code (Latest Code Status on File) Date Activated Date Inactivated Comments 02/01/2017 6:04 PM 02/04/2017 11:00 AM Care Teams Webbing Inspector Relationship Specialty Start Date End Date Unknown, Notinfile PCP - General 01/31/17
--- OUTSIDE RECORDS SUMMARY | 2024-08-26 07:12 | XMS_ITS | Clinical Summary ---
Author Organization [facility] Address [address] [place] [address] Care Team Providers Care Medical Scheduler Name Role Phone Unknown, Notinfile Primary Care [...] on file Legal Sex Female 4:59 AM FOOD SERVICE DRIVER Gender Identity Not on file Sexual Orientation Not on file Obstetrics History Last Filed Vital Signs Vital Sign Reading Time Taken Comments Blood Pressure 126/74 02/11/2021 7:57 PM FOOD SERVICE DRIVER Pulse 83 02/11/2021 7:57 PM FOOD SERVICE DRIVER Temperature 36.9 C (98.5 F) 02/11/2021 4:46 PM FOOD SERVICE DRIVER Respiratory Rate 16 02/11/2021 7:57 PM FOOD SERVICE DRIVER Oxygen Saturation 100% 02/11/2021 7:57 PM FOOD SERVICE DRIVER Inhaled Oxygen Concentration - - Weight 94.5 kg (208 lb 5.4 oz) 02/11/2021 4:46 P M FOOD SERVICE DRIVER Height 175.3 cm (5' 9) 02/11/2021 4:46 PM FOOD SERVICE DRIVER Body Mass Index 30.77 02/11/2021 4:46 PM FOOD SERVICE DRIVER Plan of Treatment Not on file Insurance [facility] Advance Directives For more information, please contact: [phone] * Full Code (Latest Code Status on File) Date Activated Date Inactivated Comments 02/01/2017 6:04 PM 02/04/2017 11:00 AM Care Teams Medical Scheduler Relationship Specialty Start Date End Date Unknown, Notinfile PCP - General 01/31/17
--- OUTSIDE RECORDS SUMMARY | 2024-08-26 07:12 | XMS_ITS | Encounter Summary ---
Author Organization [facility] Address [address] [place] [address] Care Team Providers Care Senior Oracle Database Developer Name Role Phone Josué Farias Primary Care Provider Yared Saxena MD Primary Care Provider [phone] Encounter Details Date Type Department Care Team (Late st Contact Info) Description 01/25/2023 Ophth Exam [facility] - Ophthalmology [address] [place] [address] Austin Doan MD [address] [facility] [place] [address] Social History Tobacco Use Types Packs/Day Years Used Date Smoking Tobacco: Every Day Cigarettes Smokeless Tobacco: Never Comments:also vapes Alcohol Use Standard Drinks/Week Comments Not Currently 0 (1 standard drink = 0.6 oz pur e alcohol) Comments Unknown Sex and Gender Information Value Date Recorded Sex Assigned at Female 01/24/2023 9:13 PM PRODUCTION PROOFREADER Legal Sex Female 5:43 AM PRODUCTION PROOFREADER Gender Identity Female 01/24/2023 9:13 PM PRODUCTION PROOFREADER Sexual Orientation Straight 01/24/2023 9: 13 PM PRODUCTION PROOFREADER documented as of this encounter Plan of Treatment Not on file documented as of this encounter Goals Goal Patient Goal Type Associated Problems Recent Progress Patient-Stated? Author Medication Management General On track( 020 12:44 PM PRODUCTION PROOFREADER) Leelee Balbuena, RN Note: Expected end date: ongoing Interventions: Take all medications as prescribed documented as of this encounter Visit Diagnoses Not on filedocumented in this encounter Care Teams Senior Oracle Database Developer Relationship Specialty Start Date End Date Josué Farias APRN-PAYROLL ACCOUNTING MANAGER PCP - General Nurse Practitioner Family 08/21/1803/28 Yared Saxena MD [address] [facility] [address] [place] [id number] PCP - General Internal Medicine 03/29/24 documented as of this encounter
== END 2024-08-26 07:10 | disposition home or self-care (01) ==
PROVIDERS: PCP Internal Medicine; Visit Provider Internal Medicine
DX: R51.9 Headache, unspecified (principal)
CPT/HCPCS: 70553; A9577

== ENCOUNTER 2024-10-15 23:42 | Emergency (ER) | payer OTHER, SELFPAY ==
--- OUTSIDE RECORDS SUMMARY | 2002-08-12 19:00 | XMS_ITS | Continuity of Care Document ---
Author Organization [facility] Address [address] [place] [address] Phone Care Team Providers Care Oil Painter Name Role Phone Alysia Duque MD Unavailable Unavailabl e Advance Directives Directive Yes / No Effective Date File Name No Information Encounters Encounter Description Practice Location Reason(s) For Visit Diagnoses Date Provider Providers Copied on Encounter [facility], [address], [place], [place], [id number], tel:[phone] [facility] [address] [place], [place], [id number]. tel:[phone] [facility], [address], [place], [place], [address], tel:[phone] [place] Conversion Doctor. [address] [place] [address], [address], . [facility], [address], [place], [place], [address], tel:[phone] [place] [facility]. [address] [place], [place], [id number]. tel:[phone] Family History Family Member Type Diagnosis Age At Onset No Information Payers Payer name Insurance type Covered green party ID Authoriza tion(s) No Information Social History Type Description Quantity Date Captured Comments Sex Female Smoking Status No Information Chief Complaint And Reason For Visit No Information Reason For Referral Reason For Referral No Information History Of Present Illness Encounter Date Complaint History Of Prese nt Illness No Information Functional Status Date Functional Assessmen t No Information Instructions Date Instruction Additional Infor mation No Information Assessments Type Assessment Date No Information Patient Care Teams Name Effective Dates (start - stop) Status Members No Information
--- OUTSIDE RECORDS SUMMARY | 2002-08-12 19:00 | XMS_ITS | Continuity of Care Document ---
Author Organization [facility] Address [address] [place] [address] Phone Care Team Providers Care Roll Contour Grinder Name Role Phone Alysia Duque MD Unavailable Unavailabl e Advance Directives Directive Yes / No Effective Date File Name No Information Encounters Encounter Description Practice Location Reason(s) For Visit Diagnoses Date Provider Providers Copied on Encounter [facility], [address], [place], [place], [address], tel:[phone] [facility] [address] [place], [place], [id number]. tel:[phone] [facility], [address], [place], [place], [address], tel:[phone] [facility] Conversion Doctor. [address] [place] [address], [address], . [facility], [address], [place], [place], [address], tel:[phone] [place] [address] [place], [place], [id number]. tel:[phone] Family History Family Member Type Diagnosis Age At Onset No Information Payers Payer name Insurance type Covered libertarian ID Authoriza tion(s) No Information Social History [...]
--- NOTE | ~2024-10-15 | CT_ITS ---
EXAMINATION: CT abd pelvis lumbar w con DATE: 10/16/2024 01:44 INDICATION: Bilateral leg numbness. Back pain for 2 weeks. Pelvic pressure. TECHNIQUE: Computed tomography (CT) of the abdomen, pelvis and lumbar spine was performed without intravenous contrast. The dose-length product was 1609.59 mGy- cm. Automated exposure control and iterative reconstruction technique were employed. COMPARISON: CT dated 01/19/2022 FINDINGS: Lung bases unremarkable. Heart size normal. No significant pleural or pericardial effusion. Fatty infiltration of the liver. Small splenic cysts. The pancreas, adrenal glands and kidneys are unremarkable. Gallbladder is present. Nonobstructive bowel gas pattern. No abnormal pelvic masses or fluid collections. No significant vascular abnormality. No lymphadenopathy. Lumbar spine: Vertebral body heights are maintained. No significant disc narrowing. No acute fracture, subluxation or dislocation. No evidence for spondylolisthesis. Mild degenerative disc disease and endplate hypertrophy at L1-2. IMPRESSION: 1. No acute abnormality of the abdomen, pelvis or lumbar spine. Reviewed, dictated and finalized at location O.
--- NOTE | ~2024-10-15 | CT_ITS ---
EXAMINATION: CT thoracic spine wo con DATE: 10/16/2024 01:43 INDICATION: Bilateral leg numbness. Back pain. TECHNIQUE: Computed tomography (CT) of the thoracic spine was performed without intravenous contrast. The dose-length product was 1670.10 mGy-cm. Automated exposure control and iterative reconstruction technique were employed. COMPARISON: None FINDINGS: No acute fracture or traumatic malalignment. Mild dextrocurvature of the thoracic spine. No paraspinal soft tissue abnormality. Visualized aspects of the lungs are unremarkable. Mild lower thoracic spondylosis. IMPRESSION: 1. No acute abnormality of the thoracic spine. Reviewed, dictated and finalized at location O.
--- NOTE | ~2024-10-15 | CT_ITS ---
EXAMINATION: CT cervical spine wo con DATE: 10/16/2024 01:43 INDICATION: Bilateral leg numbness. Neck pain. TECHNIQUE: Computed tomography (CT) of the cervical spine was performed without intravenous contrast. The dose-length product was 488 mGy-cm. Automated exposure control and iterative reconstruction technique were employed. COMPARISON: CT dated 03/08/2024 FINDINGS: Straightening of cervical lordosis unchanged from prior study. There is mild degenerative disc disease at C5-6. Craniovertebral junction is normal. Odontoid process is normal. No acute fracture or traumatic malalignment. No evidence for perched facet. Spinous processes are normal. Lung apices are unremarkable. IMPRESSION: 1. No acute abnormality of the cervical spine. Reviewed, dictated and finalized at location O.
[2024-10-15 23:45] VITALS: BP 148/83; PULSE 103; RESP 21; TEMP 36.6; O2SAT 99
--- OUTSIDE RECORDS SUMMARY | 2024-10-15 23:46 | XMS_ITS | Clinical Summary ---
Author Organization [facility] Address [address] [place] [address] Care Team Providers Care Picker Operator Name Role Phone Yared Saxena MD Primary Care Provider [phone] Source Comments [facility] Affiliates and Associated Physician Practices is amultiple site organization consisting of ambulatory clinics and hospital sitesin [place], [place], [place] and [place]. This disclosure is being madepursuant to the Care Everywhere program and may not contain all information available regarding this patient. Last updated 17.[facility] Allergies Active Allergy Reactions Criticality Noted Date [...] Sex Assigned at Female 01/24/2023 9:13 PM GROUTER HELPER Legal Sex Female 5:43 AM GROUTER HELPER Gender Identity Female 01/24/2023 9:13 PM GROUTER HELPER Sexual Orientation Straight 01/24/2023 9: 13 PM GROUTER HELPER Last Filed Vital Signs Vital Sign Reading Time Taken Comments Blood Pressure 141/73 01/25/2023 8:01 AM GROUTER HELPER Pulse 83 01/25/2023 8:01 AM GROUTER HELPER Temperature 36.3 C (97.4 F) 01/25/2023 8:01 AM GROUTER HELPER Respiratory Rate 12 01/25/2023 8:01 AM GROUTER HELPER Oxygen Saturation 99% 01/25/2023 8:01 AM GROUTER HELPER Inhaled Oxygen Concentration - - Weight 104.3 kg (230 lb) 01/24/2023 6:56 PM GROUTER HELPER Height 177.8 cm (5' 10) 01/24/2023 6:56 PM GROUTER HELPER Body Mass Index 33 01/24/2023 6:56 PM GROUTER HELPER Plan of Treatment Health Maintenance Due Date Last Done Comments MAMMOGRAM 1982 DTAP/TDAP/TD VACCINES (1 - Tdap) 2001 HEPATITIS B VACCINE (1 of 3 - 19+ 3-dose series) 2001 PNEUMOCOCCAL VACCINE (1 of 2 - PCV) 2001 PAP SMEAR 11/17/2003 HPV VACCINE (1 - 3-dose SCDM series) 2009 COVID-19 VACCINE (1 - season) 2023 DEPRESSION SCREENING 02/21/2024 INFLUENZA VACCINE (#1) 2024 LIPID TESTING 03/29/2029 03/29/2024 ZOSTER VACCINE [...] Management General On track( 020 12:44 PM GROUTER HELPER) Leelee Balbuena, RN Note: Expected end date: ongoing Interventions: Take all medications as prescribed Procedures Procedure Name Priority Date/Time Associated Diagnosis Comments LIPID PROFILE Routine 03/29/2024 9:13 AM GROUTER HELPER Contact with or exposure to communicable disease Screening for diabetes mellitus Pain in joint, multiple sites Screening for lipoid disorders HEPATITIS C RNA QUANTITATIVE Routine 03/29/2024 9:13 AM GROUTER HELPER Contact with or exposure to communicable disease Screening for diabetes mellitus Pain in joint, multiple sites Screening for lipoid disorders HIV-1 HIV-2 ANTIBODY + HIV P24 AG PANEL Routine 03/29/2024 9:13 AM GROUTER HELPER Contact with or exposure to communicable disease Screening for diabetes mellitus Pain in joint, multiple sites Screening for lipoid disorders from Last 3 Months or Most Recently Relevant to Health Maintenance Results * HIV 1 & HIV 2 ANTIBODY (IN HOUSE) (03/29/2024 9:13 AM GROUTER HELPER) Pathologist [facility] [place] HIV1/2 Ab + P24 Ag NON-REACTI VE/NEGATIV E NON-REACTI VE/NEGATIV E 03/29/2024 10:32 AM GROUTER HELPER [facility] Blood BLOOD SPECIMEN / Unknown Venipuncture / Unknown 03/29/2024 9:13 AM GROUTER HELPER 03/29/2024 9:27 AM GROUTER HELPER us Yared Saxena MD LAB - CHEMISTRY ORDERABLES Fin al Result [facility] [address] * HEPATITIS C RNA QUANTITATIVE PCR (03/29/2024 9:13 AM GROUTER HELPER) [facility] HCV Quant by NAAT (IU/mL) Not Detected IU/mL 03/31/2024 6:55 AM GROUTER HELPER [facility] HCV Quant by NAAT (log IU/mL) Not Detected log IU/mL 03/31/2024 6:55 AM GROUTER HELPER [facility] ([facility]) HCV Quant by NAAT Interp Not Detected Not Detected 03/31/2024 6:55 AM GROUTER HELPER [facility] ([facility]) Comment: INTERPRETIVE INFORMATION: HCV by Quantitative [...] and cellular tissue-based products (HCT/P). Performed By: [employer] [address] [place] [address] [employer] Superintendent: Aiden Mejia MD, PhD CLIA Number: [id number] Blood BLOOD SPECIMEN / Unknown Venipuncture / Unknown 03/29/2024 9:13 AM GROUTER HELPER 03/29/2024 9:27 AM GROUTER HELPER Yared Saxena MD LAB - CHEMISTRY ORDERABLES Fin al Result [facility] ([facility]) [address] [place] [address] * LIPID PROFILE (03/29/2024 9:13 AM GROUTER HELPER) Cholesterol 173 <200 mg/dL 03/29/2024 9:54 AM GROUTER HELPER [facility] Triglycerides 83 <150 mg/dL 03/29/2024 9:54 AM GROUTER HELPER [facility] HDL Cholesterol 58 >40 mg/dL 9:54 AM [facility] Chol HDL Ratio 3.0 1.0 - 6.0 03/29/2024 9:54 AM [facility] LDL Calculated 98 65 - 130 mg/dL 03/29/2024 9:54 AM GROUTER HELPER [facility] VLDL Calculated 17 <=30 mg/dL 9:54 AM [facility] Blood BLOOD SPECIMEN / Unknown Venipuncture / Unknown 03/29/2024 9:13 AM GROUTER HELPER 03/29/2024 9:27 AM GROUTER HELPER Narrative AM LABORATORY - 03/29/2024 9:54 AM GROUTER HELPER Lipid Profile Comment: CHOLESTEROL LEVEL..................CLINICAL INTERPRETATION LESS [...] LAB - CHEMISTRY ORDERABLES Fin al Result [facility] [address] [place] [address], [facility] from Last 3 Months or Most Recently Relevant to Health Maintenance Insurance [facility] [id number] [place] [address] [facility] Advance Directives * Full Code (Latest Code Status on File) Date Activated Date Inactivated Comments 01/25/2023 8:37 AM 01/25/2023 11:17 AM Care Teams Picker Operator Relationship Specialty Start Date End Date Yared Saxena MD [address] [facility] [address] [facility] [address] [place] [address] PCP - General Internal Medicine 03/29/24
--- OUTSIDE RECORDS SUMMARY | 2024-10-15 23:46 | XMS_ITS | Clinical Summary ---
Author Organization [facility] Address [address] [place] [address] Care Team Providers Care Robotics Software Engineer Name Role Phone Tiffanie Moura [employer] [employer] [employer] Primary Care Provider [phone] Allergies Active Allergy Reactions Criticality Noted Date Comments Adhesive Other (See comments) Low 10/18/2018 blisters Amoxicillin Hives Medium 02/01/2017 Ampicillin Hives Medium 02/01/2017 Codeine Rash Medium 10/06/2024 Dairy - All Forms And Ingredients Stomach upset Low 02/01/2017 Pt cannot tolerate milk; pt stated can eat cheese Lactose Diarrhea,Vomiting Low 10/18/2018 Penicillins Hives Medium 02/01/2017 Medications No known medications Active Problems Problem Noted Date Diagnosed Date Chronic hepatitis C without hepatic coma 019 Overview (02/11/2021): 12/25/18 Fibroscan CAP 355, E 5.3 kPa gneotype 3 b Opioid withdrawal 02/06/2017 Encounters Date Type Department Care Team Description 10/07/[address] [address] Tiff Martell RN 10/06/2024 1:35 PM CDT - 10/06/2024 5:22 PM CDT Emergency [address] [address] Discharge Disposition: Left without being seen from Last 3 Months Surgical History Surgery Date Site/Laterality Comments EXPLORATORY [...] e alcohol) Personal Safety Answer Date Recorded Have you ever been in or are you currently in a harmful physical or emotional relationship or is someone making you feel afraid or unsafe? Denies 10/06/2024 Comments No Sex and Gender Information Value Date Recorded Sex Assigned at Not on file Legal Sex Female 4:59 AM PROGRAM TECHNICIAN Gender Identity Not on file Sexual Orientation Not on file Obstetrics History Last Filed Vital Signs Vital Sign Reading Time Taken Comments Blood Pressure 159/78 10/06/2024 1:37 PM CDT Pulse 93 10/06/2024 1:37 PM CDT Temperature 36.8 C (98.2 F) 10/06/2024 1:37 PM CDT Respiratory Rate 18 10/06/2024 1:37 PM CDT Oxygen Saturation 98% 10/06/2024 1:37 PM CDT Inhaled Oxygen Concentration - - Weight 124.7 kg (275 lb) 10/06/2024 1:44 PM CDT Height 175.3 cm (5' 9) 02/11/2021 4:46 PM PROGRAM TECHNICIAN Body Mass Index 40.61 02/11/2021 4:46 PM PROGRAM TECHNICIAN Plan of Treatment Health Maintenance Due Date Last Done Comments Breast Cancer Screening-Mammogram 1982 Cervical Cancer Screening 1982 Depression Screening 1982 Varicella Vaccines (1 of 2 - 13+ 2-dose series) 11/17/1995 Hepatitis B Screening 2000 Regular Well Visit/Exam 18-64 2000 HPV Vaccines (1 - 3-dose SCDM series) 2009 Pneumococcal vaccine <65 (2 of 2 - PCV) 10/21/2015 0 10/20/2014 Influenza Vaccine (#1) 2024 DTaP/Tdap/Td Vaccine (2 - Td or Tdap) 11/02/2030 Hepatitis C Screening Completed 10/18/2018, 015 Procedures Procedure Name Priority Date/Time Associated Diagnosis Comments EGFR STAT 10/06/2024 1:48 PM CDT DIFFERENTIAL AUTO STAT 10/06/2024 1:4 8 PM CDT COMPREHENSIVE METABOLIC PANEL STAT 10/06/2024 1:48 PM CDT CBC WITH AUTO DIFFERENTIAL STAT 10/06/2024 1:48 PM CDT from Last 3 Months Results * eGFR (10/06/2024 1:48 PM CDT) eGFR >90 >=60 mL/min/1. 73 m2 Comment: Interpretive Data Reference Interval Normal >/= 90 mL/min/1.73m2 Mildly decreased* 60 - 89 mL/min/1.73m2 Mildly to moderately decreased 45 - 59 mL/min/1.73m2 Moderately to severely decreased 30 - 44 mL/min/1.73m2 Severely decreased 15 - 29 mL/min/1.73m2 Kidney Failure < 15 mL/min/1.73m2 *Relative to young adult level Estimated glomerular filtration rate is determined by the 2020 CKD-EPI equation recommended by the National Kidney Foundation (A Unifying Approach to GFR Estimation: Recommendations of the NKF-ASK Task Force on Reassessing the Inclusion of Race in Diagnosing Kidney Disease, JASN 2020). The CKD-EPI equation should not be used for patients with unstable renal function and has not been validated in children and those over 70. Current interpretive data was last reviewed 2020. Blood 10/06/2024 1:48 PM CDT 10/06/2024 1:51 PM CDT Janine BERRIOS LAB BLOOD ORDERABLES Final Result [facility] [address] [facility] [place] [address] * Differential, auto (10/06/2024 1:48 PM CDT) Neutrophil abs 4.86 1.50 - 6.50 K/cumm Imm gran abs 0.02 0.00 - 0.10 K/cumm [facility] Lymphocyte abs 2.21 0.80 - 3.30 K/cumm [facility] Monocyte abs 0.56 0.20 - 0.80 K/cumm [facility] Eosinophil abs 0.35 0.00 - 0.50 K/cumm [facility] Basophil abs 0.04 0.00 - 0.10 K/cumm [facility] Neutrophil pct 60.4 % [facility] Comment: Interpretive Data Percent cell count reference ranges are not reported, since discordance with absolute values may lead to misinterpretation of CBC data. Current Interpretive Data was last revised on 2017. Imm gran pct 0.2 % [facility] Comment: Interpretive Data Percent cell count reference ranges are not reported, since discordance with absolute values may lead to misinterpretation of CBC data. Current Interpretive Data was last revised on 2017. Lymphocyte pct 27.5 % [facility] Comment: Interpretive Data Percent cell count reference ranges are not reported, since discordance with absolute values may lead to misinterpretation of CBC data. Current Interpretive Data was last revised on 2017. Monocyte pct 7.0 % [facility] Comment: Interpretive Data Percent cell count reference ranges are not reported, since discordance with absolute values may lead to misinterpretation of CBC data. Current Interpretive Data was last revised on 2017. Eosinophil pct 4.4 % [facility] Comment: Interpretive Data Percent cell count reference ranges are not reported, since discordance with absolute values may lead to misinterpretation of CBC data. Current Interpretive Data was last revised on 2017. Basophil pct 0.5 % [facility] Comment: Interpretive Data Percent cell count reference ranges are not reported, since discordance with absolute values may lead to misinterpretation of CBC data. Current Interpretive Data was last revised on 2017. Blood 10/06/2024 1:48 PM CDT 10/06/2024 1:51 PM CDT Janine BERRIOS LAB BLOOD ORDERABLES Final Result Performing Organization Address [facility] de Phone Number [facility] [address] [address] * CBC with auto differential (10/06/2024 1:48 PM CDT) [facility] WBC 8.04 3.80 - 9.90 K/cumm Hgb 13.5 11.9 - 15.5 g/dL [facility] Hct 40.1 35.6 - 45.5 % [facility] Plt 300 150 - 400 K/cumm [facility] MPV 10.4 9.1 - 12.3 fL [facility] RBC 4.54 3.90 - 5.20 M/cumm [facility] MCV 88.3 81.3 - 96.4 fL [facility] MCH 29.7 27.1 - 33.3 pg [facility] MCHC 33.7 32.3 - 35.7 g/dL [facility] RDW CV 12.1 11.1 - 14.9 % [facility] RDW SD 38.9 35.7 - 48.1 fL [facility] NRBC abs 0.00 0.00 - 0.01 K/cumm [facility] Blood 10/06/2024 1:48 PM CDT 10/06/2024 1:51 PM CDT Janine BERRIOS LAB BLOOD ORDERABLES Final Result Performing Organization Address [facility] de Phone Number [facility] [address] [place] [address] * Comprehensive metabolic panel (10/06/2024 1:48 PM CDT) [facility] Sodium 139 135 - 145 mmol/L Potassium, pl 3.6 3.3 - 4.9 mmol/L [facility] Comment:Hemolyzed; Potassium value may be falsely elevated by as much as 1.0 mmol/L. Suggest redraw and reanalysis. Chloride 103 97 - 110 mmol/L [facility] CO2 27 22 - 32 mmol/L [facility] Anion gap 9 2 - 15 mmol/L [facility] BUN 17 6 - 25 mg/dL [facility] Creatinine 0.77 0.60 - 1.10 mg/dL [facility] Glucose 120 70 - 199 mg/dL [facility] Comment: Interpretive Data Fasting glucose >/= 126 mg/dl is diagnostic for diabetes. Fasting is defined as no caloric intake for at least 8 hours. Fasting glucose between 100 mg/dl to 125 mg/dl is diagnostic of prediabetes. In a patient with classic symptoms of hyperglycemia or hyperglycemic crisis, a random glucose >/= 200 mg/dl is diagnostic for diabetes. In the absence of unequivocal hyperglycemia, results should be confirmed by repeat testing. The classification and Diagnosis of Diabetes Diabetes Care 202; 46: S19-S40. Current interpretive data was last revised 2022. Calcium 8.8 8.5 - 10.3 mg/dL [facility] Bilirubin, total 0.2 0.1 - 1.2 mg/dL [facility] Protein, pl 6.9 6.5 - 8.5 g/dL [facility] Albumin 3.8 3.5 - 5.0 g/dL [facility] Alk phos 106 40 - 130 Units/L [facility] ALT 11 7 - 45 Units/L [facility] AST 16 10 - 45 Units/L [facility] Blood 10/06/2024 1:48 PM CDT 10/06/2024 1:51 PM CDT Janine BERRIOS LAB BLOOD ORDERABLES Final Result [facility] [address] [facility] Department [place] [address] from Last 3 Months Insurance [facility] Advance Directives For more information, please contact: [phone] * Full Code (Latest Code Status on File) Date Activated Date Inactivated Comments 02/01/2017 6:04 PM 02/04/2017 11:00 AM Care Teams Robotics Software Engineer Relationship Specialty Start Date End Date Tiffanie Moura NP [address] [place] [address] PCP - General Nurse Practitioner 09/03/24
[2024-10-16 00:12] LABS: BEDSIDEPREGUCG Negative (Negative)
[2024-10-16 00:53] LABS: BEDSIDEPREGUCG Negative (Negative)
[2024-10-16 00:56] LABS: Add Urine Microscopic? NO; Appearance Urine Clear (Clear); Glucose Urine UA Negative (Negative); Leukocyte Esterase Ur Negative LEU/UL (Negative); Nitrate Urine Negative (Negative); Specific Grav Ur 1.024 (1.001-1.035)
--- OUTSIDE RECORDS SUMMARY | 2024-10-16 01:01 | XMS_ITS | Clinical Summary ---
Author Organization [facility] [employer] Address [address] [facility] [place] [address] Care Team Providers Care Machine Precision Etcher Name Role Phone Yared Saxena MD Primary Care Provider [phone] Source Comments [facility] [employer],non-[facility] Affiliates and Associated Physician Practices is amultiple site organization consisting of ambulatory clinics and hospital sitesin [place], [place], [place] and [place]. This disclosure is being madepursuant to the Care Everywhere program and may not contain all information available regarding this patient. Last updated 17.[facility] [employer] Allergies Active Allergy Reactions Criticality Noted Date [...] Sex Assigned at Female 01/24/2023 9:13 PM REAL ESTATE RENTAL AGENT Legal Sex Female 5:43 AM REAL ESTATE RENTAL AGENT Gender Identity Female 01/24/2023 9:13 PM REAL ESTATE RENTAL AGENT Sexual Orientation Straight 01/24/2023 9: 13 PM REAL ESTATE RENTAL AGENT Last Filed Vital Signs Vital Sign Reading Time Taken Comments Blood Pressure 141/73 01/25/2023 8:01 AM REAL ESTATE RENTAL AGENT Pulse 83 01/25/2023 8:01 AM REAL ESTATE RENTAL AGENT Temperature 36.3 C (97.4 F) 01/25/2023 8:01 AM REAL ESTATE RENTAL AGENT Respiratory Rate 12 01/25/2023 8:01 AM REAL ESTATE RENTAL AGENT Oxygen Saturation 99% 01/25/2023 8:01 AM REAL ESTATE RENTAL AGENT Inhaled Oxygen Concentration - - Weight 104.3 kg (230 lb) 01/24/2023 6:56 PM REAL ESTATE RENTAL AGENT Height 177.8 cm (5' 10) 01/24/2023 6:56 PM REAL ESTATE RENTAL AGENT Body Mass Index 33 01/24/2023 6:56 PM REAL ESTATE RENTAL AGENT Plan of Treatment Health Maintenance Due Date [...] Management General On track( 020 12:44 PM REAL ESTATE RENTAL AGENT) Leelee Balbuena, RN Note: Expected end date: ongoing Interventions: Take all medications as prescribed Procedures Procedure Name Priority Date/Time Associated Diagnosis Comments LIPID PROFILE Routine 03/29/2024 9:13 AM REAL ESTATE RENTAL AGENT Contact with or exposure to communicable disease Screening for diabetes mellitus Pain in joint, multiple sites Screening for lipoid disorders HEPATITIS C RNA QUANTITATIVE Routine 03/29/2024 9:13 AM REAL ESTATE RENTAL AGENT Contact with or exposure to communicable disease Screening for diabetes mellitus Pain in joint, multiple sites Screening for lipoid disorders HIV-1 HIV-2 ANTIBODY + HIV P24 AG PANEL Routine 03/29/2024 9:13 AM REAL ESTATE RENTAL AGENT Contact with or exposure to communicable disease Screening for diabetes mellitus Pain in joint, multiple sites Screening for lipoid disorders from Last 3 Months or Most Recently Relevant to Health Maintenance Results * HIV 1 & HIV 2 ANTIBODY (IN HOUSE) (03/29/2024 9:13 AM REAL ESTATE RENTAL AGENT) Pathologist [facility] HIV1/2 Ab + P24 Ag NON-REACTI VE/NEGATIV E NON-REACTI VE/NEGATIV E 03/29/2024 10:32 AM REAL ESTATE RENTAL AGENT [facility] Blood BLOOD SPECIMEN / Unknown Venipuncture / Unknown 03/29/2024 9:13 AM REAL ESTATE RENTAL AGENT 03/29/2024 9:27 AM REAL ESTATE RENTAL AGENT us Yared Saxena MD LAB - CHEMISTRY ORDERABLES Fin al Result [facility] [address] * HEPATITIS C RNA QUANTITATIVE PCR (03/29/2024 9:13 AM REAL ESTATE RENTAL AGENT) [facility] HCV Quant by NAAT (IU/mL) Not Detected IU/mL 03/31/2024 6:55 AM REAL ESTATE RENTAL AGENT [facility] HCV Quant by NAAT (log IU/mL) Not Detected log IU/mL 03/31/2024 6:55 AM REAL ESTATE RENTAL AGENT [facility] HCV Quant by NAAT Interp Not Detected Not Detected 03/31/2024 6:55 AM REAL ESTATE RENTAL AGENT [facility] ([facility] Comment: INTERPRETIVE INFORMATION: HCV by Quantitative NAAT [...] and cellular tissue-based products (HCT/P). Performed By: [employer] [address] [place] [address] [employer] Boning Machine Feeder: Aiden Mejia MD, PhD CLIA Number: [id number] Blood BLOOD SPECIMEN / Unknown Venipuncture / Unknown 03/29/2024 9:13 AM REAL ESTATE RENTAL AGENT 03/29/2024 9:27 AM REAL ESTATE RENTAL AGENT Yared Saxena MD LAB - CHEMISTRY ORDERABLES Fin al Result [facility] [employer] ([facility] [address] [place] [address] * LIPID PROFILE (03/29/2024 9:13 AM REAL ESTATE RENTAL AGENT) Cholesterol 173 <200 mg/dL 03/29/2024 9:54 AM REAL ESTATE RENTAL AGENT [facility] Triglycerides 83 <150 mg/dL 03/29/2024 9:54 AM REAL ESTATE RENTAL AGENT [facility] HDL Cholesterol 58 >40 mg/dL 9:54 AM [facility] Chol HDL Ratio 3.0 1.0 - 6.0 03/29/2024 9:54 AM [facility] LDL Calculated 98 65 - 130 mg/dL 03/29/2024 9:54 AM REAL ESTATE RENTAL AGENT [facility] VLDL Calculated 17 <=30 mg/dL 9:54 AM [facility] Blood BLOOD SPECIMEN / Unknown Venipuncture / Unknown 03/29/2024 9:13 AM REAL ESTATE RENTAL AGENT 03/29/2024 9:27 AM REAL ESTATE RENTAL AGENT Narrative AM LABORATORY - 03/29/2024 9:54 AM REAL ESTATE RENTAL AGENT Lipid Profile Comment: CHOLESTEROL LEVEL..................CLINICAL INTERPRETATION LESS [...] LAB - CHEMISTRY ORDERABLES Fin al Result [facility] [address] [place] [address], [facility] from Last 3 Months or Most Recently Relevant to Health Maintenance Insurance [facility] [id number] [place] [address] [facility] Advance Directives * Full Code (Latest Code Status on File) Date Activated Date Inactivated Comments 01/25/2023 8:37 AM 01/25/2023 11:17 AM Care Teams Machine Precision Etcher Relationship Specialty Start Date End Date Yared Saxena MD [address] [facility] [address] [facility] [address] [place] [address] PCP - General Internal Medicine 03/29/24
--- OUTSIDE RECORDS SUMMARY | 2024-10-16 01:01 | XMS_ITS | Clinical Summary ---
Author Organization [facility] Address [address] [place] [address] Care Team Providers Care Lead Slot Technician Name Role Phone Tiffanie Moura PORT TRAFFIC MANAGER Primary Care Provider [phone] Allergies Active Allergy Reactions Criticality Noted Date [...] Type Department Care Team Description 10/07/[address] [address] Tiff Martell RN 10/06/2024 1:35 PM CDT - 10/06/2024 5:22 PM CDT Emergency [address] [address] Discharge Disposition: Left without being seen from [...] file Legal Sex Female 4:59 AM CLINICAL VETERINARIAN Gender Identity Not on file Sexual Orientation [...] 175.3 cm (5' 9) 02/11/2021 4:46 PM CLINICAL VETERINARIAN Body Mass Index 40.61 02/11/2021 4:46 PM CLINICAL VETERINARIAN Plan of Treatment Health Maintenance Due Date [...] LAB BLOOD ORDERABLES Final Result [facility] [address] [facility] Department of Laboratories [place] [address] * Differential, auto (10/06/2024 1:48 PM CDT) Neutrophil abs 4.86 1.50 - 6.50 K/cumm Imm gran abs 0.02 0.00 - 0.10 K/cumm [facility] Lymphocyte abs 2.21 0.80 - 3.30 K/cumm [facility] Monocyte abs 0.56 0.20 - 0.80 K/cumm [facility] Eosinophil abs 0.35 0.00 - 0.50 K/cumm [facility] Basophil abs 0.04 0.00 - 0.10 K/cumm [facility] Neutrophil pct 60.4 % [facility] Comment: Interpretive Data Percent cell count reference ranges are not reported, since discordance with absolute values may lead to misinterpretation of CBC data. Current Interpretive Data was last revised on 2017. Imm gran pct 0.2 % [facility] Comment: Interpretive Data Percent cell count reference ranges are not reported, since discordance with absolute values may lead to misinterpretation of CBC data. Current Interpretive Data was last revised on 2017. Lymphocyte pct 27.5 % [facility] Comment: Interpretive Data Percent cell count reference ranges are not reported, since discordance with absolute values may lead to misinterpretation of CBC data. Current Interpretive Data was last revised on 2017. Monocyte pct 7.0 % [facility] Comment: Interpretive Data Percent cell count reference ranges are not reported, since discordance with absolute values may lead to misinterpretation of CBC data. Current Interpretive Data was last revised on 2017. Eosinophil pct 4.4 % [facility] Comment: Interpretive Data Percent cell count reference ranges are not reported, since discordance with absolute values may lead to misinterpretation of CBC data. Current Interpretive Data was last revised on 2017. Basophil pct 0.5 % [facility] Comment: Interpretive Data Percent cell count reference ranges are not reported, since discordance with absolute values may lead to misinterpretation of CBC data. Current Interpretive Data was last revised on 2017. Blood 10/06/2024 1:48 PM CDT 10/06/2024 1:51 PM CDT Janine BERRIOS LAB BLOOD ORDERABLES Final Result Performing Organization Address [facility] de Phone Number [facility] [address] [address] * CBC with auto differential (10/06/2024 1:48 PM CDT) [facility] WBC 8.04 3.80 - 9.90 K/cumm Hgb 13.5 11.9 - 15.5 g/dL [facility] Hct 40.1 35.6 - 45.5 % [facility] Plt 300 150 - 400 K/cumm [facility] MPV 10.4 9.1 - 12.3 fL [facility] RBC 4.54 3.90 - 5.20 M/cumm [facility] MCV 88.3 81.3 - 96.4 fL [facility] MCH 29.7 27.1 - 33.3 pg [facility] MCHC 33.7 32.3 - 35.7 g/dL [facility] RDW CV 12.1 11.1 - 14.9 % [facility] RDW SD 38.9 35.7 - 48.1 fL [facility] NRBC abs 0.00 0.00 - 0.01 K/cumm [facility] Blood 10/06/2024 1:48 PM CDT 10/06/2024 1:51 PM CDT Janine BERRIOS LAB BLOOD ORDERABLES Final Result Performing Organization Address [facility] de Phone Number [facility] [address] [place] [address] * Comprehensive metabolic panel (10/06/2024 1:48 PM CDT) [facility] Sodium 139 135 - 145 mmol/L Potassium, pl 3.6 3.3 - 4.9 mmol/L [facility] Comment:Hemolyzed; Potassium value may be falsely elevated by as much as 1.0 mmol/L. Suggest redraw and reanalysis. Chloride 103 97 - 110 mmol/L [facility] CO2 27 22 - 32 mmol/L [facility] Anion gap 9 2 - 15 mmol/L [facility] BUN 17 6 - 25 mg/dL [facility] Creatinine 0.77 0.60 - 1.10 mg/dL [facility] Glucose 120 70 - 199 mg/dL [facility] Comment: Interpretive Data Fasting glucose >/= [...] 2022. Calcium 8.8 8.5 - 10.3 mg/dL [facility] Bilirubin, total 0.2 0.1 - 1.2 mg/dL [facility] Protein, pl 6.9 6.5 - 8.5 g/dL [facility] Albumin 3.8 3.5 - 5.0 g/dL [facility] Alk phos 106 40 - 130 Units/L [facility] ALT 11 7 - 45 Units/L [facility] AST 16 10 - 45 Units/L [facility] Blood 10/06/2024 1:48 PM CDT 10/06/2024 1:51 PM CDT Janine BERRIOS LAB BLOOD ORDERABLES Final Result [facility] [address] [facility] Department of Laboratories [place] [address] from Last 3 Months Insurance [facility] Advance Directives For more information, please contact: [phone] * Full Code (Latest Code Status on File) Date Activated Date Inactivated Comments 02/01/2017 6:04 PM 02/04/2017 11:00 AM Care Teams Lead Slot Technician Relationship Specialty Start Date End Date Tiffanie Moura NP [address] [place] [address] PCP - General Nurse Practitioner 09/03/24
--- OUTSIDE RECORDS SUMMARY | 2024-10-16 01:01 | XMS_ITS | Encounter Summary ---
Author Organization [facility] Address [address] [facility] [place] [address] Care Team Providers Care Timber Feller Name Role Phone Josué Farias Primary Care Provider Yared Saxena MD Primary Care Provider [phone] Encounter Details Date Type Department Care Team (Late st Contact Info) Description 01/25/2023 Ophth Exam [facility] - Ophthalmology [address] [place] [id number] Austin Doan MD [address] [facility] [place] [address] Social History Tobacco Use Types Packs/Day Years Used Date Smoking Tobacco: Every Day Cigarettes Smokeless Tobacco: Never Comments:also vapes Alcohol Use Standard Drinks/Week Comments Not Currently 0 (1 standard drink = 0.6 oz pur e alcohol) Comments Unknown Sex and Gender Information Value Date Recorded Sex Assigned at Female 01/24/2023 9:13 PM [employer] Legal Sex Female 5:43 AM [employer] Gender Identity Female 01/24/2023 9:13 PM [employer] Sexual Orientation Straight 01/24/2023 9: 13 PM [employer] documented as of this encounter Plan of Treatment Not on file documented as of this encounter Goals Goal Patient Goal Type Associated Problems Recent Progress Patient-Stated? Author Medication Management General On track( 020 12:44 PM [employer]) Leelee Balbuena, RN Note: Expected end date: ongoing Interventions: Take all medications as prescribed documented as of this encounter Visit Diagnoses Not on filedocumented in this encounter Care Teams Timber Feller Relationship Specialty Start Date End Date Josué Farias, COMPUTER SCIENCE INSTRUCTOR-POWER TRANSFORMER REPAIR SUPERVISOR PCP - General Nurse Practitioner Family 08/21/1803/28 Yared Saxena MD [address] [place] [id number] PCP - General Internal Medicine 03/29/24 documented as of this encounter
[2024-10-16 01:05] LABS: Hematocrit 42.0 % (37.0-47.0); Hemoglobin 13.6 g/dL (12.0-15.0); Immature Granulocyte Percent A 0.2 % (0-0.5); Lymphocytes Absolute Auto 3.13 K/mm3 (0.9-3.2); Mean Corpuscular HGB Conc 32.4 g/dl (32-36); Mean Corpuscular Hemoglobin 29.2 pg (26-34); Mean Corpuscular Volume 90.1 fl (80-100); Nucleated Red Blood Cells Absolute Auto 0.000 K/mm3 (0.0-0.012); Nucleated Red Blood Cells Perc 0.0 % (0.0-0.2); Platelet Count Result 338 k/mm3 (150-375); Red Blood Count 4.66 M/mm3 (4.2-5.4); White Blood Count 10.3 K/mm3 (4.5-10.0)
[2024-10-16 01:17] LABS: Alanine Aminotransferase 16 U/L (6-35); Albumin Level 4.3 g/dL (3.5-5.1); Alkaline Phosphatase 91 U/L (38-126); Anion Gap 7 mmol/L (4-12); Aspartate Amino Transferase 25 U/L (14-36); Bilirubin,Total 0.3 mg/dL (0.2-1.3); Blood Urea Nitrogen 18 mg/dL (7-17); Calcium 9.1 mg/dL (8.4-10.2); Carbon Dioxide 28 mmol/L (22-30); Chloride 101 mmol/L (98-107); Estimated CRCL calculation 118 ml/min; Estimated Glomerular Filt Rate > 60; Glucose 96 mg/dL (65-110); Magnesium 2.1 mg/dL (1.6-2.3); Potassium 3.5 mmol/L (3.4-5.0); Sodium 136 mmol/L (137-145); Total Protein 7.8 g/dL (6.3-8.2)
[2024-10-16 01:23] LABS: SPREG INTERNAL CONTROL Positive; Serum Qual hCG Negative
--- NOTE | 2024-10-16 02:19 | ED_ITS ---
HPI - Back Pain/Injury General Chief Complaint: Back Pain/Injury Stated Complaint: back pain and leg numbness, left thigh pain Time Seen by Provider: 10/16/24 00:50 History of Present Illness HPI Narrative: Patient is a 43-year-old female who presents emergency department this evening complaining of lower back pain and left leg numbness and left leg shooting nerve like pain. States that symptoms started approximately 2 weeks ago. Patient reports that she has had episodes where she urinated on herself without meaning to. Admits to some pelvic pressure. Denies any recent trauma or falls. Denies any additional symptoms or concerns. Related Data Home Medications ?Medication ?Instructions ?Recorded ?Confirmed ?Last Taken ?Type atomoxetine 100 mg capsule mg PO 05/20/24 Unknown His tory (Strattera) bupropion HCl 300 mg 24 hr tablet, mg PO 05/20/24 Unk nown History extended release fluticasone propionate 50 intranasal 05/20/24 Unknown History mcg/actuation nasal spray,suspension pantoprazole 40 mg tablet,delayed mg PO 05/20/24 Unkn own History release Allergies Allergy/AdvReac Type Severity Reaction Status Date / Time adhesive Allergy Intermediate Blister Verified 08/09/24 10:21 ampicillin Allergy Intermediate Hives Verified 08/09/24 10:21 codeine Allergy Intermediate Rash Verified 08/09/24 10:21 erythromycin base Allergy Intermediate Hives Verified 08/09/24 10:21 Penicillins Allergy Intermediate Rash Verified 08/09/24 10:21 amoxicillin (From Augmentin) Allergy Mild Diarrhea Verified 08/09/24 10:21 clavulanic acid (From Allergy Mild Diarrhea Verified 08/09/24 10:21 Augmentin) hydromorphone Allergy Unknown Pt has hx Verified 08/13/24 15:01 of heroin addiction methylprednisolone (From Allergy Itching Verified 08/09/24 12:51 Solu-Medrol) Review of Systems 2 Review of Systems: All systems are reviewed and are negative unless stated otherwise in the HPI. [facility] Past Medical History Medical History Substance abuse Hepatitis C Anxiety Depression Surgical History Surgical History Hx of tonsillectomy H/O exploratory laparotomy Family History Family History Father Hypertension Mother Hx of psoriatic arthritis Cardiomyopathy Other Diabetes mellitus Social History Social History Smoking status: Current every day smoker Tobacco type: cigarettes Alcohol intake: former Substance use: former Substance use type: heroin and methamphetamine Last use: clean for over 2 years Living arrangements: with family Gender identity (if verbalized by the patient): Female Exam 2 Narrative: General: Alert, awake, afebrile, in no acute distress. HEENT: PERRL, no rhinorrhea, no post nasal drip, oropharynx clear. Neck: Trachea midline, no JVD, no lymphadenopathy. Cardiovascular: Regular rate and rhythm, no murmurs, rubs or gallops, no peripheral edema. Respiratory: Clear to auscultation bilaterally, no tachypnea, no wheezing, no rhonchi, no rubs, no respiratory distress. Abdomen: Soft, nontender, nondistended, no rebound, no guarding, no peritoneal signs. Rectal: Exam performed with the presence of female nurse painting supervisor revealing good rectal tone. Musculoskeletal: No joint swelling or deformity, normal muscle tone. Skin: No rashes or petechia, no signs of infection. Psychiatric: Alert and oriented, normal behavior and judgment for situation. Neurological: Alert and oriented to person, place, and time. Follows all commands. No focal deficits, speech is clear and fluent. Course Vital Signs Vital signs: Vital Signs Temperature 97.9 F 10/15/24 23:45 Pulse Rate 103 H 10/15/24 23:45 Respiratory Rate 21 H 10/15/24 23:45 Blood Pressure 148/83 H 10/15/24 23:45 Pulse Oximetry 99 10/15/24 23:45 Oxygen Delivery Room Air 10/15/24 23:45 Temperature 97.9 F 10/15/24 23:45 Pulse Rate 103 H 10/15/24 23:45 Respiratory Rate 21 H 10/15/24 23:45 Blood Pressure 148/83 H 10/15/24 23:45 Pulse Oximetry 99 10/15/24 23:45 Oxygen Delivery Room Air 10/15/24 23:45 MDM - Back Pain/Injury MDM Narrative Medical decision making narrative: The patient was evaluated by myself in the emergency department. History is obtained from patient who is an independent historian and physical exam was performed. External medical records were reviewed at this time. IV was established and pertinent tests were ordered. Laboratory results obtained revealing no acute process. Urinalysis unremarkable. Post void residual revealed 2 cc of urine. Imaging studies obtained included CT C/ T/L-spine without IV contrast and CT abdomen pelvis with IV contrast which was independently interpreted by me revealing mild left foraminal stenosis at the L5-S1 level otherwise unremarkable, which is pending final radiology interpretation. Differential diagnosis considerations include quad equina, nerve compression, sciatica, epidural hematoma/abscess. Comorbidities impacting this visit include none. I have evaluated and discussed social determinants of health with the patient that could potentially impact subsequent diagnosis and treatment plans. On repeat assessment of the patient, reevaluation revealed that the patient is doing well and is in no acute distress. Patient symptoms have remained stable since she arrived to our emergency department. Repeat vital signs were all reviewed and noted to be stable. Differential diagnosis and treatment plan were discussed with the patient at bedside. Patient agrees with discussion and after shared medical decision making agrees with discharge. All questions were answered to the patient's satisfaction. Patient will follow up with Neurosurgery in 3-5 days. She was informed that if he continues to have symptoms she may need an MRI of her lower back and patient is in agreement. Patient was provided with strict return precautions and instructed to return to the emergency department if any new or worsening symptoms develop. The patient was discharged in stable condition. Lab Data 10/16/24 01:01 10/16/24 01:01 Labs: Lab Results 10/16/24 10/16/24 10/16/24 Range/Units 00:09 00:11 00:51 WBC (4.5-10.0) K/mm3 RBC (4.2-5.4) M/mm3 Hgb (12.0-15.0) g/dL Hct (37.0-47.0) % MCV (80-100) fl MCH (26-34) pg MCHC (32-36) g/dl RDW (11.5-14.5) % Plt Count (150-375) k/mm3 MPV (7.4-10.4) fl Immature Gran % (Auto) (0-0.5) % Neut % (Auto) (45.5-73.1) % Lymph % (Auto) (18.3-44.2) % [place] % (Auto) (2.6-8.5) % Eos % (Auto) (0-4.4) % Baso % (Auto) (0.2-1.2) % Lymph # (Auto) (0.9-3.2) K/mm3 [place] # (Auto) (0.1-0.6) K/mm3 Eos # (Auto) (0-0.3) K/mm3 Baso # (Auto) (0.0-0.1) K/mm3 Abs Immat Gran (auto) (0.00-0.031) K/mm3 Absolute Neuts (auto) (1.3-6.7) K/mm3 Absolute Nucleated RBC (0.0-0.012) K/mm3 Nucleated RBC % (0.0-0.2) % Sodium (137-145) mmol/L Potassium (3.4-5.0) mmol/L Chloride (98-107) mmol/L Carbon Dioxide (22-30) mmol/L Anion Gap (4-12) mmol/L BUN (7-17) mg/dL Creatinine (0.7-1.0) mg/dL Estim Creat Clear Calc ml/min Estimated GFR (59 - ) Glucose (65-110) mg/dL Lactic Acid (0.7-2.0) mmol/L Calcium (8.4-10.2) mg/dL Magnesium (1.6-2.3) mg/dL Total Bilirubin (0.2-1.3) mg/dL AST (14-36) U/L ALT (6-35) U/L Alkaline Phosphatase (38-126) U/L Total Protein (6.3-8.2) g/dL Albumin (3.5-5.1) g/dL Serum HCG, Qual Urine Color Yellow (Yellow) Urine Appearance Clear (Clear) Urine pH 5.5 (5.0-9.0) Ur Specific Russell 1.024 (1.001-1.035) Urine Protein Negative (Negative) mg/dL Urine Glucose (UA) Negative (Negative) mg/dL Urine Ketones Negative (Negative) mg/dL Ur Blood (Man) Negative (Negative) Urine Nitrate Negative (Negative) Urine Bilirubin Negative (Negative) Urine Urobilinogen 0.2 (<2.0) mg/dL Leukocyte Esterase Rfl Negative (Negative) DARIANA/UL POC Urine HCG, Qual Negative Negative (Negative) 10/16/24 10/16/24 10/16/24 Range/Units 01:01 01:01 01:12 WBC 10.3 H (4.5-10.0) K/mm3 RBC 4.66 (4.2-5.4) M/mm3 Hgb 13.6 (12.0-15.0) g/dL Hct 42.0 (37.0-47.0) % MCV 90.1 (80-100) fl MCH 29.2 (26-34) pg MCHC 32.4 (32-36) g/dl RDW 12.0 (11.5-14.5) % Plt Count 338 (150-375) k/mm3 MPV 10.2 (7.4-10.4) fl Immature Gran % (Auto) 0.2 (0-0.5) % Neut % (Auto) 59.8 (45.5-73.1) % Lymph % (Auto) 30.5 (18.3-44.2) % [place] % (Auto) 6.2 (2.6-8.5) % Eos % (Auto) 2.9 (0-4.4) % Baso % (Auto) 0.4 (0.2-1.2) % Lymph # (Auto) 3.13 (0.9-3.2) K/mm3 [place] # (Auto) 0.6 (0.1-0.6) K/mm3 Eos # (Auto) 0.3 (0-0.3) K/mm3 Baso # (Auto) 0.0 (0.0-0.1) K/mm3 Abs Immat Gran (auto) 0.02 (0.00-0.031) K/mm3 Absolute Neuts (auto) 6.1 (1.3-6.7) K/mm3 Absolute Nucleated RBC 0.000 (0.0-0.012) K/mm3 Nucleated RBC % 0.0 (0.0-0.2) % Sodium 136 L (137-145) mmol/L Potassium 3.5 (3.4-5.0) mmol/L Chloride 101 (98-107) mmol/L Carbon Dioxide 28 (22-30) mmol/L Anion Gap 7 (4-12) mmol/L BUN 18 H (7-17) mg/dL Creatinine 0.79 (0.7-1.0) mg/dL Estim Creat Clear Calc 118 ml/min Estimated GFR > 60 (59 - ) Glucose 96 (65-110) mg/dL Lactic Acid 0.9 (0.7-2.0) mmol/L Calcium 9.1 (8.4-10.2) mg/dL Magnesium 2.1 Cancelled (1.6-2.3) mg/dL Total Bilirubin 0.3 (0.2-1.3) mg/dL AST 25 (14-36) U/L ALT 16 (6-35) U/L Alkaline Phosphatase 91 (38-126) U/L Total Protein 7.8 (6.3-8.2) g/dL Albumin 4.3 (3.5-5.1) g/dL Serum HCG, Qual Negative Urine Color (Yellow) Urine Appearance (Clear) Urine pH (5.0-9.0) Ur Specific Russell (1.001-1.035) Urine Protein (Negative) mg/dL Urine Glucose (UA) (Negative) mg/dL Urine Ketones (Negative) mg/dL Ur Blood (Man) (Negative) Urine Nitrate (Negative) Urine Bilirubin (Negative) Urine Urobilinogen (<2.0) mg/dL Leukocyte Esterase Rfl (Negative) DARIANA/UL POC Urine HCG, Qual (Negative) Discharge Plan Discharge Clinical Impression: Left sciatic nerve pain Patient Disposition: Home Condition: Improved Instructions: Antibiotic Form, Sciatica (ED) Additional Instructions: Please follow-up with neurosurgeon you were provided with today regarding your left-sided leg numbness. Call tomorrow to set up a follow-up appointment to be seen within the next 3-5 days. Return to the emergency department if any new or worsening symptoms develop. Patient Language: Serbian Prescriptions: No Action pantoprazole 40 mg tablet,delayed release (DR/EC) PO fluticasone propionate 50 mcg/actuation spray,suspension INTRANASAL bupropion HCl 300 mg tablet extended release 24 hr PO atomoxetine [Strattera] 100 mg capsule PO ibuprofen 800 mg tablet 800 mg PO TID PRN (Reason: pain) Qty: 30 0RF methocarbamol 750 mg tablet 750 mg PO Q8H PRN (Reason: muscle pain/spasm) Qty: 30 0RF methylprednisolone [Medrol (Mychal)] 4 mg tablets,dose pack See Rx Instructions PO .COMPLEX Qty: 21 0RF Rx Instructions: orally per package directions cetirizine [Zyrtec] 10 mg tablet 10 mg PO DAILY Qty: 20 0RF albuterol sulfate [Ventolin HFA] 90 mcg/actuation HFA aerosol inhaler 2 puff inhalation QID PRN (Reason: shortness of breath or wheezing) Qty: 8.5 0RF prednisone 20 mg tablet 40 mg PO DAILY 4 Days Qty: 8 0RF ipratropium-albuterol 0.5 mg-3 mg(2.5 mg base)/3 mL solution for nebulization 3 ml inhalation QID PRN (Reason: shortness of breath) Qty: 90 0RF benzonatate 200 mg capsule 200 mg PO BID PRN (Reason: cough) Qty: 14 0RF naproxen 500 mg tablet 500 mg PO BID PRN (Reason: pain) Qty: 20 0RF Follow-up/Referrals: Yared Saxena MD [Primary Care Provider, Hospitalist] Laura Churchill MD [Physician, Neurosurgery] - 3 Days Time of Disposition: 02:52
== END 2024-10-16 02:59 | disposition home or self-care (01) ==
PROVIDERS: Registered Nurse; Emergency Provider Emergency Medicine; PCP Internal Medicine
DX: M54.42 Lumbago with sciatica, left side (principal); F41.9 Anxiety disorder, unspecified; F32.A Depression, unspecified
CPT/HCPCS: 36415; 72125; 72128; 72132; 74177; 80053; 81003; 81025; 83605; 83735; 84703; 85025; 99284; Q9967